=== PATIENT | female | born 1995 | race Caucasian/White ===

== ENCOUNTER 2020-06-08 16:24 | Outpatient (REF) | payer SELFPAY ==
[2020-06-10 21:31] LABS: SARS-CoV-2 RNA Undetected (Undetected)
== END 2020-06-08 16:44 ==
LOC: NCHCN 16:24
PROVIDERS: Visit Provider Family Medicine
DX: Z20.828 Contact with and (suspected) exposure to other viral communicable diseases (principal)
CPT/HCPCS: U0003

== ENCOUNTER 2020-07-28 14:55 | Outpatient (REF) | payer OTHER, SELFPAY ==
[2020-07-28 16:12] LABS: HCG Quant, Pregnancy 95 mIU/mL (1-3)
== END 2020-07-28 15:15 ==
LOC: LBN 14:55
PROVIDERS: Visit Provider Nurse Practitioner Family
DX: Z32.01 Encounter for pregnancy test, result positive (principal)
CPT/HCPCS: 84702

== ENCOUNTER 2020-07-31 08:00 | Outpatient (REF) | payer OTHER, SELFPAY ==
[2020-07-31 14:18] LABS: HCG Quant, Pregnancy 261 mIU/mL (1-3)
== END 2020-07-31 08:20 ==
LOC: LBN 08:00
PROVIDERS: Visit Provider Nurse Practitioner Family
DX: Z33.1 Pregnant state, incidental (principal)
CPT/HCPCS: 84702

== ENCOUNTER 2020-08-04 11:46 | Outpatient (REF) | payer OTHER, SELFPAY ==
[2020-08-04 14:19] LABS: HCG Quant, Pregnancy 2015 mIU/mL (1-3)
== END 2020-08-04 12:06 ==
LOC: LBN 11:46
PROVIDERS: Visit Provider Nurse Practitioner Family
DX: Z33.1 Pregnant state, incidental (principal)
CPT/HCPCS: 84702

== ENCOUNTER 2020-09-23 19:45 | Outpatient (REF) | payer OTHER, SELFPAY ==
[2020-09-23 20:14] LABS: Abs Immature Grans 0.04 10^3/uL (0.0-0.06); Absolute Basophil Count 0.02 10^3/uL (0.0-0.2); Absolute Eosinophil Count 0.06 10^3/uL (0.0-0.7); Absolute Lymphocyte Count 1.32 10^3/uL (1.2-3.4); Absolute Monocyte Count 0.36 10^3/uL (0.1-0.8); Absolute Neutrophil Count 4.96 10^3/uL (1.2-6.7); Basophils % 0.3; Eosinophils % 0.9; HCT 38.1 % (36.0-46.0); HGB 13.2 g/dL (11.2-15.7); Immature Grans % 0.6; Lymphocytes % 19.5; MCH 31.5 pg (27.0-33.0); MCHC 34.6 % (32.0-36.0); MCV 90.9 fL (80-95); MPV 12.8 fL (8.0-11.0); Monocytes % 5.3; Neutrophils % 73.4; Nucleated RBC 0 %; Platelet Count 175 10^3/uL (130-400); RBC 4.19 10^6/uL (3.93-5.22); RDW 13.2 % (11.7-14.6); RDW-SD 43.8 fL; WBC 6.76 10^3/uL (4.4-10.8)
[2020-09-23 21:11] LABS: Calculated LDL 109 mg/dL (<100); Cholesterol 194 mg/dL (<200); HDL Cholesterol 72 mg/dL (40-60); Triglyceride 68 mg/dL (<150)
[2020-09-25 09:27] LABS: Hepatitis B Surface Ag Negative (Negative)
[2020-09-25 09:48] LABS: Rubella IgG Ab (UVM) Positive (See Note); Syphilis Serology (RPR) Negative (Negative)
[2020-09-25 10:17] LABS: HIV-1/2 Ag & Ab Screen Negative (Negative)
== END 2020-09-23 20:05 ==
LOC: LBN 19:45
PROVIDERS: Nurse Practitioner Family; PCP Obstetrics & Gynecology; Visit Provider Obstetrics & Gynecology
DX: Z34.01 Encounter for supervision of normal first pregnancy, first trimester (principal); Z11.4 Encounter for screening for human immunodeficiency virus [HIV]; Z11.59 Encounter for screening for other viral diseases; Z01.84 Encounter for antibody response examination; Z13.220 Encounter for screening for lipoid disorders; Z00.00 Encounter for general adult medical examination without abnormal findings
CPT/HCPCS: 80061; 86850; 86900; 86901; 87340; 87389; 85025; 86592; 86762

== ENCOUNTER 2021-01-06 04:16 | Outpatient (CLI) | payer OTHER, SELFPAY ==
[2021-01-06 09:17] LABS: Abs Immature Grans 0.18 10^3/uL (0.0-0.06); Absolute Basophil Count 0.03 10^3/uL (0.0-0.2); Absolute Eosinophil Count 0.07 10^3/uL (0.0-0.7); Absolute Lymphocyte Count 1.22 10^3/uL (1.2-3.4); Absolute Monocyte Count 0.54 10^3/uL (0.1-0.8); Absolute Neutrophil Count 9.43 10^3/uL (1.2-6.7); Basophils % 0.3; Eosinophils % 0.6; HCT 34.2 % (36.0-46.0); HGB 12.1 g/dL (11.2-15.7); Immature Grans % 1.6; Lymphocytes % 10.6; MCH 32.7 pg (27.0-33.0); MCHC 35.4 % (32.0-36.0); MCV 92.4 fL (80-95); MPV 12.1 fL (8.0-11.0); Monocytes % 4.7; Neutrophils % 82.2; Nucleated RBC 0 %; Platelet Count 150 10^3/uL (130-400); RDW 14.9 % (11.7-14.6); RDW-SD 50.4 fL; WBC 11.47 10^3/uL (4.4-10.8)
== END 2021-01-06 04:17 | disposition home or self-care (01) ==
LOC: LBO 04:16
PROVIDERS: PCP Nurse Practitioner Family; Visit Provider Obstetrics & Gynecology
DX: Z36.89 Encounter for other specified antenatal screening (principal)
CPT/HCPCS: 36415; 82947; 82977; 85025

== ENCOUNTER 2021-01-14 03:18 | Outpatient (CLI) | payer OTHER, SELFPAY ==
[2021-01-14 09:40] LABS: Glucose 1 Hour 171 mg/dL
[2021-01-14 11:37] LABS: Glucose 3 Hour 159 mg/dL
== END 2021-01-14 03:19 | disposition home or self-care (01) ==
LOC: LBO 03:18
PROVIDERS: PCP Nurse Practitioner Family; Visit Provider Obstetrics & Gynecology
DX: R73.09 Other abnormal glucose (principal)
CPT/HCPCS: 36415; 82951

== ENCOUNTER 2021-03-10 04:28 | Outpatient (CLI) | payer OTHER, SELFPAY ==
[2021-03-10 10:56] LABS: Abs Immature Grans 0.09 10^3/uL (0.0-0.06); Absolute Basophil Count 0.02 10^3/uL (0.0-0.2); Absolute Eosinophil Count 0.06 10^3/uL (0.0-0.7); Absolute Lymphocyte Count 1.57 10^3/uL (1.2-3.4); Absolute Monocyte Count 0.69 10^3/uL (0.1-0.8); Absolute Neutrophil Count 8.14 10^3/uL (1.2-6.7); Basophils % 0.2; Eosinophils % 0.6; HCT 34.1 % (36.0-46.0); HGB 11.9 g/dL (11.2-15.7); Immature Grans % 0.9; Lymphocytes % 14.9; MCH 32.2 pg (27.0-33.0); MCHC 34.9 % (32.0-36.0); MCV 92.2 fL (80-95); MPV 12.3 fL (8.0-11.0); Monocytes % 6.5; Neutrophils % 76.9; Nucleated RBC 0 %; Platelet Count 145 10^3/uL (130-400); RDW 16.9 % (11.7-14.6); RDW-SD 55.8 fL; WBC 10.57 10^3/uL (4.4-10.8)
== END 2021-03-10 04:29 | disposition home or self-care (01) ==
PROVIDERS: PCP Nurse Practitioner Family; Visit Provider Obstetrics & Gynecology
DX: Z34.03 Encounter for supervision of normal first pregnancy, third trimester (principal)
CPT/HCPCS: 36415; 85025

== ENCOUNTER 2021-07-08 01:55 | Outpatient (CLI) | payer SELFPAY ==
[2021-07-09 10:05] LABS: HBs Antibody, Quant 31.5 mIU/mL (See Note); Hepatitis B Surface Ab Positive (See Note)
[2021-07-12 13:16] LABS: TB Interpretation Negative (Negative); TB2 Ag minus Nil 0.01 IU/mL
== END 2021-07-08 01:56 | disposition home or self-care (01) ==
LOC: LBO 01:57
PROVIDERS: PCP Nurse Practitioner Family; Visit Provider Nurse Practitioner Family
DX: Z02.1 Encounter for pre-employment examination (principal); Z01.84 Encounter for antibody response examination
CPT/HCPCS: 36415; 86706; 86480

== ENCOUNTER 2021-07-12 14:50 | Outpatient (REF) | payer SELFPAY ==
[2021-07-13 01:59] LABS: COVID-19 RT-PCR UVMMC Result Negative (Negative)
== END 2021-07-12 14:51 | disposition home or self-care (01) ==
LOC: LBN 14:50
PROVIDERS: PCP Nurse Practitioner Family; Visit Provider Nurse Practitioner Family
DX: Z20.822 Contact with and (suspected) exposure to COVID-19 (principal); J06.9 Acute upper respiratory infection, unspecified
CPT/HCPCS: U0003

== ENCOUNTER 2021-08-04 17:00 | Outpatient (REF) | payer OTHER, SELFPAY ==
[2021-08-06 14:50] LABS: COVID-19 RT-PCR UVMMC Result Negative (Negative)
== END 2021-08-04 17:01 | disposition home or self-care (01) ==
LOC: NCHCN 17:00
PROVIDERS: PCP Nurse Practitioner Family; Visit Provider Physician Assistant
DX: Z20.822 Contact with and (suspected) exposure to COVID-19 (principal); J06.9 Acute upper respiratory infection, unspecified
CPT/HCPCS: U0003

== ENCOUNTER 2024-03-07 05:03 | Outpatient (CLI) | payer BC, SELFPAY ==
[2024-03-07 08:56] LABS: Glucose 1 Hour 210 mg/dL
[2024-03-07 11:04] LABS: Glucose 3 Hour 148 mg/dL
== END 2024-03-07 05:04 | disposition home or self-care (01) ==
LOC: LBO 05:04
PROVIDERS: PCP Nurse Practitioner Family; Visit Provider Nurse Practitioner Women's Health
DX: R73.09 Other abnormal glucose (principal)
CPT/HCPCS: 36415; 82951

== ENCOUNTER 2024-10-17 21:09 | Outpatient (REF) | payer OTHER, SELFPAY ==
[2024-10-17 20:18] LABS: HCT 39.5 % (36.0-46.0); HGB 13.5 g/dL (11.2-15.7); MCH 30.6 pg (27.0-33.0); MCHC 34.2 % (32.0-36.0); MCV 90 fL (80-95); Platelet Count 169 10^3/uL (130-400); RBC 4.41 10^6/uL (3.93-5.22); RDW 13.2 % (11.7-14.6); RDW-SD 43.5 fL; WBC 6.69 10^3/uL (4.4-10.8)
[2024-10-17 20:40] LABS: TSH (W/Ref FT4) 1.81 uIU/mL (0.36-3.74)
--- OUTSIDE RECORDS SUMMARY | 2024-10-17 21:10 | XMS_ITS | Continuity of Care Document ---
Author Organization [facility] Ambulatory Clinics Address [address] [place] [address] Care Team Providers Care Board Certified Music Therapist Name Role Phone BEA ALONZO APRN, V Primary Care Physician Encounter [facility] NBR [id number] Date(s): 11/22/23 - 11/22/23 [facility] [address] [place] [address]- Encounter Diagnosis Encounter for supervision of normal in multigravida in second trimester(Discharge Diagnosis) - 11/22/23 History of gestational diabetes mellitus (GDM) in prior , currently (Discharge Diagnosis) - 11/22/23 Personal history of gestational diabetes(Discharge Diagnosis) - 11/22/23 Discharge Disposition: Home or Self Care Attending Physician: Shalini Edward APRN Assessment and Plan Extracted from: Title:OB Office Visit Note Author:Shalini Edward APRN Date:11/22/23 1.??Encounter for supervisio n of normal in multigravida in second trimester??Z34.82 Feeling well. No cramps or bleeding. Menstrual cycles were monthly and regular. Reviewed??NIPT/Inheritest Core Panel,??and plans to??decline at this time.??PN labs today. Opts to have US??with appt in 6 weeks. ?? Ordered: ABO/Rh Echo, Blood, Routine, 11/22/23, Once, Lab Collect, Encounter for supervision of normal in multigravida in second trimester, Order for future visit ABSC Echo, Blood, Routine, 11/22/23, Once, Lab Collect, Encounter for supervision of normal in multigravida in second trimester, Order for future visit CBC w/ Diff, Blood, Routine, 11/22/23, Once, Lab Collect, Encounter for supervision of normal in multigravida in second trimester, Order for future visit Chlamydia trachomatis and Neisseria gonorrhoeae (GeneXpert), Urine, Routine Collect, 11/22/23 15:50:00 EST, Once, Nurse collect, Print Label, Encounter for supervision of normal in multigravida in second trimester HBsAg Screen LC, Blood, Routine, 11/22/23, Once, Lab Collect, Encounter for supervision of normal in multigravida in second trimester, Order for future visit HCV Antibody Hitchcock to Quant PCR and Genotyping [id number] LC, Blood, Routine, 11/22/23, Once, Lab Collect, Encounter for supervision of normal in multigravida in second trimester, Order for future visit HIV Ag/Ab w/ Reflex to Conf LC, Blood, Routine, 11/22/23, Once, Lab Collect, Encounter for supervision of normal in multigravida in second trimester, Order for future visit Rubella Antibodies, IgG LC, Blood, Routine, 11/22/23, Once, Lab Collect, Encounter for supervision of normal in multigravida in second trimester, Order for future visit T pallidum Screening Hitchcock LC, Blood, Routine, 11/22/23, Once, Lab Collect, Encounter for supervision of normal in multigravida in second trimester, Order for future visit US OB Greater Than 14 Weeks, 11/22/23, Routine, Reason: anatomy scan, Transport Mode: Ambulatory, Encounter for supervision of normal in multigravida in second trimester ?? 2.??History of gestational diabetes mellitus (GDM) in prior , currently ??O09.299 Will add A1C to PN labs today. Ordered: Hgb A1c, Blood, Routine, 11/22/23, Once, Lab Collect, History of gestational diabetes mellitus (GDM) in prior , currently , Order for future visit ?? Personal history of gestational diabetes??Z86.32 ?? Future Appointments Appointment Date:01/03/2024 02:00:00 PM Scheduled Provider:Shalini Edward APRN Location:[facility] Appointment Type:OB Follow Up Future Scheduled Tests Radiology* US OB Greater Than 14 Weeks 11/22/23 Medications escitalopram 10 mg oral tablet 10 mg = 1 tab, Oral, Daily, # 30 tab, 0 Refill(s) Start Date: 09/27/23 Status: Ordered ferrous sulfate 325 mg (65 mg elemental iron) oral tablet 325 mg = 1 tab, Oral, Daily, # 90 tab, 0 Refill(s) Start Date: 09/27/23 Status: Ordered levonorgestrel-ethinyl estradiol oral tablet 1 tab, Oral, Daily, Levonorgestrel-ethinyl estrad 0.1-20mg-mcg tablet (levonorgestrel-ethinyl estrad) take 1 tablet by mouth once a day for contraception., 0 Refill(s) Start Date: 09/27/23 Stop Date: 12/27/23 Status: Ordered Multivitamins One-a-day womens 28-0.8 &44mg as directed orally., 0 Refill(s) Start Date: 09/27/23 Status: Ordered Problem List Condition Confirmation Course Effective Dates Status Health St atus Informant Anxiety Confirmed Active Diabetes, gestational 1 Confirmed 2020 Active History of gestational diabetes mellitus (GDM) in prior , currently Confirmed Active Encounter for supervision of normal in multigravida in second trimester Confirmed Active Confirmed 08/21/23 Active 1Diet controlled, A1c 4.5 post-delivery. 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 Completed Adenoidectomy 2002 Completed Results Most recent to oldest [Reference Range]: 1 Protein Urine Dipstick Trace (11/22/23 3:48 PM) Glucose Urine Dipstick Negative (11/22/23 3:48 PM) Urine Color Urine Dipstick Pale yellow (11/22/23 3:48 PM) Urine Appearance Urine Dipstick Clear (11/22/23 3:48 PM) Vital Signs Most recent to oldest [Reference Range]: 1 Blood Pressure [90-140/60-90 mmHg] 114/7 8mmHg (11/22/23 3:48 PM) Mean Arterial Pressure, Cuff [70-110 mmH g] 90 mmHg (11/22/23 3:48 PM) Weight 57.2 kg (11/22/23 3:48 PM) Weight Measured (lbs) 126.104 lb (11/22/23 3:48 PM) Weight Dosing 57.200 kg (11/22/23 3:48 PM) [place] Body Weight Calculated 57 kg (11/22/23 3:48 PM) Height 165.10 cm (11/22/23 3:48 PM) Height/Length Measured (inches) 65 inch (11/22/23 3:48 PM) BSA Measured 1.62 m2 (11/22/23 3:48 PM) Body Mass Index 20.98 kg/m2 (11/22/23 3:48 PM) Social History Social History Type Response Smoking Status Smoking tobacco use: Never tobacco user;Never entered on: 11/22/23 Sex Physician Outpatient Note * Shalini Edward APRN: PERFORM Event Display: Office Clinic Note Physician Authored Date: [id number] LOC TAVERAS :1995 Age:28 years Sex:Female Visit Date:11/22/2023 Primary Care Physician: BEA ALONZO APRN, V BRAD/EGA Gestational Age (EGA) and BRAD? * Note: EGA calculated as of 11/22/2023 ?? BRAD:??05/27/2024?EGA*:??13 weeks 2 days ?Type:??Authoritative?Method Date:??08/21/2023 ?Method:??Last Menstrual Period??(08/21/2023) ?Confirmation:??Confirmed ?Description:??-- ?Comments:??-- ?Entered by:??Cheyanne Shields on 11/22/2023? Other BRAD Calculations for this : ?No additional BRAD calculations have been recorded for this Chief Complaint new OB appt, has not yet been seen for LMP 08/21/23 within a day or two Physical Exam Vitals & Measurements BP:??114/78?? HT:??165.10??cm?? WT:??57.2??kg?? BMI:??20.98?? BSA:??1.62?? [facility] General Physical Exam:?GENERAL?Alert and oriented, well nourished, no acute distress. Reasonable historian.?EYES Pupils equal ? HEENT Normocephalic, grossly normal hearing, moist oral mucosa ? NECK?Supple, no thyroid enlargement, no lymphadenopathy?RESPIRATORY?Clear to auscultation, non-labored respiration ?CARDIAC?Normal rate, regular rhythm, no murmurs ?ABDOMEN?Soft, nontender..? Risk Factors Risk Factors, Antepartum Current Preg: Other: Hx of diet controlled GDM (11/22/23) Assessment/Plan 1.??Encounter for supervision of normal in multigravida in second trimester??Z34.82 Feeling well. No cramps or bleeding. Menstrual cycles were monthly and regular. Reviewed??NIPT/Inheritest Core Panel,??and plans to??decline at this time.??PN labs today. Opts to have US??with appt in 6 weeks. ?? Ordered: ABO/Rh Echo, Blood, Routine, 11/22/23, Once, Lab Collect, Encounter for supervision of normal in multigravida in second trimester, Order for future visit ABSC Echo, Blood, Routine, 11/22/23, Once, Lab Collect, Encounter for supervision of normal in multigravida in second trimester, Order for future visit CBC w/ Diff, Blood, Routine, 11/22/23, Once, Lab Collect, Encounter for supervision of normal in multigravida in second trimester, Order for future visit Chlamydia trachomatis and Neisseria gonorrhoeae (GeneXpert), Urine, Routine Collect, 11/22/23 15:50:00 EST, Once, Nurse collect, Print Label, Encounter for supervision of normal in multigravida in second trimester HBsAg Screen LC, Blood, Routine, 11/22/23, Once, Lab Collect, Encounter for supervision of normal in multigravida in second trimester, Order for future visit HCV Antibody Hitchcock to Quant PCR and Genotyping [id number] LC, Blood, Routine, 11/22/23, Once, Lab Collect, Encounter for supervision of normal in multigravida in second trimester, Order for future visit HIV Ag/Ab w/ Reflex to Conf LC, Blood, Routine, 11/22/23, Once, Lab Collect, Encounter for supervision of normal in multigravida in second trimester, Order for future visit Rubella Antibodies, IgG LC, Blood, Routine, 11/22/23, Once, Lab Collect, Encounter for supervision of normal in multigravida in second trimester, Order for future visit T pallidum Screening Hitchcock LC, Blood, Routine, 11/22/23, Once, Lab Collect, Encounter for supervision of normal in multigravida in second trimester, Order for future visit US OB Greater Than 14 Weeks, 11/22/23, Routine, Reason: anatomy scan, Transport Mode: Ambulatory, Encounter for supervision of normal in multigravida in second trimester ?? 2.??History of gestational diabetes mellitus (GDM) in prior , currently ??O09.299 Will add A1C to PN labs today. Ordered: Hgb A1c, Blood, Routine, 11/22/23, Once, Lab Collect, History of gestational diabetes mellitus (GDM) in prior , currently , Order for future visit ?? Personal history of gestational diabetes??Z86.32 ?? Cards Exam and Notes ?? Exams and Notes ?? Date:??11/22/23 EGA:??13w2d Weight (lbs kg):??*126... Fundal Height (cm):??13 ? Blood Pressure (mmHg):??114/78 ? Cervix Exam (Dil cm/Eff %/Sta -):--/--/--?? Labor S/S:??None Urine Glucose:?? Urine Protein:?? Next Visit:??+6 weeks from 11/22/2023 Baby A?FHR:??160 ? Movement:?Presentation:??-- ? Problem List/Past Medical History Ongoing Anxiety Diabetes, gestational Encounter for supervision of normal in multigravida in second trimester History of gestational diabetes mellitus (GDM) in prior , currently Historical Procedure/Surgical History ???Right foot - removal of extra bone (2006)???Adenoidectomy (2002) Medications escitalopram 10 mg oral tablet, 10 mg= 1 tab, Oral, Daily ferrous sulfate 325 mg (65 mg elemental iron) oral tablet, 325 mg= 1 tab, Oral, Daily levonorgestrel-ethinyl estradiol oral tablet, 1 tab, Oral, Daily Multivitamins Allergies No active allergies Social History Alcohol Past, Beer Electronic Cigarette/Vaping Electronic Cigarette Use: Never. 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 Living situation: Home/Independent. Sexual Sexually active: Yes. Substance Use Never Tobacco Never tobacco user Tobacco Use:. Never Smokeless Tobacco use:. Family History Cancer: Mother and Grandfather (M). Hypercholesterolemia: Father. Hypertension: Father and Grandfather (P). Other: Brother, Aunt/Uncle and Aunt/Uncle. PCM Transcribed Labs No qualifying data Electronically Signed on 11/22/23 04:33 PM Shalini Edward APRN Patient Care team information Care Team Personnel Name: BEA ALONZO APRN, V Position: No Access Member Role: Primary Care Physician Address: Address: [address]
--- OUTSIDE RECORDS SUMMARY | 2024-10-17 21:10 | XMS_ITS | Continuity of Care Document ---
Author Organization [facility] Ambulatory Clinics Address [address] [place] [address] Care Team Providers Care Pre Kindergarten Teacher Name Role Phone CHERI SANCHEZNSTEFANJYOTSNA Srivastava Primary Care Physician Encounter [facility] NBR [id number] Date(s): 01/03/24 - 01/03/24 [facility] Ambulatory Clinics [address] [place] [address]- Encounter Diagnosis Encounter for supervision of normal in multigravida in second trimester(Discharge Diagnosis) - 01/03/24 Discharge Disposition: Home or Self Care Attending Physician: Shalini Edward APRN Allergies, Adverse Reactions, Alerts No Known Medication Allergies Assessment and Plan Extracted from: Title:OB Extended Office Visit Author:Shalini giron APRN Date:01/03/24 1.??Encounter for supervisio n of normal in multigravida in second trimester??Z34.82 US today, reviewed report. +FM. Gender unknown. Ordered: Urine Culture, Urine, Clean Catch, Routine collect, RT - Routine, 01/03/24 14:56:00 EDT, Once, Nurse collect, Encounter for supervision of normal in multigravida in second trimester ?? Future Appointments Appointment Date:02/02/2024 09:15:00 AM Scheduled Provider:Yfn Tejada MD Location:[facility] Appointment Type:OB Follow Up Medications escitalopram 10 mg oral tablet 10 [...] Date: 09/27/23 Stop Date: 12/27/23 Status: Ordered magnesium glycinate 200 mg oral tablet 400 mg = 2 tab, Daily, 0 Refill(s) Start Date: 01/03/24 Status: Ordered Multivitamins One-a-day womens 28-0.8 &44mg [...] [Reference Range]: 1 Protein Urine Dipstick Trace (01/03/24 2:53 PM) Glucose Urine Dipstick Negative (01/03/24 2:53 PM) Urine Color Urine Dipstick Straw (01/03/24 2:53 PM) Urine Appearance Urine Dipstick Clear (01/03/24 2:53 PM) Vital Signs Most recent to oldest [Reference Range]: 1 Blood Pressure [90-140/60-90 mmHg] 120/7 4mmHg (01/03/24 2:53 PM) Mean Arterial Pressure, Cuff [65-140 mmH g] 89 mmHg (01/03/24 2:53 PM) Weight 60.2 kg (01/03/24 2:53 PM) Weight Measured (lbs) 132.718 lb (01/03/24 2:53 PM) Weight Dosing 60.200 kg (01/03/24 2:53 PM) [place] Body Weight Calculated 57 kg (01/03/24 2:53 PM) Height 165.1 cm (01/03/24 2:53 PM) Height/Length Measured (inches) 65 inch (01/03/24 2:53 PM) BSA Measured 1.66 m2 (01/03/24 2:53 PM) Body Mass Index 22.09 kg/m2 (01/03/24 2:53 PM) Social History Social History Type Response Smoking Status Smoking tobacco use: Never tobacco user;Never entered on: 11/22/23 Sex Physician Outpatient Note * Shalini Edward APRN: PERFORM Event Display: Office Clinic Note Physician Authored Date: [id number] LOC TAVERAS Agustina :1995 Age:28 years Sex:Female Visit Date:01/03/2024 Primary Care Physician: BEA ALONZO APRN, V Chief Complaint OB follow up Urine Cx today had US pre appt Visit Baby A FHR Baseline:145 Vital Signs/Measurements Systolic Blood Aejaujac379 mmHg Diastolic Blood Ybooaind46 mmHg Kxkubp31.2 kg Edema EdemaNone Urine POC Protein Urine DipstickTrace Glucose Urine DipstickNegative Fundal Height Fundal Jomghk02 cm Labor Labor Signs/SymptomsNone Additional Information Antepartum CommentUS today, reviewed report Next Appointment4 weeks Physical Exam Vitals & Measurements BP:??120/74?? HT:??165.1??cm?? WT:??60.2??kg?? BMI:??22.09?? BSA:??1.66?? Assessment/Plan 1.??Encounter for supervision of normal in multigravida in second trimester??Z34.82 US today, reviewed report. +FM. Gender unknown. Ordered: Urine Culture, Urine, Clean Catch, Routine collect, RT - Routine, 01/03/24 14:56:00 EDT, Once, Nurse collect, Encounter for supervision of normal in multigravida in second trimester ?? Follow Up Instructions 4 weeks LMP/EGA/BRAD No qualifying data available. Gestational Age (EGA) and BRAD? * Note: EGA calculated as of 01/03/2024 ?? BRAD:??05/27/2024?EGA*:??19 weeks 2 days ?Type:??Authoritative?Method Date:??08/21/2023 ?Method:??Last Menstrual Period??(08/21/2023) ?Confirmation:??Confirmed ?Description:??-- ?Comments:??-- ?Entered by:??Cheyanne Shields on 11/22/2023? Other BRAD Calculations for this : ?Method:??Ultrasound ?Method Date:??01/03/2024 ?BRAD:??05/26/2024 ?EGA (At Entry):??19 weeks 3 days ?Type:??Non-Authoritative ?Comments:??normal appearing anatomy ?Entered by:??Shalini Edward APRN on 01/03/2024 OB History History?(1,0,0,1)? # 1 ?Baby 1 ?Outcome Date:??04/06/2021?Outcome or Result:??Vaginal ?Gest Age:??40 weeks 2 days ? Outcome:??Live ? Sex:??Female?Wt:?3629 g ?Child's Name:??Jerica ?Hospital:??[facility] ?Comment:??gestational diabetes, diet controlled Risk Screening Risk Factors (Current ) Unique Risk Factors:?Other: Hx of diet controlled GDM ?? Ethnic Screening Self, Baby's father: ? Genetic Disorders Screening Baby's Mother - Negative, Baby's Father - Negative:?? Defect, Cystic Fibrosis, Down Syndrome, Hemophilia, Bevington's Chorea, *Mental Retardation, Muscular Dystrophy, Neural Tube, Sickle Cell Disease, Richard Sachs, Thalassemia, Madhav Disease, Congenital Heart Defect, Maternal Metabolic Disorder, Recurrent Preg Loss/Stillbirth ?? *Comments Mental Retardation:??pt has one ci=ousin who is delayed Problem List/Past Medical History Ongoing Anxiety Diabetes, [...] estradiol oral tablet, 1 tab, Oral, Daily magnesium glycinate 200 mg oral tablet, 400 mg= 2 tab, Daily Multivitamins Allergies No Known Medication Allergies Social History Alcohol Past, Beer Electronic Cigarette/Vaping Electronic Cigarette Use: Never. 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 Living situation: Home/Independent. Sexual Sexually active: Yes. Substance Use Never Tobacco Never tobacco user Tobacco Use:. Never Smokeless Tobacco use:. Family History Cancer: Mother and Grandfather (M). Healthy child: Daughter. Hypercholesterolemia: Father. Hypertension: Father and Grandfather (P). Other: Brother, Aunt/Uncle and Aunt/Uncle. Transcribed Labs ABO/Rh Echo: O POS Blood Type, Transcribed: O positive Chlamydia Date Performed: 11/22/23 Chlamydia, Transcribed: Negative Gonorrhea Date Performed: 11/22/23 Gonorrhea, Transcribed: Negative Hepatitis B Date Performed: 11/22/23 Hepatitis B, Transcribed: Negative HIV Antibodies, Transcribed: Negative HIV Date Performed: 11/22/23 RPR Date Performed: 11/22/23 RPR, Transcribed: Negative Rubella Date Performed: 11/22/23 Rubella,Transcribed: Immune Electronically Signed on 01/03/24 03:42 PM Shalnii Edward APRN Patient Care team information Care Team Personnel Name: BEA ALONZO APRN, V Position: No Access Member Role: Primary Care Physician Address: Address: [place] [address]- Care Team Related Persons Name: FAHAD TAVERAS
--- OUTSIDE RECORDS SUMMARY | 2024-10-17 21:10 | XMS_ITS | Continuity of Care Document ---
Author Organization [facility] Ambulatory Clinics Address [address] [place] [address] Care Team Providers Care Customer Operations Associate Name Role Phone BEA ALONZO APRN, V Primary Care Physician Encounter [facility] NBR [id number] Date(s): 03/06/24 - 03/06/24 [facility] Ambulatory Clinics [address] [place], [place] [id number]- [place] Discharge Disposition: Home Allergies, Adverse Reactions, Alerts No Known Medication Allergies Assessment and Plan Future Appointments Appointment Date:03/22/2024 04:00:00 PM Scheduled Provider:Kelvin Martinez MD Location:[facility] Appointment Type:OB Follow Up Appointment Date:04/04/2024 04:00:00 PM Scheduled Provider:Yfn Tejada MD Location:[facility] Appointment Type:OB Follow Up Appointment Date:04/16/2024 04:00:00 PM Scheduled Provider:Yfn Tejada MD Location:[facility] Appointment Type:OB Follow Up Appointment Date:05/02/2024 04:15:00 PM Scheduled Provider:Rod Samuel MD Location:[facility] Appointment Type:OB Follow Up Appointment Date:05/09/2024 04:15:00 PM Scheduled Provider:Shalini Edward APRN Location:[facility] Appointment Type:OB Follow Up Appointment Date:05/16/2024 09:15:00 AM Scheduled Provider:Rod Samuel MD Location:[facility] Appointment Type:OB Follow Up Appointment Date:05/23/2024 08:45:00 AM Scheduled Provider:Yfn Tejada MD Location:[facility] Appointment Type:OB Follow Up Appointment Date:05/30/2024 04:00:00 PM Scheduled Provider:Yfn Tejada MD Location:[facility] Appointment Type:OB Follow Up Future Scheduled Tests Laboratory* .GTT 3 HR OB 100gm 03/05/24 * .GTT 2 HR OB 100gm 03/05/24 * .GTT 1 HR OB 100gm 03/05/24 * .GTT Fasting OB 03/05/24 Radiology* US OB Follow Up 03/22/24 Immunizations Given and Recorded Vaccine Date Status Refusal Reason tetanus/diphth/pertuss (Tdap) adult/adol 03/05/24 Given Medications escitalopram 10 mg oral tablet 10 [...] Ordered magnesium glycinate 200 mg oral tablet 200 mg = 1 tab, Daily, 0 Refill(s) Start Date: 01/03/24 Status: Ordered omeprazole 20 mg oral delayed release capsule 0 Refill(s) Start Date: 03/05/24 Status: Ordered Multivitamins One-a-day womens 28-0.8 &44mg as directed orally., 0 Refill(s) Start Date: 09/27/23 Status: Ordered Problem List Condition Confirmation Course Effective Dates Status Health St atus Informant Anxiety Confirmed Active Size of fetus inconsistent with dates in third trimester Confirmed Active Diabetes, gestational 1 Confirmed 2020 Active Abnormal glucose tolerance test Confirmed Active History of gestational diabetes mellitus (GDM) in prior , currently Confirmed Active Encounter for supervision of normal in multigravida in second trimester Confirmed Active Encounter for supervision of normal in multigravida in third trimester Confirmed Active Confirmed 08/21/23 Active 1Diet controlled, A1c 4.5 post-delivery. 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 Completed Adenoidectomy 2002 Completed Social History Social History Type Response Smoking Status Smoking tobacco use: Never tobacco user;Never entered on: 11/22/23 Sex Patient Care team information Care Team Personnel Name: BEA ALONZO APRN, V Position: No Access Member Role: Primary Care Physician Address: Address: [place] [address]- Care Team Related Persons Name: FAHAD TAVERAS Address: Home
--- OUTSIDE RECORDS SUMMARY | 2024-10-17 21:10 | XMS_ITS | Continuity of Care Document ---
Author Organization [facility] Ambulatory Clinics Address [address] [place] [address] Care Team Providers Care Head Transfer Clerk Name Role Phone BEA ALONZO APRN, V Primary Care Physician Encounter [facility] NBR [id number] Date(s): 01/04/24 - 01/04/24 [facility] Ambulatory Clinics [address] [place], [place] [phone]- [place] Discharge Disposition: Home Allergies, Adverse Reactions, Alerts No Known Medication Allergies Assessment and Plan Future Appointments Appointment Date:02/02/2024 09:15:00 AM Scheduled Provider:Yfn Tejada MD Location:[facility] Appointment Type:OB Follow Up Medications escitalopram [...] Member Role: Primary Care Physician Address: Address: [address] Care Team Related Persons Name: FAHAD TAVERAS
--- OUTSIDE RECORDS SUMMARY | 2024-10-17 21:10 | XMS_ITS | Continuity of Care Document ---
Author Organization [facility] Address [address] [place] [address] Care Team Providers Care Collar Cutter Name Role Phone BEA ALONZO APRN, V Primary Care Physician Encounter [facility] NBR [id number] Date(s): 04/05/24 - 04/05/24 [facility] [address] [place], [place] [id number]- us Discharge Disposition: Home Allergies, Adverse Reactions, Alerts No Known Medication Allergies Assessment and Plan Future Appointments Appointment Date:04/16/2024 04:00:00 PM Scheduled Provider:Yfn Tejada MD Location:[facility] Appointment Type:OB Follow Up Appointment Date:05/02/2024 04:15:00 PM Scheduled Provider:Rod Samuel MD Location:[facility] Appointment Type:OB Follow Up Appointment Date:05/09/2024 04:15:00 PM Scheduled Provider:Shalini Edward APRN Location:[facility] Appointment Type:OB Follow Up Appointment Date:05/16/2024 09:15:00 AM Scheduled Provider:Rod Samuel MD Location:[facility] Appointment Type:OB Follow Up Appointment Date:05/23/2024 08:45:00 AM Scheduled Provider:Yfn Tejada MD Location:[facility] Appointment Type:OB Follow Up Appointment Date:05/30/2024 04:00:00 PM Scheduled Provider:Yfn Tejada MD Location:[facility] Appointment Type:OB Follow Up Future Scheduled Tests Laboratory* .GTT 3 HR OB 100gm 03/05/24 * .GTT 2 HR OB 100gm 03/05/24 * .GTT 1 HR OB 100gm 03/05/24 * .GTT Fasting OB 03/05/24 Radiology* US OB Follow Up 04/30/24 Immunizations Given and Recorded Vaccine Date Status [...] 0 Refill(s) Start Date: 09/27/23 Status: Ordered freestyle freedom lite lancets freestyle freedom lite lancets, 4x daily testing. Box of 100, Supply, See instructions, # 1 EA, 1 Refill(s), Pharmacy: [id number] Start Date: 03/08/24 Status: Ordered freestyle freedom lite strips freestyle freedom lite strips, 4x daily testing. box of 100, Supply, See instructions, # 1 EA, 1 Refill(s), Pharmacy: [id number] Start Date: 03/08/24 Status: Ordered magnesium glycinate 200 mg oral [...] Member Role: Primary Care Physician Address: Address: [place] [address]- Care Team Related Persons Name: FAHAD TAVERAS Address: Home
--- OUTSIDE RECORDS SUMMARY | 2024-10-17 21:10 | XMS_ITS | Continuity of Care Document ---
Author Organization [facility] Address [address] [place] [address] Care Team Providers Care Metalizing Supervisor Name Role Phone BEA ALONZO APRN, V Primary Care Physician Encounter [facility] NBR [id number] Date(s): 05/16/24 - 05/16/24 [facility] [address] [place] [address]- Encounter Diagnosis Encounter for supervision of normal in multigravida in third trimester (Discharge Diagnosis) - 05/16/24 Gestational diabetes mellitus in , diet controlled(Discharge Diagnosis) - 05/16/24 Discharge Disposition: Home or Self Care Attending Physician: Rod Samuel MD Allergies, Adverse Reactions, Alerts No Known Medication Allergies Assessment and Plan Extracted from: Title:OB Extended Office Visit Author:Rod barr MD Date:05/16/24 1.??Encounter for supervisio n of normal in multigravida in third trimester??Z34.83 ??Doing well.?? FSBGs are??staying in the approp??ranges. 2.??Gestational diabetes mellitus in , diet controlled??O24.410 Future Appointments Appointment Date:05/23/2024 08:45:00 AM Scheduled Provider:Yfn Tejada MD Location:[facility] Appointment Type:OB Follow Up Appointment Date:05/30/2024 04:00:00 PM Scheduled Provider:Yfn Tejada MD Location:[facility] Appointment Type:OB Follow Up Future Scheduled Tests Laboratory* .GTT 3 HR OB 100gm 03/05/24 * .GTT 2 HR OB 100gm 03/05/24 * .GTT 1 HR OB 100gm 03/05/24 * .GTT Fasting OB 5/21/24 Immunizations Given and Recorded Vaccine Date Status Refusal Reason tetanus/diphth/pertuss (Tdap) adult/adol 03/05/24 Given Medications citalopram 10 mg oral tablet 10 mg = 1 tab, Oral, Daily, # 90 tab, 4 Refill(s), Pharmacy: [id number], 165.1, cm, 05/02/24 16:11:00 EDT, Height, 64.2, kg, 05/02/24 16:16:00 EDT, Weight Dosing Start Date: 05/02/24 Stop Date: 07/26/25 Status: Ordered escitalopram 10 mg oral tablet 10 mg [...] instructions, # 1 EA, 1 Refill(s), Pharmacy: [id number] Start Date: 03/08/24 Status: Ordered freestyle freedom lite strips freestyle freedom lite strips, 4x daily testing. box of 100, Supply, See instructions, # 1 EA, 1 Refill(s), Pharmacy: [id number] Start Date: 03/08/24 Status: Ordered magnesium glycinate [...] Active En[facility] Confirmed Active Confirmed 08/21/23 Active 1Diet controlled, A1c 4.5 post-delivery. 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 Completed Adenoidectomy 2002 Completed Vital Signs Most recent to oldest [Reference Range]: 1 Blood Pressure [90-140/60-90 mmHg] 110/6 8mmHg (05/16/24 4:05 PM) Mean Arterial Pressure, Cuff [65-140 mmH g] 82 mmHg (05/16/24 4:05 PM) Weight 63.6 kg (05/16/24 4:05 PM) Weight Measured (lbs) 140.214 lb (05/16/24 4:05 PM) Weight Dosing 63.600 kg (05/16/24 4:05 PM) [place] Body Weight Calculated 57 kg (05/16/24 4:05 PM) Height 165.1 cm (05/16/24 4:05 PM) Height/Length Measured (inches) 65 inch (05/16/24 4:05 PM) BSA Measured 1.71 m2 (05/16/24 4:05 PM) Body Mass Index 23.33 kg/m2 (05/16/24 4:05 PM) Social History Social History Type Response Smoking Status Smoking tobacco use: Never tobacco user;Never entered on: 11/22/23 Sex Physician Outpatient Note * Rod Samuel MD: PERFORM Event Display: Office Clinic Note Physician Authored Date: [id number] LOC TAVERAS Agustina :1995 Age:28 years Sex:Female Visit Date:05/16/2024 Primary Care Physician: BEA ALONZO APRN, V Chief Complaint OB follow-up History of Present Illness No issues.?? No contractions. Visit Baby A Presentation:Vertex Activity:Present per patient FHR Baseline:140 Vital Signs/Measurements Systolic Blood Qodtopvx365 mmHg Diastolic Blood Fcfmdsqd83 mmHg Gjptnh37.6 kg Fundal Height Fundal Kgjnuq64 cm Additional Information Antepartum CommentHoping for spont labor. Next Appointment1 weeks Physical Exam Vitals & Measurements BP:??110/68?? HT:??165.1??cm?? WT:??63.6??kg?? BMI:??23.33?? BSA:??1.71?? Assessment/Plan 1.??Encounter for supervision of normal in multigravida in third trimester??Z34.83 ??Doing well.?? FSBGs are??staying in the approp??ranges. 2.??Gestational diabetes mellitus in , diet controlled??O24.410 LMP/EGA/BRAD No qualifying data available. Gestational Age (EGA) and BRAD? * Note: EGA calculated as of 05/16/2024 ?? BRAD:??05/27/2024?EGA*:??38 weeks 3 days ?Type:??Authoritative?Method Date:??08/21/2023 ?Method:??Last Menstrual Period??(08/21/2023) ?Confirmation:??Confirmed ?Description:??-- ?Comments:??-- ?Entered by:??Cheyanne Shields on 11/22/2023? Other BRAD Calculations for this : ?Method:??Ultrasound ?Method Date:??04/30/2024 ?BRAD:??05/31/2024 ?EGA (At Entry):??35 weeks 4 days ?Type:??Non-Authoritative ?Comments:??Vtx, CHANA 14.7, FL measurement listed is smallest of 2 obtained- remainder of measurements ? reassuring for growth. ??No further US's necessary. ?Entered by:??Rod Samuel MD on 05/01/2024 ?Method:??Ultrasound ?Method Date:??03/22/2024 ?BRAD:??05/13/2024 ?EGA (At Entry):??32 weeks 4 days ?Type:??Non-Authoritative ?Comments:??Breech presentation, EFW 1912g (4# 3oz), 88th percentile, CHANA 23 cm. ?Entered by:??Shalini Edward APRN on 03/28/2024 ?Method:??Ultrasound ?Method Date:??01/03/2024 ?BRAD:??05/26/2024 ?EGA (At Entry):??19 weeks 3 days ?Type:??Non-Authoritative ?Comments:??normal appearing anatomy ?Entered by:??Shalini Edward APRN on 01/03/2024 OB History History?(1,0,0,1)? # 1 ?Baby 1 ?Outcome Date:??04/06/2021?Outcome or Result:??Vaginal ?Gest Age:??40 weeks 2 days ? Outcome:??Live ? Sex:??Female?Wt:?3629 g ?Child's Name:??Jerica ?Hospital:??[facility] ?Comment:??gestational diabetes, diet controlled Risk Screening Risk Factors (Current ) Unique Risk Factors:?Other: US 7/16 - Growth 40th percentile., Other: Growth 88% - Repeat growthUS 36-37 weeks., Other: platelets 109, Other: Hx of diet controlled GDM ?? Ethnic Screening Self, Baby's father: ? Genetic Disorders Screening Baby's Mother - Negative, Baby's Father - Negative:?? Defect, Cystic Fibrosis, Down Syndrome, Hemophilia, S[place]'s Chorea, *Mental Retardation, Muscular Dystrophy, Neural Tube, Sickle Cell Disease, Richard Sachs, Thalassemia, Madhav Disease, Congenital Heart Defect, Maternal Metabolic Disorder, Recurrent Preg Loss/Stillbirth ?? *Comments Mental Retardation:??pt has one ci=ousin who is delayed Problem List/Past Medical History Ongoing Abnormal glucose tolerance test Anxiety Diabetes, gestational Encounter for supervision of normal in multigravida in third trimester History of gestational diabetes mellitus (GDM) in prior , currently Size of fetus inconsistent with dates in third trimester Historical Procedure/Surgical History ???Right foot - removal of extra bone (2006)???Adenoidectomy (2002) Medications citalopram 10 mg oral tablet, 10 mg= 1 tab, Oral, Daily, 4 refills escitalopram 10 mg oral tablet, 10 mg= 1 tab, Oral, Daily ferrous sulfate 325 mg (65 mg elemental iron) oral tablet, 325 mg= 1 tab, Oral, Daily freestyle freedom lite lancets, See instructions, 1 refills freestyle freedom lite strips, See instructions, 1 refills magnesium glycinate 200 mg oral tablet, 200 mg= 1 tab, Daily omeprazole 20 mg oral delayed release capsule Multivitamins Allergies No Known Medication Allergies Social History Alcohol Past, Beer Electronic Cigarette/Vaping Electronic Cigarette Use: Never. 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 Living situation: Home/Independent. Sexual Sexually active: Yes. Substance Use Never Tobacco Never tobacco user Tobacco Use:. Never Smokeless Tobacco use:. Family History Cancer: Mother and Grandfather (M). Healthy child: Daughter. Hypercholesterolemia: Father. Hypertension: Father and Grandfather (P). Other: Brother, Aunt/Uncle and Aunt/Uncle. Immunizations Vaccine Date Status tetanus/diphth/pertuss (Tdap) adult/adol 03/05/2024 Given Transcribed Labs ABO/Rh Echo: O POS Blood Type, Transcribed: O positive Chlamydia Date Performed: 11/22/23 Chlamydia, Transcribed: Negative Genetic Testing, Results Text: patient declined Genetic Testing, Transcribed: No Gonorrhea Date Performed: 11/22/23 Gonorrhea, Transcribed: Negative Hepatitis B Date Performed: 11/22/23 Hepatitis B, Transcribed: Negative HIV Antibodies, Transcribed: Negative HIV Date Performed: 11/22/23 RPR Date Performed: 11/22/23 RPR, Transcribed: Negative Rubella Date Performed: 11/22/23 Rubella,Transcribed: Immune Electronically Signed on 05/16/2024 16:56 EDT Rod Samuel MD Patient Care team information Care Team Personnel Name: BEA ALONZO APRN, V Position: No Access Member Role: Primary Care Physician Address: Address: [address] Care Team Related Persons Name: FAHAD TAVERAS
--- OUTSIDE RECORDS SUMMARY | 2024-10-17 21:10 | XMS_ITS | Continuity of Care Document ---
Author Organization [facility] Address [address] [place] [address] Care Team Providers Care Dumper [employer] Name Role Phone BEA ALONZO APRN, V Primary Care Physician ( [phone] [id number] Date[facility]s): 03/05/24 - 03/05/[address] [id number]- [place] Encounter Diagnosis Encounter for supervision of other normal , third trimester(Final) - Weeks of gestation of not specified(Final) - Discharge Disposition: Home or Self Care Attending Physician: Shalini Edward APRN Admitting Physician: Shalini Edward APRN Referring Physician: Shalini Edward APRN Allergies, Adverse Reactions, Alerts No Known Medication Allergies Assessment and Plan Future Appointments Appointment Date:03/22/2024 04:00:00 PM Scheduled Provider:Kelvin Martinez MD Location:[facility] Appointment Type:OB Follow Up Appointment Date:04/04/2024 04:00:00 PM Scheduled Provider:Yfn Tejada MD Location:[facility] Appointment Type:OB Follow Up Appointment Date:04/16/2024 04:00:00 PM Scheduled Provider:Yfn Tejada MD Location:[facility] Appointment Type:OB Follow Up Appointment Date:05/02/2024 04:15:00 PM Scheduled Provider:Rod Samuel MD Location:[facility] Appointment Type:OB Follow Up Appointment Date:05/09/2024 04:15:00 PM Scheduled Provider:Shalini Edward APRN Location:[facility] Appointment Type:OB Follow Up Appointment Date:05/16/2024 09:15:00 AM Scheduled Provider:Rod Samuel MD Location:[facility] Appointment Type:OB Follow Up Appointment Date:05/23/2024 08:45:00 AM Scheduled Provider:Yfn Tejada MD Location:[facility] Appointment Type:OB Follow Up Appointment Date:05/30/2024 04:00:00 PM Scheduled Provider:Yfn Tejada MD Location:[facility] Appointment Type:OB Follow Up Future Scheduled [...] bone 2006 Completed Adenoidectomy 2002 Completed Results Laboratory List Name Date CBC w/ Diff 03/05/24 Glucose 1Hr 50 gm OB 03/05/24 Automated Diff 03/05/24 Most recent to oldest [Reference Range]: 1 WBC [4.8-10.8 K/mcL] 8.9 K/mcL (03/05/24 8:12 AM) RBC [4.20-5.40 Million/mcL] 3.63 Million /mcL *LOW* (03/05/24 8:12 AM) Neutro Auto [42.2-75.2 %] 76.9 % *HI* (03/05/24 8:12 AM) Lymph Auto [20.5-51.1 %] 16.5 % *LOW* (03/05/24 8:12 AM) [place] Auto [1.7-9.3 %] 5.6 % (03/05/24 8:12 AM) Basophil Auto [0.0-0.8 %] 0.3 % (03/05/24 8:12 AM) Baso Absolute [0.0-0.2 K/mcL] 0.0 K/mcL (03/05/24 8:12 AM) MCV [81.0-99.0 fL] 92.6 fL (03/05/24 8:12 AM) MCHC [32.0-37.0 g/dL] 35.5 g/dL (03/05/24 8:12 AM) Lymph Absolute [1.2-3.4 K/mcL] 1.5 K/mcL (03/05/24 8:12 AM) Hct [37.0-47.0 %] 33.6 % *LOW* (03/05/24 8:12 AM) [place] Absolute [0.1-0.6 K/mcL] 0.5 K/mcL (03/05/24 8:12 AM) MCH [27.0-31.0 pg] 32.9 pg *HI* (03/05/24 8:12 AM) Neutro Absolute [1.4-6.5 K/mcL] 6.9 K/mc L *HI* (03/05/24 8:12 AM) Hgb [12.0-16.0 g/dL] 11.9 g/dL *LOW* (03/05/24 8:12 AM) MPV [7.4-10.4 fL] 9.4 fL (03/05/24 8:12 AM) Platelets [130-400 K/mcL] 109 K/mcL *LOW* (03/05/24 8:12 AM) Eos Absolute [0.0-0.2 K/mcL] 0.1 K/mcL (03/05/24 8:12 AM) RDW-CV [11.5-14.5 %] 16.5 % *HI* (03/05/24 8:12 AM) Gluc 1hr OB 151 *NA* (03/05/24 8:12 AM) Eos, Auto [0.00-3.00 %] 0.70 % (03/05/24 8:12 AM) Social History Social History Type Response Smoking Status Smoking tobacco use: Never tobacco user;Never entered on: 11/22/23 Sex Patient Care team information Care Team Personnel Name: BEA ALONZO APRN, V Position: No Access Member Role: Primary Care Physician Address: Address: [address] Care Team Related Persons Name: FAHAD TAVERAS Address: Home
--- OUTSIDE RECORDS SUMMARY | 2024-10-17 21:10 | XMS_ITS | Continuity of Care Document ---
Author Organization [facility] Address [address] [place] [address] Care Team Providers Care Evaporator Operator Name Role Phone BEA ALONZO APRN, V Primary Care Physician ( [phone] Encounter [facility] NBR [id number] Date(s): 04/04/24 - 04/04/24 [facility] [address] [place] [address]- Encounter Diagnosis Encounter for supervision of normal in multigravida in third trimester (Discharge Diagnosis) - 04/04/24 Abnormal glucose tolerance test(Discharge Diagnosis) - 04/04/24 Abnormal glucose complicating (Final) - 32 weeks gestation of (Final) - Discharge Disposition: Home or Self Care Attending Physician: Yfn Tejada MD Allergies, Adverse Reactions, Alerts No Known Medication Allergies Assessment and Plan Extracted from: Title:OB Extended Office Visit Author:Yfn logan MD Date:04/04/24 1.??Encounter for supervisio n of normal in multigravida in third trimester??Z34.83 FBS 77-88 ??2hr 74-116 growth 88% - Will repeat growth us ~36-37 weeks.? 2.??Abnormal glucose tolerance test??R73.09 Ordered: US OB Follow Up, 04/04/24, Routine, Reason: GDM /Growth, Transport Mode: Ambulatory, Abnormal glucose tolerance test ?? Future Appointments Appointment Date:04/16/2024 04:00:00 PM Scheduled Provider:Yfn Tejada MD Location:[facility] Appointment Type:OB Follow Up Appointment Date:05/02/2024 04:15:00 PM Scheduled Provider:Rod Samuel MD Location:[facility] Appointment Type:OB Follow Up Appointment Date:05/09/2024 04:15:00 PM Scheduled Provider:Shalini Edward APRN Location:[facility] Appointment Type:OB Follow Up Appointment Date:05/16/2024 09:15:00 AM Scheduled Provider:Rod Samuel MD Location:[facility] Appointment Type:OB Follow Up Appointment Date:05/23/2024 08:45:00 AM Scheduled Provider:Yfn Tejada MD Location:[facility] Appointment Type:OB Follow Up Appointment Date:05/30/2024 04:00:00 PM Scheduled Provider:Yfn Tejada MD Location:[facility] Appointment Type:OB Follow Up [...] instructions, # 1 EA, 1 Refill(s), Pharmacy: [id number] Start Date: 03/08/24 Status: Ordered freestyle freedom lite strips freestyle freedom lite strips, 4x daily testing. box of 100, Supply, See instructions, # 1 EA, 1 Refill(s), Pharmacy: [id number] Start Date: 03/08/24 Status: Ordered magnesium glycinate [...] [Reference Range]: 1 Blood Pressure [90-140/60-90 mmHg] 102/6 6mmHg (04/04/24 4:02 PM) Mean Arterial Pressure, Cuff [65-140 mmH g] 78 mmHg (04/04/24 4:02 PM) Weight 64.2 kg (04/04/24 4:02 PM) Weight Measured (lbs) 141.537 lb (04/04/24 4:02 PM) Weight Dosing 64.200 kg (04/04/24 4:02 PM) [place] Body Weight Calculated 57 kg (04/04/24 4:02 PM) Height 165.1 cm (04/04/24 4:02 PM) Height/Length Measured (inches) 65 inch (04/04/24 4:02 PM) BSA Measured 1.72 m2 (04/04/24 4:02 PM) Body Mass Index 23.55 kg/m2 (04/04/24 4:02 PM) Social History Social History Type Response Smoking Status Smoking tobacco use: Never tobacco user;Never entered on: 11/22/23 Sex Physician Outpatient Note * Yfn Tejada MD: PERFORM Event Display: Office Clinic Note Physician Authored Date: [id number] LOC TAVERAS :1995 Age:28 years Sex:Female Visit Date:04/04/2024 Primary Care Physician: BEA ALONZO APRN, V Chief Complaint 32 weeks 3 days. Checking BS, fasting 77-88. 2hr PP 74-116. No other concerns. Visit Vital Signs/Measurements Systolic Blood Naiktozt527 mmHg Diastolic Blood Bjcovziu10 mmHg Bioopd87.2 kg Physical Exam Vitals & Measurements BP:??102/66?? HT:??165.1??cm?? WT:??64.2??kg?? BMI:??23.55?? BSA:??1.72?? Assessment/Plan 1.??Encounter for supervision of normal in multigravida in third trimester??Z34.83 FBS 77-88 ??2hr 74-116 growth 88% - Will repeat growth us ~36-37 weeks.? 2.??Abnormal glucose tolerance test??R73.09 Ordered: US OB Follow Up, 04/04/24, Routine, Reason: GDM /Growth, Transport Mode: Ambulatory, Abnormal glucose tolerance test ?? Future Orders US OB Follow Up, 04/04/24, Routine, Reason: GDM /Growth, Transport Mode: Ambulatory, Abnormal glucose tolerance test LMP/EGA/BRAD No qualifying data available. Gestational Age (EGA) and BRAD? * Note: EGA calculated as of 04/04/2024 ?? BRAD:??05/27/2024?EGA*:??32 weeks 3 days ?Type:??Authoritative?Method Date:??08/21/2023 ?Method:??Last Menstrual Period??(08/21/2023) ?Confirmation:??Confirmed ?Description:??-- ?Comments:??-- ?Entered by:??Cheyanne Shields on 11/22/2023? Other BRAD Calculations for this : ?Method:??Ultrasound ?Method Date:??03/22/2024 ?BRAD:??05/13/2024 ?EGA (At Entry):??32 [...] Risk Factors (Current ) Unique Risk Factors:?Other: platelets 109, Other: Hx of diet controlled GDM ?? Ethnic Screening Self, Baby's father: ? Genetic Disorders Screening Baby's Mother - Negative, Baby's Father - Negative:?? 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 Living [...] Performed: 11/22/23 Rubella,Transcribed: Immune Electronically Signed on 04/04/2024 16:29 EDT Yfn Tejada MD Patient Care team information Care Team Personnel Name: BEA ALONZO APRN, V Position: No Access Member Role: Primary Care Physician Address: Address: [place] [address]- Care Team Related Persons Name: FAHAD TAVERAS Address: Home
--- OUTSIDE RECORDS SUMMARY | 2024-10-17 21:10 | XMS_ITS | Continuity of Care Document ---
Author Organization [facility] Address [address] [place] [address] Care Team Providers Care Dip Filler Name Role Phone BEA ALONZO APRN, V Primary Care Physician Encounter [facility] [place] [id number] Date(s): 05/02/24 - 05/02/24 [facility] [address] [place] [address]- Encounter Diagnosis Encounter for supervision of normal in multigravida in third trimester (Discharge Diagnosis) - 05/02/24 Diabetes, gestational(Discharge Diagnosis) - 05/02/24 Discharge Disposition: Home or Self Care Attending Physician: Rod Samuel MD Allergies, Adverse Reactions, Alerts No Known Medication Allergies Assessment and Plan Extracted from: Title:OB Extended Office Visit Author:Rod barr MD Date:05/02/24 1.??Encounter for supervisio n of normal in multigravida in third trimester??Z34.83 ??Doing well.?? GBS NV. 2.??Diabetes, gestational??O24.419 Future Appointments Appointment Date:05/09/2024 04:15:00 PM Scheduled Provider:Shalini Edward APRN Location:[facility] Appointment Type:OB Follow Up Appointment Date:05/16/2024 09:15:00 AM Scheduled Provider:Rod Samuel MD Location:[facility] Appointment Type:OB Follow Up Appointment Date:05/23/2024 08:45:00 AM Scheduled Provider:Yfn Tejada MD Location:[facility] Appointment Type:OB Follow Up Appointment Date:05/30/2024 04:00:00 PM Scheduled Provider:Yfn Tejada MD Location:[facility] Appointment Type:OB Follow Up Future Scheduled Tests Laboratory* .GTT 3 HR OB 100gm 03/05/24 * .GTT 2 HR OB 100gm 03/05/24 * .GTT 1 HR OB 100gm 03/05/24 * .GTT Fasting OB 03/05/24 Immunizations Given and Recorded Vaccine Date Status Refusal Reason tetanus/diphth/pertuss (Tdap) adult/adol 03/05/24 Given Medications citalopram 10 mg oral tablet 10 mg = 1 tab, Oral, Daily, # 90 tab, 4 Refill(s), Pharmacy: [facility], 165.1, cm, 05/02/24 16:11:00 EDT, [...] instructions, # 1 EA, 1 Refill(s), Pharmacy: [facility] Start Date: 03/08/24 Status: Ordered freestyle freedom lite strips freestyle freedom lite strips, 4x daily testing. box of 100, Supply, See instructions, # 1 EA, 1 Refill(s), Pharmacy: [facility] Start Date: 03/08/24 Status: Ordered magnesium glycinate [...] oldest [Reference Range]: 1 Protein Urine Dipstick Negative (05/02/24 4:11 PM) Glucose Urine Dipstick Negative (05/02/24 4:11 PM) Urine Color Urine Dipstick Yellow (05/02/24 4:11 PM) Urine Appearance Urine Dipstick Clear (05/02/24 4:11 PM) Vital Signs Most recent to oldest [Reference Range]: 1 Blood Pressure [90-140/60-90 mmHg] 124/7 6mmHg (05/02/24 4:11 PM) Mean Arterial Pressure, Cuff [65-140 mmH g] 92 mmHg (05/02/24 4:11 PM) Weight 64.2 kg (05/02/24 4:11 PM) Weight Measured (lbs) 141.537 lb (05/02/24 4:11 PM) Weight Dosing 64.200 kg (05/02/24 4:11 PM) [place] Body Weight Calculated 57 kg (05/02/24 4:11 PM) Height 165.1 cm (05/02/24 4:11 PM) Height/Length Measured (inches) 65 inch (05/02/24 4:11 PM) BSA Measured 1.72 m2 (05/02/24 4:11 PM) Body Mass Index 23.55 kg/m2 (05/02/24 4:11 PM) Social History Social History Type Response Smoking Status Smoking tobacco use: Never tobacco user;Never entered on: 11/22/23 Sex Physician Outpatient Note * Rod Samuel MD: PERFORM Event Display: Office Clinic Note Physician Authored Date: [id number] LOC TAVERAS :1995 Age:28 years Sex:Female Visit Date:05/02/2024 Primary Care Physician: BEA ALONZO APRN, V Chief Complaint OB follow-up History of Present Illness Doing well.?? Baby is active.?? No bleeding or LOF.? Visit Baby A Presentation:Vertex Activity:Present per patient FHR Baseline:140 Vital Signs/Measurements Systolic Blood Vabdwsep216 mmHg Diastolic Blood Mnigkzld28 mmHg Hfrwlg19.2 kg Urine POC Protein Urine DipstickNegative Glucose Urine DipstickNegative Fundal Height Fundal Lwscll07 cm Additional Information Antepartum CommentUS reviewed. Unless FH's change or there are other indications- no further US's needed. Next Appointment1 weeks Physical Exam Vitals & Measurements BP:??124/76?? HT:??165.1??cm?? WT:??64.2??kg?? BMI:??23.55?? BSA:??1.72?? Assessment/Plan 1.??Encounter for supervision of normal in multigravida in third trimester??Z34.83 ??Doing well.?? GBS NV. 2.??Diabetes, gestational??O24.419 LMP/EGA/BRAD No qualifying data available. Gestational Age (EGA) and BRAD? * Note: EGA calculated as of 05/02/2024 ?? BRAD:??05/27/2024?EGA*:??36 weeks 3 days ?Type:??Authoritative?Method Date:??08/21/2023 ?Method:??Last Menstrual [...] Factors (Current ) Unique Risk Factors:?Other: US 04/30 - Growth 40th percentile., Other: Growth 88% - Repeat growthUS 36-37 weeks., Other: platelets 109, Other: Hx of diet controlled GDM ?? Ethnic Screening Self, Baby's father: ? Genetic Disorders Screening Baby's Mother - Negative, Baby's Father - Negative:?? Defect, Cystic Fibrosis, Down Syndrome, Hemophilia, Mcleod's Chorea, *Mental Retardation, Muscular Dystrophy, Neural Tube, Sickle Cell Disease, Richard Sachs, Thalassemia, Madhav Disease, Congenital Heart Defect, Maternal Metabolic Disorder, Recurrent Preg Loss/Stillbirth ?? 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 [...] Performed: 11/22/23 Rubella,Transcribed: Immune Electronically Signed on 05/02/2024 16:46 EDT Rod Samuel MD Patient Care team information Care Team Personnel Name: BEA ALONZO APRN, V Position: No Access Member Role: Primary Care Physician Address: Address: [address] Care Team Related Persons Name: FAHAD TAVERAS
--- OUTSIDE RECORDS SUMMARY | 2024-10-17 21:10 | XMS_ITS | Continuity of Care Document ---
Author Organization [facility] Address [address] [place] [address] Care Team Providers Care Line Puller Name Role Phone BEA ALONZO APRN, V Primary Care Physician Encounter [facility] NBR [id number] Date(s): 03/22/24 - 03/22/24 [facility] [address] [place] [address]- [place] Encounter Diagnosis Encounter for supervision of normal in multigravida in third trimester (Discharge Diagnosis) - 03/22/24 Abnormal glucose tolerance test(Discharge Diagnosis) - 03/22/24 Discharge Disposition: Home or Self Care Attending Physician: Kelvin Martinez MD Allergies, Adverse Reactions, Alerts No Known Medication Allergies Assessment and Plan Extracted from: Title:OB Extended Office Visit Author:Kelvin martinez MD Date:03/22/24 1.??Encounter for supervisio n of normal in multigravida in third trimester??Z34.83 2.??Abnormal glucose tolerance test??R73.09 Reviewed signs of labor and when to call. ??We reviewed her??blood sugar??results. ??Fastings and 2-hour PP's all within normal limits.?? She is doing well with her diet.?? We reviewed preliminary report of today's??Follow-up US for Growth. ??Breech presentation,??EFW 1912g (4# 3oz), 88th percentile, CHANA 23 cm. Future Appointments Appointment Date:04/04/2024 04:00:00 PM Scheduled Provider:Yfn Tejada MD Location:[facility] Appointment Type:OB Follow Up Appointment Date:04/16/2024 04:00:00 PM Scheduled Provider:Yfn Tejada MD Location:[facility] Appointment Type:OB Follow Up Appointment Date:05/02/2024 04:15:00 PM Scheduled Provider:Rod Samuel MD Location:[facility] Appointment Type:OB Follow Up Appointment Date:05/09/2024 04:15:00 PM Scheduled Provider:Shalini Edward APRN Location:[facility] Appointment Type:OB Follow Up Appointment Date:05/16/2024 09:15:00 AM Scheduled Provider:Rod Samuel MD Location:[facility] Appointment Type:OB Follow Up Appointment Date:05/23/2024 08:45:00 AM Scheduled Provider:Yfn Tejada MD Location:[facility] Appointment Type:OB Follow Up Appointment Date:05/30/2024 04:00:00 PM Scheduled Provider:Yfn Tejada MD Location:[facility] Appointment Type:OB Follow Up Future Scheduled Tests [...] instructions, # 1 EA, 1 Refill(s), Pharmacy: [id number] Start Date: 03/08/24 Status: Ordered freestyle freedom lite strips freestyle freedom lite strips, 4x daily testing. box of 100, Supply, See instructions, # 1 EA, 1 Refill(s), Pharmacy: [id number] Start Date: 03/08/24 Status: Ordered magnesium glycinate [...] [Reference Range]: 1 Protein Urine Dipstick Negative (03/22/24 4:04 PM) Glucose Urine Dipstick Negative (03/22/24 4:04 PM) Urine Color Urine Dipstick Yellow (03/22/24 4:04 PM) Urine Appearance Urine Dipstick Clear (03/22/24 4:04 PM) Vital Signs Most recent to oldest [Reference Range]: 1 Blood Pressure [90-140/60-90 mmHg] 112/7 2mmHg (03/22/24 4:04 PM) Mean Arterial Pressure, Cuff [65-140 mmH g] 85 mmHg (03/22/24 4:04 PM) Weight 64.1 kg (03/22/24 4:04 PM) Weight Measured (lbs) 141.316 lb (03/22/24 4:04 PM) Weight Dosing 64.100 kg (03/22/24 4:04 PM) [place] Body Weight Calculated 57 kg (03/22/24 4:04 PM) Height 165.1 cm (03/22/24 4:04 PM) Height/Length Measured (inches) 65 inch (03/22/24 4:04 PM) BSA Measured 1.71 m2 (03/22/24 4:04 PM) Body Mass Index 23.52 kg/m2 (03/22/24 4:04 PM) Social History Social History Type Response Smoking Status Smoking tobacco use: Never tobacco user;Never entered on: 11/22/23 Sex Note * Paola Bergeron: PERFORM Event Display: OB Note Authored Date: [id number] Transcribed Labs Entered On: 03/18/2024 16:29 EDT Performed On: 03/18/2024 16:28 EDT by Paola Bergeron Transcribed Labs Blood Type, Transcribed : O positive Rubella,Transcribed : Immune Rubella Date Performed : 11/22/2023 EST Hepatitis B, Transcribed : Negative Hepatitis B Date Performed : 11/22/2023 EST Hepatitis C, Transcribed : Negative Hepatitis C Date Performed : 11/22/2023 EST HIV Antibodies, Transcribed : Negative HIV Date Performed : 11/22/2023 EST RPR, Transcribed : Negative RPR Date Performed : 11/22/2023 EST Gonorrhea Date Performed : 11/22/2023 EST Chlamydia Date Performed : 11/22/2023 EST Gonorrhea, Transcribed : Negative Chlamydia, Transcribed : Negative ABS, Transcribed : Negative ABS Date Performed : 11/22/2023 EST 1 Hour Glucose Date Performed : 03/05/2024 EDT 1 Hour Glucose Result : 151 mg/dL Fasting Glucose of 3 Result : 90 mg/dL 3 Hour of 3 Glucose Result : 148 mg/dL 3 Hour Glucose Date Performed : 03/07/2024 EDT 1 Hour of 3 Glucose Result : 210 mg/dL 2 Hour of 3 Glucose Result : 206 mg/dL Other Transcribed Labs : urine culture done 01/03/2024 Genetic Testing, Transcribed : No Genetic Testing, Results Text : patient declined Paola Bergeron - 03/18/2024 16:28 EDT Electronically Signed on 03/18/2024 16:28 EDT Paola Bergeron * Paola Bergeron: PERFORM Event Display: OB Note Authored Date: [id number] Transcribed Labs Entered On: 03/18/2024 16:26 EDT Performed On: 03/18/2024 16:25 EDT by Paola Bergeron Transcribed Labs Blood Type, Transcribed : O positive Rubella,Transcribed : Immune Rubella Date Performed : 11/22/2023 EST Hepatitis B, Transcribed : Negative Hepatitis B Date Performed : 11/22/2023 EST Hepatitis C, Transcribed : Negative Hepatitis C Date Performed : 11/22/2023 EST HIV Antibodies, Transcribed : Negative HIV Date Performed : 11/22/2023 EST RPR, Transcribed : Negative RPR Date Performed : 11/22/2023 EST Gonorrhea Date Performed : 11/22/2023 EST Chlamydia Date Performed : 11/22/2023 EST Gonorrhea, Transcribed : Negative Chlamydia, Transcribed : Negative ABS, Transcribed : Negative ABS Date Performed : 11/22/2023 EST 1 Hour Glucose Date Performed : 03/05/2024 EDT 1 Hour Glucose Result : 151 mg/dL Fasting Glucose of 3 Result : 90 mg/dL 3 Hour of 3 Glucose Result : 148 mg/dL 3 Hour Glucose Date Performed : 03/07/2024 EDT 1 Hour of 3 Glucose Result : 210 mg/dL 2 Hour of 3 Glucose Result : 206 mg/dL Other Transcribed Labs : urine culture done 01/03/2024 Paola Bergeron - 03/18/2024 16:25 EDT Electronically Signed on 03/18/2024 16:25 EDT Paola Bergeron Physician Outpatient Note * Kelvin Martinez MD: PERFORM Event Display: Office Clinic Note Physician Authored Date: [id number] LOC TAVERAS :1995 Age:28 years Sex:Female Visit Date:03/22/2024 Primary Care Physician: BEA ALONZO APRN, V Chief Complaint OB follow appointment, 30.4 weeks, U/S @ 3:00pm, was told baby was in breech position History of Present Illness Active movements.?? She??has frequent Uziel Nascimento contractions??during the day.?? She??is checking her blood sugars 4 times daily and brought??a list of results with her. Visit Baby A Presentation:Breech Activity:Present per patient FHR Baseline:135 Vital Signs/Measurements Systolic Blood Dkrxdcor070 mmHg Diastolic Blood Jnolsacd53 mmHg Bdjafb26.1 kg Edema EdemaNone Urine POC Protein Urine DipstickNegative Glucose Urine DipstickNegative Fundal Height Fundal Oxrris31 cm Labor Labor Signs/SymptomsAbdominal pain Additional Information Next Appointment2 weeks Physical Exam Vitals & Measurements BP:??112/72?? HT:??165.1??cm?? WT:??64.1??kg?? BMI:??23.52?? BSA:??1.71?? Assessment/Plan 1.??Encounter for supervision of normal in multigravida in third trimester??Z34.83 2.??Abnormal glucose tolerance test??R73.09 Reviewed signs of labor and when to call. ??We reviewed her??blood sugar??results. ??Fastings and 2-hour PP's all within normal limits.?? She is doing well with her diet.?? We reviewed preliminary report of today's??Follow-up US for Growth. ??Breech presentation,??EFW 1912g (4# 3oz), 88th percentile, CHANA 23 cm. LMP/EGA/BRAD No qualifying data available. Gestational Age (EGA) and BRAD? * Note: EGA calculated as of 03/22/2024 ?? BRAD:??05/27/2024?EGA*:??30 weeks 4 days ?Type:??Authoritative?Method Date:??08/21/2023 ?Method:??Last Menstrual Period??(08/21/2023) ?Confirmation:??Confirmed ?Description:??-- ?Comments:??-- ?Entered by:??Cheyanne Shields on 11/22/2023? Other BRAD Calculations for this : ?Method:??Ultrasound ?Method Date:??01/03/2024 ?BRAD:??05/26/2024 ?EGA (At Entry):??19 weeks 3 days ?Type:??Non-Authoritative ?Comments:??normal appearing anatomy ?Entered by:??Shalini Edward APRN on 01/03/2024 OB History History?(1,0,0,1)? # 1 ?Baby 1 ?Outcome Date:??04/06/2021?Outcome or Result:??Vaginal ?Gest Age:??40 weeks 2 days ? Outcome:??Live ? Sex:??Female?Wt:?3629 g ?Child's Name:??Jerica ?Hospital:??[facility] ?Comment:??gestational diabetes, diet controlled Risk Screening Risk [...] Performed: 11/22/23 Rubella,Transcribed: Immune Electronically Signed on 03/22/2024 16:40 EDT Kelvin Martinez MD Patient Care team information Care Team Personnel Name: BEA ALONZO APRN, V Position: No Access Member Role: Primary Care Physician Address: Address: [place] [address]- Care Team Related Persons Name: FAHAD TAVERAS
--- OUTSIDE RECORDS SUMMARY | 2024-10-17 21:10 | XMS_ITS | Continuity of Care Document ---
Author Organization [facility] Ambulatory [facility] Address [address] [place] [address] Care Team Providers Care Title I Teacher Name Role Phone BEA ALONZO APRN, V Primary Care Physician Encounter [facility] NBR [id number] Date(s): 01/22/24 - 01/22/24 [facility] [address] [place], [place] [id number]- us Discharge Disposition: Home Allergies, Adverse Reactions, Alerts No Known Medication Allergies Assessment and Plan Future Appointments Appointment Date:02/02/2024 09:15:00 AM Scheduled Provider:Yfn Tejada MD Location:[facility] Appointment Type:OB Follow Up Medications escitalopram 10 [...] Member Role: Primary Care Physician Address: Address: [address] Care Team Related Persons Name: FAHAD TAVERAS
--- OUTSIDE RECORDS SUMMARY | 2024-10-17 21:10 | XMS_ITS | Continuity of Care Document ---
Author Organization [facility] Ambulatory Clinics Address [address] [place] [address] Care Team Providers Care Commercial Drone Software Developer Name Role Phone BEA ALONZO APRN, V Primary Care Physician ( [phone] Encounter [facility] [place] [id number] Date(s): 05/09/24 - 05/09/24 [facility] Ambulatory [facility] [address] [place] [address]- Encounter Diagnosis Encounter for supervision of normal in multigravida in third trimester (Discharge Diagnosis) - 05/09/24 Encounter for supervision of other normal , third trimester(Final) - 37 weeks gestation of (Final) - Discharge Disposition: Home or Self Care Attending Physician: Shalini Edward APRN Allergies, Adverse Reactions, Alerts No Known Medication Allergies Assessment and Plan Extracted from: Title:OB Extended Office Visit Author:Shalini giron APRN Date:05/09/24 1.??Encounter for supervisio n of normal in multigravida in third trimester??Z34.83 ??GBS today. Cervix anterior/soft/closed. +FM. No lof/bleeding/ctx.??Blood sugars all within normal range.??She??asked about??weight plateau- feels as though she is eating well and keeping BS in range. Baby seems to be growing appropriately. Ordered: Group B Strep (GeneXpert), Swab, Routine Collect, 05/09/24 16:28:00 EDT, Once, Nurse collect, Print Label, Encounter for supervision of normal in multigravida in third trimester ?? Future Appointments Appointment Date:05/16/2024 09:15:00 AM Scheduled Provider:Rod Samuel MD Location:[facility] Appointment Type:OB Follow Up Appointment Date:05/23/2024 08:45:00 AM Scheduled Provider:Yfn Tejada MD Location:[facility] Appointment Type:OB Follow Up Appointment Date:05/30/2024 04:00:00 PM Scheduled Provider:Yfn Tejada MD Location:[facility] Appointment Type:OB Follow Up Future [...] Daily, # 90 tab, 4 Refill(s), Pharmacy: [facility], 165.1, cm, 05/02/24 16:11:00 EDT, Height, 64.2, [...] instructions, # 1 EA, 1 Refill(s), Pharmacy: [facility] Start Date: 03/08/24 Status: Ordered freestyle freedom lite strips freestyle freedom lite strips, 4x daily testing. box of 100, Supply, See instructions, # 1 EA, 1 Refill(s), Pharmacy: [facility] Start Date: 03/08/24 Status: [...] [Reference Range]: 1 Protein Urine Dipstick Trace (05/09/24 4:13 PM) Glucose Urine Dipstick Negative (05/09/24 4:13 PM) Urine Color Urine Dipstick Dark yellow (05/09/24 4:13 PM) Urine Appearance Urine Dipstick Clear (05/09/24 4:13 PM) Vital Signs Most recent to oldest [Reference Range]: 1 Blood Pressure [90-140/60-90 mmHg] 112/7 0mmHg (05/09/24 4:13 PM) Mean Arterial Pressure, Cuff [65-140 mmH g] 84 mmHg (05/09/24 4:13 PM) Weight 64 kg (05/09/24 4:13 PM) Weight Measured (lbs) 141.096 lb (05/09/24 4:13 PM) Weight Dosing 64.000 kg (05/09/24 4:13 PM) [place] Body Weight Calculated 57 kg (05/09/24 4:13 PM) Height 165.1 cm (05/09/24 4:13 PM) Height/Length Measured (inches) 65 inch (05/09/24 4:13 PM) BSA Measured 1.71 m2 (05/09/24 4:13 PM) Body Mass Index 23.48 kg/m2 (05/09/24 4:13 PM) Social History Social History Type Response Smoking Status Smoking tobacco use: Never tobacco user;Never entered on: 11/22/23 Sex Physician Outpatient Note * Shalini Edward APRN: PERFORM Event Display: Office Clinic Note Physician Authored Date: [id number] LOC TAVERAS :1995 Age:28 years Sex:Female Visit Date:05/09/2024 Primary Care Physician: BEA ALONZO APRN, V Chief Complaint OB follow up GBS today History of Present Illness OB f/u Visit Baby A Presentation:Vertex Activity:Present per patient FHR Baseline:130 Vital Signs/Measurements Systolic Blood Hwsedfbs836 mmHg Diastolic Blood Wacxsftm49 mmHg Zczoko63 kg Edema EdemaNone Urine POC Protein Urine DipstickTrace Glucose Urine DipstickNegative Fundal Height Fundal Tcapyk88 cm Labor Labor Signs/SymptomsNone Additional Information Antepartum CommentGBS today Next Appointment1 weeks Physical Exam Vitals & Measurements BP:??112/70?? HT:??165.1??cm?? WT:??64??kg?? BMI:??23.48?? BSA:??1.71?? Assessment/Plan 1.??Encounter for supervision of normal in multigravida in third trimester??Z34.83 ??GBS today. Cervix anterior/soft/closed. +FM. No lof/bleeding/ctx.??Blood sugars all within normalrange.??She??asked about??weight plateau- feels as though she is eating well and keeping BS in range. Baby seems to be growing appropriately. Ordered: Group B Strep (GeneXpert), Swab, Routine Collect, 05/09/24 16:28:00 EDT, Once, Nurse collect, PrintLabel, Encounter for supervision of normal in multigravida in third trimester ?? Follow Up Instructions 1 week LMP/EGA/BRAD No qualifying data available. Gestational Age (EGA) and BRAD? * Note: EGA calculated as of 05/09/2024 ?? BRAD:??05/27/2024?EGA*:??37 weeks 3 days ?Type:??Authoritative?Method Date:??08/21/2023 ?Method:??Last Menstrual [...] days ?Type:??Non-Authoritative ?Comments:??normal appearing anatomy ?Entered by:??Shalini Edward, LABORATORY MANAGER on 01/03/2024 OB History History?(1,0,0,1)? # 1 ?Baby 1 ?Outcome Date:??04/06/2021?Outcome or Result:??Vaginal ?Gest Age:??40 weeks 2 days ? Outcome:??Live ? Sex:??Female?Wt:?3629 g ?Child's Name:??Jerica ?Hospital:??[facility] ?Comment:??gestational diabetes, diet controlled Risk Screening Risk Factors (Current ) Unique Risk Factors:?Other: US 04/30 - Growth 40th percentile., Other: Growth 88% - Repeat growthUS 36-37 weeks., Other: platelets 109, Other: Hx of diet controlled GDM ?? Ethnic Screening Self, Baby's father: ? Genetic Disorders Screening Baby's Mother - Negative, Baby's Father - Negative:?? 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 [...] Performed: 11/22/23 Rubella,Transcribed: Immune Electronically Signed on 05/09/2024 16:39 EDT Shalini Edward APRN Patient Care team information Care Team Personnel Name: BEA ALONZO APRN, V Position: No Access Member Role: Primary Care Physician Address: Address: [address] Care Team Related Persons Name: FAHAD TAVERAS
--- OUTSIDE RECORDS SUMMARY | 2024-10-17 21:11 | XMS_ITS | Continuity of Care Document ---
Author Organization [facility] Ambulatory Clinics Address [address] [place] [address] Care Team Providers Care Chronometer Repairer Name Role Phone BEA ALONZO APRN, V Primary Care Physician Encounter [facility] NBR [id number] Date(s): 03/26/24 - 03/26/24 [facility] Ambulatory Clinics [address] [place], [place] [id number]- [place] Discharge Disposition: Home Allergies, Adverse Reactions, Alerts No Known Medication Allergies Assessment and Plan Future Appointments Appointment Date:04/04/2024 04:00:00 PM Scheduled Provider:Yfn Tejada MD Location:[facility] Appointment Type:OB Follow Up Appointment Date:04/16/2024 04:00:00 PM Scheduled Provider:fYn Tejada MD Location:[facility] Appointment Type:OB Follow Up Appointment Date:05/02/2024 04:15:00 PM Scheduled Provider:Rod Samuel MD Location:[facility] Appointment Type:OB Follow Up Appointment Date:05/09/2024 04:15:00 PM Scheduled Provider:Shalini Edward APRN Location:[facility] Appointment Type:OB Follow Up Appointment Date:05/16/2024 09:15:00 AM Scheduled Provider:Rod Samuel MD Location:[facility] Appointment Type:OB Follow Up Appointment Date:05/23/2024 08:45:00 AM Scheduled Provider:Yfn Tejada MD Location:[facility] Appointment Type:OB Follow Up Appointment Date:05/30/2024 04:00:00 PM Scheduled Provider:Yfn Tejada MD Location:[facility] Appointment Type:OB Follow Up Future [...] instructions, # 1 EA, 1 Refill(s), Pharmacy: [id number] Start Date: 03/08/24 Status: Ordered freestyle freedom lite strips freestyle freedom lite strips, 4x daily testing. box of 100, Supply, See instructions, # 1 EA, 1 Refill(s), Pharmacy: [id number] Start Date: 03/08/24 Status: [...] Member Role: Primary Care Physician Address: Address: [address] Care Team Related Persons Name: FAHAD TAVERAS
--- OUTSIDE RECORDS SUMMARY | 2024-10-17 21:11 | XMS_ITS | Encounter Summary ---
Author Organization [facility] Address [address] [place] [address] Care Team Providers Care Trade Manager Name Role Phone Unavailable Primary Care Provider Unavailabl e Encounter Details Date Type Department Care Team (Late st Contact Info) Description 08/05/2021 Lab Requisition [facility] Pathology & Laboratory Medicine - [facility] [address] [place] [address] Outr Resulting Lab, Provider Social History Tobacco Use Types Packs/Day Years Used Date Smoking Tobacco: Never Assessed Interpersonal Safety Answer Date Record ed Physically Hurt Never 09/08/2020 Verbally Threaten Not on file 09/08/2020 Comments Unknown Sex and Gender Information Value Date Recorded Sex Assigned at Not on file Legal Sex Female 12:02 EDT Gender Identity Not on file Sexual Orientation Not on file documented as of this encounter Plan of Treatment Not on file documented as of this encounter Procedures Procedure Name Priority Date/Time Associated Diagnosis Comments ZZCOVID-19 TEST [facility] PCR Today 08/04/2021 16:20 EDT COVID-19 TESTING Routine 08/04/2021 16:2 0 EDT documented in this encounter Results * COVID-19 TEST [facility] PCR (08/04/2021 16:20 EDT) Swab ENTIRE NASOPHARYNX / Unknown 08/04/2021 16:20 EDT 08/05/2021 16:15 EDT us Provider Outr Resulting Lab MICROBIOLOGY - GENER AL ORDERABLES Final Result [facility] [address] [place] [address] * COVID-19 TESTING (08/04/2021 16:20 EDT) COVID-19 rt-PCR Result Negative Negative 08/06/2021 14:44 EDT [facility] Comment: This test has not been FDA cleared or approved. This test has been authorized by FDA under an EUA for use by authorized laboratories. This test has been authorized only for detection of nucleic acid from 2019-nCoV, not for any other viruses or pathogens. This test is only authorized for the duration of the declaration that circumstances exist justifying the authorization of emergency use of in vitro diagnostic tests for detection and/or diagnosis of 2019-nCoV under section 564(b)(1) of Act, 21 U.S.C ?? 360bbb-3(b) (1), unless the authorization is terminated or revoked sooner. Negative results do not preclude 2019-nCoV infection and should not be used as the sole basis for treatment or other patient management decisions. Negative results must be combined with clinical observations, patient history, and epidemiological information. This test was developed and its performance characteristics determined by [facility]. It has not been cleared or approved by the US Food and Drug Administration. FDA does not require this test to go through premarket FDA review. This test is used for clinical purposes. It should not be regarded as investigational or for research. This laboratory is certified under the Clinical Laboratory Improvement Amendments (CLIA) as qualified to perform high complexity clinical laboratory testing. This test is based on the [facility] COVID-19 Emergency Use Authorization (EUA) assay, with minor modification as defined by the FDA Performed on the Applied Superplayero 7 Pro RT-PCR System. Performing Lab [facility] 08/06/2021 14:44 EDT [facility] Swab 08/04/2021 16:2 0 EDT 08/05/2021 16:15 EDT us Provider Outr Resulting Lab MICROBIOLOGY - GENER AL ORDERABLES Final Result [facility] [address] [place] [address] documented in this encounter Visit Diagnoses Not on filedocumented in this encounter
--- OUTSIDE RECORDS SUMMARY | 2024-10-17 21:11 | XMS_ITS | Continuity of Care Document ---
Author Organization [facility] Address [address] [place] [id number] Care Team Providers Care Solar Thermal Technician Name Role Phone BEA ALONZO APRN, V Primary Care Physician ( [phone] [id number] Date(s): 04/30/24 - 04/30/[address] [id number]- [place] Encounter Diagnosis Other abnormal glucose(Final) - Discharge Disposition: Home or Self Care Attending Physician: Yfn Tejada MD Admitting Physician: Yfn Tejada MD Referring Physician: Yfn Tejada MD Allergies, Adverse Reactions, Alerts No Known Medication Allergies Assessment and Plan Future Appointments Appointment Date:05/02/2024 04:15:00 PM Scheduled Provider:Rod Samuel MD Location:[facility] Appointment Type:OB Follow Up Appointment Date:05/09/2024 04:15:00 PM Scheduled Provider:Shalini Edward APRN Location:[facility] Appointment Type:OB Follow Up Appointment Date:05/16/2024 09:15:00 AM Scheduled Provider:Rod Samuel MD Location:[facility] Appointment Type:OB Follow Up Appointment Date:05/23/2024 08:45:00 AM Scheduled Provider:Yfn Tejada MD Location:[facility] Appointment Type:OB Follow Up Appointment Date:05/30/2024 04:00:00 PM Scheduled Provider:Yfn Tejada MD Location:[facility] Appointment Type:OB Follow Up Future [...] instructions, # 1 EA, 1 Refill(s), Pharmacy: [id number] Start Date: 03/08/24 Status: Ordered freestyle freedom lite strips freestyle freedom lite strips, 4x daily testing. box of 100, Supply, See instructions, # 1 EA, 1 Refill(s), Pharmacy: [id number] Start Date: 03/08/24 Status: Ordered magnesium glycinate [...] bone 2006 Completed Adenoidectomy 2002 Completed Results Radiology Reports * Exam Date Time Procedure Performing Provider Status 04/30/24 7:27 AM US OB Follow Up Maillet, Declan; Heide (Verified) Notes: (US OB Follow Up) Reason For Exam: GDM /Growth US OB Follow Up EXAM DESCRIPTION: US OB Follow Up 04/30/2024 INDICATION: GDM /GROWTH TECHNIQUE: Grayscale obstetric ultrasound. Static and cine clip images were obtained COMPARISON: 03/22/2024 FINDINGS: Single live intrauterine gestation in cephalic position with average ultrasound age of 35 weeks 4 days for an ultrasound BRAD of 05/31/2024. This is less than expected gestational age of approximately 38 weeks 1 day based on prior study and time interval. BPD: 37 weeks 0 days Head circumference: 35 weeks 5 days Abdominal circumference: 37 weeks 3 days Femur length: 31 weeks 1 day heart rate was 127 beats per minute CHANA is 14.7 cm Estimated weight is 2750 g which is the 40th percentile by LMP. IMPRESSION: Single live intrauterine gestation in cephalic position with average ultrasound age of 35 weeks 4 days for an ultrasound BRAD of 05/31/2024. Please see above discussion. JOB #: [id number] Final Signed by: Yfn Wilcox MD Signed (Electronic Signature): 04/30/2024 8:38 am Social History Social History Type Response Smoking Status Smoking tobacco use: Never tobacco user;Never entered on: 11/22/23 Sex Patient Care team information Care Team Personnel Name: BEA ALONZO APRN, V Position: No Access Member Role: Primary Care Physician Address: Address: [place] [address]- [place] Care Team Related Persons Name: FAHAD TAVERAS
--- OUTSIDE RECORDS SUMMARY | 2024-10-17 21:11 | XMS_ITS | Continuity of Care Document ---
Author Organization [facility] Ambulatory Clinics Address [address] [place] [address] Care Team Providers Care Chemist Water Purification Name Role Phone BEA ALONZO APRN, V Primary Care Physician Encounter [facility] NBR [id number] Date(s): 03/07/24 - 03/07/[address] [facility] Ambulatory Clinics [address] [place], [place] [id number]- [place] Discharge Disposition: Home Allergies, Adverse Reactions, Alerts No Known Medication Allergies Assessment and Plan Future Appointments Appointment Date:03/22/2024 04:00:00 PM Scheduled Provider:Kelvin Martinez MD Location:[facility] Appointment Type:OB Follow Up Appointment Date:04/04/2024 04:00:00 PM Scheduled Provider:Yfn Tejada MD Location:[facility] Appointment Type:OB Follow Up Appointment Date:04/16/2024 04:00:00 PM Scheduled Provider:Yfn Tejada MD Location:[facility] Appointment Type:OB Follow Up Appointment Date:05/02/2024 04:15:00 PM Scheduled Provider:Rod Samuel MD Location:[facility] Appointment Type:OB Follow Up Appointment Date:05/09/2024 04:15:00 PM Scheduled Provider:Shalini Edward APRN Location:[facility] Appointment Type:OB Follow Up Appointment Date:05/16/2024 09:15:00 AM Scheduled Provider:Rod Samuel MD Location:[facility] Appointment Type:OB Follow Up Appointment Date:05/23/2024 08:45:00 AM Scheduled Provider:Yfn Tejada MD Location:[facility] Appointment Type:OB Follow Up Appointment Date:05/30/2024 04:00:00 PM Scheduled Provider:Yfn Tejada MD Location:[facility] Appointment Type:OB Follow Up Future Scheduled Tests Laboratory* .GTT 3 HR OB 100gm 03/05/24 * .GTT 2 HR OB 100gm 03/05/24 * .GTT 1 HR OB 100gm 03/05/24 * .GTT Fasting OB 03/05/24 Radiology* US OB Follow Up 03/22/24 Immunizations Given and Recorded Vaccine Date Status Refusal Reason tetanus/diphth/pertuss (Tdap) adult/adol 03/05/24 Given Medications Dexcom 6 monitor Dexcom 6 monitor, Pt would like to see cost without PA, Supply, See instructions, # 1 EA, 0 Refill(s), Pharmacy: [facility] [id number] Start Date: 03/08/24 Status: Ordered Dexcom 6 sewing machine tester Dexcom 6 sewing machine tester, Pt would like to see cost without PA, Supply, See instructions, # 1 EA, 0 Refill(s), Pharmacy: [facility] [id number] Start Date: 03/08/24 Status: Ordered Dexcom 6 sensor Dexcom 6 sensor, Pt would like to see cost without PA, Supply, See instructions, # 1 EA, 0 Refill(s), Pharmacy: [facility] [id number] Start Date: 03/08/24 Status: Ordered Dexcom 6 transmitter Dexcom 6 transmitter, Pt would like to see cost without PA, Supply, See instructions, # 1 EA, 0 Refill(s), Pharmacy: [facility] [id number] Start Date: 03/08/24 Status: Ordered escitalopram 10 mg oral tablet [...] instructions, # 1 EA, 1 Refill(s), Pharmacy: [facility] [id number] Start Date: 03/08/24 Status: Ordered freestyle freedom lite strips freestyle freedom lite strips, 4x daily testing. box of 100, Supply, See instructions, # 1 EA, 1 Refill(s), Pharmacy: [id number] Start Date: 03/08/24 Status: Ordered levonorgestrel-ethinyl estradiol oral tablet 1 [...] Member Role: Primary Care Physician Address: Address: [place] [address]- Care Team Related Persons Name: FAHAD TAVERAS Address: Home
--- OUTSIDE RECORDS SUMMARY | 2024-10-17 21:11 | XMS_ITS | Encounter Summary ---
Author Organization [facility] Address [address] [place] [address] Care Team Providers Care Potato Peeling Machine Operator Name Role Phone Unavailable Primary Care Provider Unavailabl e Encounter Details Date Type Department Care Team (Late st Contact Info) Description 07/08/2021 Lab Requisition [facility] Pathology & Laboratory Medicine - [facility] [address] [place] [address] Outr Resulting Lab, Provider Social History Tobacco [...] Procedure Name Priority Date/Time Associated Diagnosis Comments HEPATITIS B SURFACE ANTIBODY Routine 07/08/2021 10:43 EDT documented in this encounter Results * HEPATITIS B SURFACE ANTIBODY (07/08/2021 10:43 EDT) Hep B Surface Ab, Quantitative 31.5 See Note mIU/mL 07/09/2021 10:00 EDT [facility] Comment: Reference Range for Hep B Surface Ab, Quant: Positive: >= 10.0 mIU/mL Negative: ??< 10.0 mIU/mL Patient is presumed to be immune to infection with Hepatitis B Virus. Hep B Surface Ab, Qualitative Positive See Note 07/09/2021 10:00 EDT [facility] Comment: Reference Range for Hep B Surface Ab, Qual: Unvaccinated: ??Negative Vaccinated: ??Positive Blood VENOUS BLOOD / Unknown 07/08/2021 10:43 EDT 07/08/2021 20:26 EDT us Provider Outr Resulting Lab CHEMISTRY & BLOOD GA S ORDERABLES Final Result [facility] [address] [place] [address] documented in this encounter Visit Diagnoses Not on filedocumented in this encounter
--- OUTSIDE RECORDS SUMMARY | 2024-10-17 21:11 | XMS_ITS | Continuity of Care Document ---
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 Role Phone BEA ALONZO APRN, V Primary Care Physician Encounter [facility] NBR [id number] Date(s): 05/28/24 - 05/30/24 [facility] [address] [place], [place] [id number]- [id number] Encounter Diagnosis - Spontaneous vaginal delivery(Discharge Diagnosis) - 05/28/24 Abnormal glucose tolerance test(Discharge Diagnosis) - 05/28/24 Group B Streptococcus carrier(Discharge Diagnosis) - 05/28/24 Discharge Disposition: Home f/u Internal Provider Attending Physician: Kelvin Martinez MD Admitting Physician: Kelvin Martinez MD Allergies, Adverse Reactions, Alerts No Known Medication Allergies Assessment and Plan Extracted from: Title:Progress/SOAP Note Author:Yfn Tejada MD Date:05/30/24 1.?? - Spontaneous vaginal delivery??O80 ??PPD 1 s/p Ok to discharge home.?? 2.??Group B Streptococcus carrier??Z22.330 3.??Abnormal glucose tolerance test??R73.09 Orders: Discharge Patient, 05/30/24 3:56:00 EDT, Home Independently Extracted from: Title:Discharge Note Author:Yfn Tejada MD Date :05/30/24 Discharge Plan 1.?? - Spontaneous vaginal delivery??O80 2.??Group B Streptococcus carrier??Z22.330 3.??Abnormal glucose tolerance test??R73.09 Orders: Discharge Patient, 05/30/24 3:56:00 EDT, Home Independently Follow Up With When Contact Information Kelvin Martinez MD Within 1 to 2 weeks [address] [place] [address] Additional Instructions: Extracted from: Title:OB - Acute Author:Kelvin Martinez MD Date:05/29/24 1.?? - Spontaneous vagina l delivery??O80 2.??Group B Streptococcus carrier??Z22.330 3.??Abnormal glucose tolerance test??R73.09 Routine?? care. ??Probable discharge??tomorrow morning. Extracted from: Title:OB Delivery - Vaginal Author:Kelvin Martinez MD Date:05/28/24 1.?? - Spontaneous vagina l delivery??O80 2.??Group B Streptococcus carrier??Z22.330 3.??Abnormal glucose tolerance test??R73.09 Extracted from: Title:OB Admission H&P Author:Kelvin Martinez MD Da te:05/28/24 1.??Abnormal glucose toleran ce test??R73.09 2.??Encounter for supervision of normal in multigravida in third trimester??Z34.83 3.??Group B Streptococcus carrier??Z22.330 Admit for delivery.?IV Ampicillin for GBS prophylaxis.?? Discussed??pain management??with the patient. ??She will consider IV pain medications and Nitrous Oxide. ??She does not want an epidural at this time. Future Scheduled Tests Laboratory* .GTT 3 HR OB 100gm 03/05/24 * .GTT 2 HR OB 100gm 03/05/24 * .GTT 1 HR OB 100gm 03/05/24 * .GTT Fasting OB 03/05/24 Functional Status 05/29/24 Activity Status ADL Up ad rimma Activity Assistance Independent Diet Type Reg Jess Care Independent 05/29/24 Dinner Percent 100 05/29/24 Personal Care Provided Shower 05/29/24 Breakfast Percent 100 05/29/24 ADLs Independent 05/28/24 Verbalizes Home Medications Accurately Family Member Travel History No recent t ravel Recent Travel History No recent travel Other exposure to Infectious Disease Non e Immunizations Given and Recorded Vaccine Date Status Refusal Reason tetanus/diphth/pertuss (Tdap) adult/adol 03/05/24 Given Medications citalopram 10 mg oral tablet 10 mg = 1 tab, Oral, Daily, # 90 tab, 4 Refill(s), Pharmacy: [facility], 165.1, cm, 05/02/24 16:11:00 EDT, Height, 64.2, kg, 05/02/24 16:16:00 EDT, Weight Dosing Start Date: 05/02/24 Stop Date: 07/26/25 Status: Ordered freestyle freedom lite lancets freestyle freedom lite lancets, 4x daily testing. Box of 100, Supply, See instructions, # 1 EA, 1 Refill(s), Pharmacy: [facility] Start Date: 03/08/24 Status: Ordered freestyle freedom lite strips freestyle freedom lite strips, 4x daily testing. box of 100, Supply, See instructions, # 1 EA, 1 Refill(s), Pharmacy: [facility] Start Date: 03/08/24 Status: Ordered magnesium glycinate 200 mg oral tablet 200 mg = 1 tab, Daily, 0 Refill(s) Start Date: 01/03/24 Status: Ordered omeprazole 20 mg oral delayed release capsule 20 mg = 1 cap, Oral, Daily, 0 Refill(s) Start Date: 03/05/24 Status: Ordered Multivitamins One-a-day womens 28-0.8 &44mg as directed orally., 0 Refill(s) Start Date: 09/27/23 Status: Ordered Problem List Condition Confirmation Course Effective Dates Status H ealth Status Informant Anxiety Confirmed Active Size of fetus inconsistent with dates in third trimester Confirmed Active Diabetes, gestational 1 Confirmed 2020 Active Abnormal glucose tolerance test Confirmed Active Group B Streptococcus carrier Confirmed Active History of gestational diabetes mellitus (GDM) in prior , currently Confirmed Active Encounter for supervision of normal in multigravida in third trimester Confirmed Active Confirmed 08/21/23 Active - Spontaneous vaginal delivery Confirmed Active 1Diet controlled, A1c 4.5 post-delivery. 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 Completed Adenoidectomy 2002 Completed Results Laboratory List Name Date Hematocrit 05/29/24 Hemoglobin 05/29/24 Automated Diff 05/28/24 .Morphology (LTTL) 05/28/24 ABO/Rh 05/28/24 Antibody Screen Gel 05/28/24 CBC w/ Diff 05/28/24 T pallidum Screening Davison LC (Syphill is Screening Davison LC [id number]) 05/28/24 Amnisure ROM 05/28/24 Most recent to oldest [Reference Range]: 1 2 WBC [4.8-10.8 K/mcL] 10.5 K/mcL (05/28/24 10:08 PM) RBC [4.20-5.40 Million/mcL] 3.85 Million /mcL *LOW* (05/28/24 10:08 PM) Neutro Auto [42.2-75.2 %] 73.5 % (05/28/24 10:08 PM) Lymph Auto [20.5-51.1 %] 19.2 % *LOW* (05/28/24 10:08 PM) [place] Auto [1.7-9.3 %] 6.2 % (05/28/24 10:08 PM) Basophil Auto [0.0-0.8 %] 0.3 % (05/28/24 10:08 PM) ABO/Rh Type O POS *Unknown* (05/28/24 10:08 PM) Baso Absolute [0.00-0.20 K/mcL] 0.00 K/m cL (05/28/24 10:08 PM) MCV [81.0-99.0 fL] 90.7 fL (05/28/24 10:08 PM) RBC Morph [Normal] Abnormal *ABN* (05/28/24 10:08 PM) MCHC [32.0-37.0 g/dL] 35.2 g/dL (05/28/24 10:08 PM) Lymph Absolute [1.2-3.4 K/mcL] 2.0 K/mcL (05/28/24 10:08 PM) Hct [37.0-47.0 %] 32.2 % *LOW* (05/29/24 7:29 AM) 34.9 % *LOW* (05/28/24 10:08 PM) Microcyte 1+ *ABN* (05/28/24 10:08 PM) [place] Absolute [0.1-0.6 K/mcL] 0.7 K/mcL *HI* (05/28/24 10:08 PM) MCH [27.0-31.0 pg] 31.9 pg *HI* (05/28/24 10:08 PM) Neutro Absolute [1.4-6.5 K/mcL] 7.7 K/mc L *HI* (05/28/24 10:08 PM) Hgb [12.0-16.0 g/dL] 11.3 g/dL *LOW* (05/29/24 7:29 AM) 12.3 g/dL (05/28/24 10:08 PM) MPV [7.4-10.4 fL] 10.5 fL *HI* (05/28/24 10:08 PM) Platelets [130-400 K/mcL] 118 K/mcL *LOW* (05/28/24 10:08 PM) Eos Absolute [0.0-0.2 K/mcL] 0.1 K/mcL (05/28/24 10:08 PM) RDW-CV [11.5-14.5 %] 19.5 % *HI* (05/28/24 10:08 PM) Slide Review Morph Only (05/28/24 10:08 PM) Plt Large Few *ABN* (05/28/24 10:08 PM) Amnisure ROM [Negative] Positive *ABN* (05/28/24 9:45 PM) Anisocyte 2+ (05/28/24 10:08 PM) Treponema pallidum Antibodie s: LC [Non Reactive] Non Reactive 1 *NA* (05/28/24 10:08 PM) Antibody Screen Gel Negative ABSC (05/28/24 10:08 PM) Plt Estimation Decreased *ABN* (05/28/24 10:08 PM) Eos, Auto [0.00-3.00 %] 0.80 % (05/28/24 10:08 PM) 1Result Comment: Performed At: RN [facility] [address] [place], [place] [id number] Rafi Chavez MD Ph:[phone] Vital Signs Most recent to oldest [Reference Range]: 1 2 3 Temperature Axillary [35.2-38 Deg C] 37.0 Deg C (05/29/24 1:53 AM) Temperature Axillary (DegF) [97-100.9 Deg F] 98.6 Deg F (05/29/24 1:53 AM) Temperature Temporal Artery [36-38 Deg C] 36.9 Deg C (05/29/24 8:00 AM) 36.8 Deg C (05/28/24 9:14 PM) Temperature Temporal Artery (DegF) [97.3-100 Deg F] 98.24 Deg F (05/28/24 9:14 PM) Heart Rate Monitored [60-100 bpm] 65 bpm (05/29/24 9:54 PM) 65 bpm (05/29/24 9:30 PM) 63 bpm (05/29/24 8:00 AM) Respiratory Rate [12-24 br/min] 18 br/min (05/29/24 8:00 AM) Blood Pressure [90-140/60-90 mmHg] 107/59mmHg (05/29/24 9:30 PM) 118/73mmHg (05/29/24 8:00 AM) 117/59mmHg (05/29/24 5:37 AM) Mean Arterial Pressure, Cuff [65-140 mmHg] 88 mmHg (05/29/24 8:00 AM) 78 mmHg (05/29/24 5:37 AM) 74 mmHg (05/29/24 2:50 AM) Weight 64.4 kg (05/28/24 11:48 PM) 64.4 kg (05/28/24 10:03 PM) Weight Dosing 64.400 kg (05/28/24 10:03 PM) Height 165.1 cm (05/28/24 11:48 PM) 165.1 cm (05/28/24 10:03 PM) BSA Measured 1.72 m2 (05/28/24 10:03 PM) BSA Estimated 0 m2 (05/28/24 10:03 PM) Body Mass Index 23.63 kg/m2 (05/28/24 11:48 PM) 23.63 kg/m2 (05/28/24 10:03 PM) Social History Social History Type Response Smoking Status Smoking tobacco use: Never tobacco user;Never entered on: 11/22/23 Sex Hospital Discharge Instructions Patient Education 05/30/2024 02:57:07 [facility] - Vaginal or Delivery Post Discharge Instructions (CUSTOM) [facility] POST DISCHARGE INSTRUCTIONS Going home after a Vaginal or delivery GENERAL: You have just had a baby. It is normal to feel tired and worn out over the next several weeks. Sleep is difficult to get when you have a . We recommend sleeping when your baby sleeps if possible or asking someone to watch your so you can nap. Some discomfort is expected after a vaginal delivery. Most times this discomfort can be adequately managed with rest, heat, Ibuprofen, and Tylenol. Occasionally a narcotic may be needed for breakthrough pain. If you begin to have pain that is not controlled with the medications you were sent home with or if you develop fever and chills, please give the office a call. Vaginal bleeding is normal as your uterus works on returning to its normal size. While nursing yourbaby your uterus may feel crampy and your bleeding may increase during these times. You may experience some clots that may be dime size, quarter size and fifty cent size. This is normal. If you continue to pass larger clots, and the flow is increasing over 4 hours, we recommend that you call the office. If you had a vaginal tear that required suturing these sutures will dissolve over the next three weeks. During this process you may notice some yellowish drainage that may have a foul odor. This is the suture material breaking down, and it is a normal process. Keep the tissue clean with your pericare bottle or by taking a bath. Tucks pads can also be helpful. If you have an incision on your abdomen these sutures will dissolve on their own over the next 2 to 3 weeks. There are sutures that are deeper inside that will take 3 months to dissolve. Remember that eating a diet rich in protein will help your incision heal. When showering let the water run over your incision and pat dry with a towel. You do not need to redress the wound. If it rubs against your pants and feels sore, it is fine to place a gauze pad between your incision and your clothing for cushioning. If you are your milk will come in three or four days after you have given . It is normal for your nipples to feel sore for the first couple of weeks, but it is not normal for them to bleed, crack, or feel so raw that you feel like stopping breast feeding. We have support on the OB unit and Shalini is also a mortgage consultant in the office. They are very willing to help and provide support in any way they can. During your we talked about what your control plans would be after your delivery. Most times we can make a plan at your six week post checkup and start the plan of your choice at that time. If we know ahead of time what your plan is we can schedule you appropriately and make sure we have what we need on hand when you come for the appointment. It is normal to experience post blues. Your hormone levels change dramatically after you deliver and this can cause you to feel tired, teary eyed, sad, and overwhelmed at times. The post blues typically improve after 2-3 weeks. Post depression can settle in after that and can be very worrisome. If you feel that you cannot stop crying, do not want to see your baby, are struggling to leave your house and/or find that your mind is racing and you can't settle down, please call [facility], and we can see you to discuss depression. ACTIVITY: If you had a vaginal tear that required suturing please avoid sexual intercourse until your six week post visit. If you had no tearing we recommend that you wait to have intercourse until all of your bleeding has stopped. Keep in mind that you can get if you aren't on anything for contraception. If your baby was delivered by please avoid sexual intercourse until your six week post visit. You should also do no heavy lifting for six weeks. Any lifting that takes the strength ofboth of your arms/hands is contraindicated. If you need both hands because whatever you are liftingis cumbersome that is fine. For example, a laundry basket with a few bath towels in it. Also it is good for you to climb stairs and to go for small walks. Your blood volume doubles during . After delivery your body works on removing all of this extra fluid. You may have noticed that your legs and ankles felt pretty swollen prior to delivery. It is normal to see this swelling get worse after delivery. It gets worse if you aren't drinking enough water and/or if you are eating foods with too much sodium. Push the water and watch your salts tohelp the swelling resolve as quickly as possible. Putting your feet up and wearing 2 pairs of socksfor compression can help as well. Most post women who wish to return to work typically do so between 6 and 12 weeks. If you feel you have recovered to the point that you are ready to return to work, please call the office and let one of the secretaries know. It is usually best to discuss your return to work with your employer and pick a date for your return you both agree upon. Let us know that date and a letter will be provided that can be faxed to your employer clearing you to return to work without restriction on yourchosen date. MEDICATIONS: Continue all regularly prescribed medications unless your provider told you to stop a particular medication after your delivery. Continue taking your vitamins until your six week post visit. Ibuprofen is the best medication for your baseline pain control. Taking 600mg by mouth every four hours well help with most of your post pain. Taking it with food is best so it doesn't upset your stomach. Taking it consistently will provide you the greatest pain relief. Tylenol combined with a narcotic: You may have been sent home with a narcotic for pain control. Taking 1 or 2 tablets every 4-6 hours as needed can be helpful for pain you have that isn't covered by the Ibuprofen. We recommend trying one tablet in an attempt to get your pain at a five or less on the pain scale. If after twenty minutes your pain is still greater than a five, you may take the second tablet. There is typically 325mg of Tylenol in each tablet. Be careful not to consume more than 3000mg of Tylenol daily. Most people will find that they need narcotic containing medications sparingly and within a few days not at all. If you had a delivery you may need this medication for a few extra days. These medications are constipating, can leave you slightly sick to your stomach and don't help with inflammation. Increase fluids and fiber. You may need an over the counter stool softener such as Colace or Senna. Taper this type of medication first and then the Ibuprofen. Our office policy is that post op patients can use narcotics in addition to Ibuprofen for up to 7 days. After that, post op pain should be treated with Ibuprofen alone and no further prescriptions for narcotics will be provided. These are the two main medications that we use for post op pain management. See below for the medications that we have recommended you use when you go home. You will have to have the prescriptions filled by your pharmacy. Ibuprofen 600mg by mouth every 4 hours for baseline pain control. Percocet 5/325mg by mouth, 1 or 2 tablets every 4 to 6 hours as needed for pain. Tylenol #3 by mouth, 1 or 2 tablets every 4 to 6 hours as needed for pain. Continue taking your vitamins at least until your six week post visit. Iron sulfate 325mg twice daily - take on an empty stomach with a glass of OJ or a vitamin C tablet until gone. Colace or Senakot once or twice daily to avoid constipation. NorQD for control taken daily at the same time starting in 2 weeks. FOLLOW UP APPOINTMENT: Post appointment is on @ . If this time does not work for you, please call the office to reschedule. The number is . If you need to contact Maternity thenumber is and ask for the Maternity Department. Follow Up Care 05/28/2024 21:08:11 With:Kelvin Martinez MD Address: [address] [place] [id number] When:1 to 2 weeks Discharge instructions * Pooja Aguirre: PERFORM Event Display: Discharge Instructions Authored Date: [id number] LOC TAVERAS :1995 Age:28 years Sex:Female Visit Date:05/28/2024 Primary Care Physician: BEA ALONZO APRN, V Hospital Discharge Instructions We would like to thank you for allowing us to assist you with your healthcare needs. The following includes patient education materials and information regarding your injury/illness. Your Next Steps Follow Up Appointments Follow Up with??Kelvin Martinez MD When:??Within 1 to 2 weeks Where: [address] [place] [phone] Medications What How Much When Instructions Next Dose Changed omeprazole (omeprazole 20 mg oral delayed releasecapsule) 1 Capsules Oral (given by mouth) Every day Unchanged citalopram (citalopram 10 mg oral tablet) 1 tab Oral (given by mouth) Every day Duration: 90 Days Unchanged Durable Medical Equipment for Prescription (freestyle freedom lite lancets) See instructions 4x daily testing. Box of 100 ?? Unchanged FreeStyle Lite Test Strips (freestyle freedom lite strips) See instructions 4x daily testing. box of 100 ?? Unchanged magnesium glycinate (magnesium glycinate 200 mg oral tablet) 1 tab Every day Unchanged multivitamin, ( Multivitamins) One-a-day womens 28-0.8 &44mg as directed orally. ?? Your Summary Your Care Team Admitting Physician - Kelvin Martinez MD Attending Physician - Kelvin Martinez MD Primary Care Physician - BEA ALONZO APRN, V Your Diagnosis - Spontaneous vaginal delivery Group B Streptococcus carrier Abnormal glucose tolerance test Problems Ongoing - Any problem that you are currently receiving treatment for. Abnormal glucose tolerance test Anxiety Diabetes, gestational Encounter for supervision of normal in multigravida in third trimester Group B Streptococcus carrier History of gestational diabetes mellitus (GDM) in prior , currently Size of fetus inconsistent with dates in third trimester - Spontaneous vaginal delivery Historical - Any problem that you are no longer receiving treatment for. Tests Performed/Pending .Morphology (LTTL) ABO/Rh Amnisure ROM Antibody Screen Gel Automated Diff CBC w/ Diff Hematocrit Hemoglobin Syphillis Screening Davison [id number]?-- Results Pending -- Discharge Vitals Temperature??(Temporal Artery) 98.4 ??F (36.9 ??C) Heart Rate??(Monitored) 65 Respiratory Rate?? 18 Blood Pressure?? 107/59?? Allergies No Known Medication Allergies Education Materials [facility] POST DISCHARGE INSTRUCTIONS Going home after a Vaginal or delivery GENERAL: You have just had a baby. It is normal to feel tired and worn out over the next several weeks. Sleep is difficult to get when you have a . We recommend sleeping when your baby sleeps if possible or asking someone to watch your so you can nap. Some discomfort is expected after a vaginal delivery. Most times this discomfort can be adequately managed with rest, heat, Ibuprofen, and Tylenol. Occasionally a narcotic may be needed for breakthrough pain. If you begin to have pain that is not controlled with the medications you were sent home with or if you develop fever and chills, please give the office a call. Vaginal bleeding is normal as your uterus works on returning to its normal size. While nursing yourbaby your uterus may feel crampy and your bleeding may increase during these times. You may experience some clots that may be dime size, quarter size and fifty cent size. This is normal. If you continue to pass larger clots, and the flow is increasing over 4 hours, we recommend that you call the office. If you had a vaginal tear that required suturing these sutures will dissolve over the next three weeks. During this process you may notice some yellowish drainage that may have a foul odor. This is the suture material breaking down, and it is a normal process. Keep the tissue clean with your pericare bottle or by taking a bath. Tucks pads can also be helpful. If you have an incision on your abdomen these sutures will dissolve on their own over the next 2 to 3 weeks. There are sutures that are deeper inside that will take 3 months to dissolve. Remember that eating a diet rich in protein will help your incision heal. When showering let the water run over your incision and pat dry with a towel. You do not need to redress the wound. If it rubs against your pants and feels sore, it is fine to place a gauze pad between your incision and your clothing for cushioning. If you are your milk will come in three or four days after you have given . It is normal for your nipples to feel sore for the first couple of weeks, but it is not normal for them to bleed, crack, or feel so raw that you feel like stopping breast feeding. We have support on the OB unit and Shalini is also a mortgage consultant in the office. They are very willing to help and provide support in any way they can. During your we talked about what your control plans would be after your delivery. Most times we can make a plan at your six week post checkup and start the plan of your choice at that time. If we know ahead of time what your plan is we can schedule you appropriately and make sure we have what we need on hand when you come for the appointment. It is normal to experience post blues. Your hormone levels change dramatically after you deliver and this can cause you to feel tired, teary eyed, sad, and overwhelmed at times. The post blues typically improve after 2-3 weeks. Post depression can settle in after that and can be very worrisome. If you feel that you cannot stop crying, do not want to see your baby, are struggling to leave your house and/or find that your mind is racing and you can't settle down, please call [facility], and we can see you to discuss depression. ACTIVITY: If you had a vaginal tear that required suturing please avoid sexual intercourse until your six week post visit. If you had no tearing we recommend that you wait to have intercourse until all of your bleeding has stopped. Keep in mind that you can get if you aren't on anything for contraception. If your baby was delivered by please avoid sexual intercourse until your six week post visit. You should also do no heavy lifting for six weeks. Any lifting that takes the strength ofboth of your arms/hands is contraindicated. If you need both hands because whatever you are liftingis cumbersome that is fine. For example, a laundry basket with a few bath towels in it. Also it is good for you to climb stairs and to go for small walks. Your blood volume doubles during . After delivery your body works on removing all of this extra fluid. You may have noticed that your legs and ankles felt pretty swollen prior to delivery. It is normal to see this swelling get worse after delivery. It gets worse if you aren't drinking enough water and/or if you are eating foods with too much sodium. Push the water and watch your salts tohelp the swelling resolve as quickly as possible. Putting your feet up and wearing 2 pairs of socksfor compression can help as well. Most post women who wish to return to work typically do so between 6 and 12 weeks. If you feel you have recovered to the point that you are ready to return to work, please call the office and let one of the secretaries know. It is usually best to discuss your return to work with your employer and pick a date for your return you both agree upon. Let us know that date and a letter will be provided that can be faxed to your employer clearing you to return to work without restriction on yourchosen date. MEDICATIONS: Continue all regularly prescribed medications unless your provider told you to stop a particular medication after your delivery. Continue taking your vitamins until your six week post visit. Ibuprofen is the best medication for your baseline pain control. Taking 600mg by mouth every four hours well help with most of your post pain. Taking it with food is best so it doesn't upset your stomach. Taking it consistently will provide you the greatest pain relief. Tylenol combined with a narcotic: You may have been sent home with a narcotic for pain control. Taking 1 or 2 tablets every 4-6 hours as needed can be helpful for pain you have that isn't covered by the Ibuprofen. We recommend trying one tablet in an attempt to get your pain at a five or less on the pain scale. If after twenty minutes your pain is still greater than a five, you may take the second tablet. There is typically 325mg of Tylenol in each tablet. Be careful not to consume more than 3000mg of Tylenol daily. Most people will find that they need narcotic containing medications sparingly and within a few days not at all. If you had a delivery you may need this medication for a few extra days. These medications are constipating, can leave you slightly sick to your stomach and don't help with inflammation. Increase fluids and fiber. You may need an over the counter stool softener such as Colace or Senna. Taper this type of medication first and then the Ibuprofen. Our office policy is that post op patients can use narcotics in addition to Ibuprofen for up to 7 days. After that, post op pain should be treated with Ibuprofen alone and no further prescriptions for narcotics will be provided. These are the two main medications that we use for post op pain management. See below for the medications that we have recommended you use when you go home. You will have to have the prescriptions filled by your pharmacy. Ibuprofen 600mg by mouth every 4 hours for baseline pain control. Percocet 5/325mg by mouth, 1 or 2 tablets every 4 to 6 hours as needed for pain. Tylenol #3 by mouth, 1 or 2 tablets every 4 to 6 hours as needed for pain. Continue taking your vitamins at least until your six week post visit. Iron sulfate 325mg twice daily - take on an empty stomach with a glass of OJ or a vitamin C tablet until gone. Colace or Senakot once or twice daily to avoid constipation. NorQD for control taken daily at the same time starting in 2 weeks. FOLLOW UP APPOINTMENT: Post appointment is on @ . If this time does not work for you, please call the office to reschedule. The number is [phone]. If you need to contact Maternity thenumber is and ask for the Maternity Department. Patient/Nursing Service Administrator Signature Patient Name:LOC TAVERAS I have received this information and my questions have been answered. Patient/Nursing Service Administrator Name: Patient/Nursing Service Administrator Signature: Relationship to Patient: Witness Name/Signature: Date: Electronically Signed on: 05/30/2024 04:02 EDTSigned by: Obstetrics Progress note * Yfn Tejada, MD: PERFORM Event Display: Obstetrics Progress Note Authored Date: [id number] LOC TAVERAS :1995 Age:28 years Sex:Female Visit Date:05/28/2024 Primary Care Physician: BEA ALONZO APRN, V Subjective Patient did well through the first day.?? Lochia was minimal. No significant pain.?? [place] is requiring transfer to [facility] and patient is requesting discharge to accompany the .?? Objective Vitals & Measurements T:??36.9?C ??(Temporal Artery)?? HR:??65??(Monitored)?? RR:??18?? BP:??107/59?? Pain Score:??3?? Assessment/Plan 1.?? - Spontaneous vaginal delivery??O80 ??PPD 1 s/p Ok to discharge home.?? 2.??Group B Streptococcus carrier??Z22.330 3.??Abnormal glucose tolerance test??R73.09 Orders: Discharge Patient, 05/30/24 3:56:00 EDT, Home Independently Electronically Signed on 05/30/2024 04:00 EDT Yfn Tejada MD Note * Kelvin Martinez MD: PERFORM Event Display: OB Note Authored Date: [id number] LOC TAVERAS :1995 Age:28 years Sex:Female Visit Date:05/28/2024 Primary Care Physician: BEA ALONZO APRN, V History of Present Illness PPD#1 The patient is doing well status post??Spontaneous Vaginal Delivery.?? She is ambulatory and tolerating regular diet.?? She is working on??breast-feeding.?? The Lochial blood flow is tapering. ??Her pain is managed with??oral Tylenol and Ibuprofen. Recovery and Fundal ToneFirm Fundal Height (+1) umbilicus Lochia AmountModerate Lochia ColorRubra Physical Exam Vitals & Measurements T:??37.0?C ??(Axillary)?? TMIN:??36.8?C ??(Temporal Artery)?? TMAX:??37.0?C ??(Axillary)?? HR:??61??(Monitored)?? BP:??117/59?? HT:??165.1??cm?? WT:??64.4??kg?? BMI:??23.63?? Pain Score:??0?? BSA:??1.72?? GENERAL: Cooperative, alert, no acute distress. Appears pale. Not diaphoretic. HEENT: Head is normocephalic, atraumatic. PERRLA.?? HEART: Regular rate and rhythm without murmur. LUNGS: Clear to auscultation bilaterally, no wheeze, rales or rhonchi. ABDOMEN: Soft, nondistended.??Fundus is firm and palpable below the umbilicus. EXTREMITIES: No edema or tenderness. Vagina: No abnormal swelling??or??signs of infection. ??Tapering lochia rubra.?? Assessment/Plan 1.?? - Spontaneous vaginal delivery??O80 2.??Group B Streptococcus carrier??Z22.330 3.??Abnormal glucose tolerance test??R73.09 Routine?? care. ??Probable discharge??tomorrow morning. Delivery Details Baby A Delivery Type:Vaginal D-EGA at Delivery:40 weeks 1 day Maternal Delivery Complications:None LMP/EGA/BRAD No qualifying data available. Gestational Age (EGA) and BRAD? * Note: EGA calculated as of 05/29/2024 ?? BRAD:??05/27/2024?EGA*:??40 weeks 1 day ?Type:??Authoritative?MethodDate:??08/21/2023 ?Method:??Last Menstrual Period??(08/21/2023) ?Confirmation:??Confirmed ?Description:??-- ?Comments:??-- ?Entered [...] ?Type:??Non-Authoritative ?Comments:??normal appearing anatomy ?Entered by:??Shalini Edward, MORGAN on 01/03/2024 OB History History?(1,0,0,1)? # 1 ?Baby 1 ?Outcome Date:??04/06/2021?Outcome or Result:??Vaginal ?Gest Age:??40 weeks 2 days ? Outcome:??Live ? Sex:??Female?Wt:?3629 g ?Child's Name:??Jerica ?Hospital:??[facility] ?Comment:??gestational diabetes, diet controlled Antepartum Risk Factors Risk Factors, Antepartum Current Preg: Other: US 04/30 - Growth 40th percentile. (05/01/24) Risk Factors, Antepartum Current Preg: Other: Growth 88% - Repeat growth US 36- 37 weeks. (04/04/24) Risk Factors, Antepartum Current Preg: Other: platelets 109 (03/05/24) Risk Factors, Antepartum Current Preg: Other: Hx of diet controlled GDM (11/22/23) Problem List/Past Medical History Ongoing Abnormal glucose tolerance test Anxiety Diabetes, gestational Encounter for supervision of normal in multigravida in third trimester Group B Streptococcus carrier History of gestational diabetes mellitus (GDM) in prior , currently Size of fetus inconsistent with dates in third trimester - Spontaneous vaginal delivery Historical Medications Inpatient acetaminophen, 650 mg= 2 tab, Oral, every 4 hr, PRN benzocaine-menthol 20%-0.5% topical spray, 1 chetan, Topical, As Directed, PRN calcium (as carbonate) 500 mg oral tablet, 500 mg= 1 tab, Oral, every 2 hr, PRN calcium (as carbonate) 500 mg oral tablet, 1000 mg= 2 tab, Oral, every 2 hr, PRN docusate-senna 50 mg-8.6 mg oral tablet, 1 tab, Oral, BID, PRN ferrous sulfate, 325 mg= 1 tab, Oral, Daily ibuprofen, 600 mg= 1 tab, Oral, every 4 hr, PRN iron sucrose Lactated Ringers Injection 1,000 mL, 1000 mL, IV methylergonovine, 0.2 mg= 1 mL, Intramuscular, Once, PRN miSOPROStol, 1000 mcg= 5 tab, Rectal, Once, PRN multivitamin, , 1 tab, Oral, Daily naloxone, 0.1 mg= 0.25 mL, IV Push, every 5 min, PRN ondansetron, 4 mg= 2 mL, IV Push, every 6 hr, PRN oxytocin, 10 units= 1 mL, Intramuscular, Once, PRN oxytocin IV additive 20 units + LR Diluent 1,000 mL simethicone, 80 mg= 1 tab, Oral, As Directed, PRN sodium chloride 0.9% flush, 10 mL, IV Flush, As Directed, PRN tranexamic acid, 1000 mg= 100 mL, IV Piggyback, Once, PRN witch dagoberto 50% rectal pad, 1 chetan, Topical, As Directed, PRN Home citalopram 10 mg oral tablet, 10 mg= [...] capsule Multivitamins Allergies No Known Medication Allergies Procedure/Surgical History ???Right foot - removal of extra bone (2006)???Adenoidectomy (2002) Electronically Signed on 05/29/2024 07:27 EDT Kelvin Martinez MD * Kelvin Martinez MD: PERFORM, MODIFY Event Display: OB Delivery Summary Authored Date: [id number] LOC TAVERAS :1995 Age:28 years Sex:Female Visit Date:05/28/2024 Primary Care Physician: BEA ALONZO APRN, V Delivery Spontaneous Vaginal Delivery Disposition Mother and baby doing well History/Labor Course 28yo 001, BRAD- 05/27/2024 The patient presented to OB at 40??and 1/7 weeks??due to Ruptured Membranes at 8:20 PM??and??Regular??Contractions.?? On presentation, her cervix was 4 cm / 75%/-1??with a vertex presentation by RN exam.?? Her blood type is O+.?? She had an??Abnormal 1 hour GTT at 28 weeks. ??She did not??have a??3-hour GTT. ??She has been checking her blood sugars and has??good control with diet.?? She is GBS Positive. Her labor progressed quickly to??complete dilation. ??She pushed for a few contractions and accomplished delivery. ??She was only able to get 1 dose of IV ampicillin.?? She had a Spontaneous Vaginal Delivery of a live Male .?? The nose and pharynx was suctioned on the perineum prior to deliver the shoulders. ??There was no nuchal cord.?? The delivery was easily accomplished. ??The baby was placed onto his mother's abdomen. ??After delayed clamping, the cord was cut.?? The placenta delivered spontaneously and was intact. ??She received??IV Pitocin and the uterine fundus firmed up well. ??She had a small first-degree perineal laceration that was repaired with 3-0 chromic suture.?? 1% lidocaine was used for local anesthesia. ??EBL 200 mL. Delivery Documentation Baby A Delivery Details Delivery Type:Vaginal Date, Time of :05/28/2024 22:54 EDT Delivery of Head Date, Time:05/28/2024 22:54 EDT D-EGA at Delivery:40 weeks 1 day Placenta Details Placenta Delivery Date, Time:05/28/2024 22:58 EDT Placenta Delivery Method:Spontaneous Placenta to Pathology:Yes Maternal and Complications Maternal Delivery Complications:None Umbilical Cord Description:3 vessel cord Cord Blood Sent to Lab:Yes Assessment/Plan 1.?? - Spontaneous vaginal delivery??O80 2.??Group B Streptococcus carrier??Z22.330 3.??Abnormal glucose tolerance test??R73.09 LMP/EGA/BRAD No qualifying data available. Gestational Age (EGA) and BRAD? * Note: EGA calculated as of 05/28/2024 ?? BRAD:??05/27/2024?EGA*:??40 weeks 1 day ?Type:??Authoritative?MethodDate:??08/21/2023 ?Method:??Last Menstrual Period??(08/21/2023) ?Confirmation:??Confirmed ?Description:??-- ?Comments:??-- ?Entered [...] ?Type:??Non-Authoritative ?Comments:??normal appearing anatomy ?Entered by:??Shalini Edward, MORGAN on 01/03/2024 Labor Information Baby A Labor Onset Methods:Spontaneous Precipitous Labor:No Prolonged Labor:No Complete Cervical Dilation Date/Time05/28/2024 22:42 EDT OB History History?(1,0,0,1)? # 1 ?Baby 1 ?Outcome Date:??04/06/2021?Outcome or Result:??Vaginal ?Gest Age:??40 weeks 2 days ? Outcome:??Live ? Sex:??Female?Wt:?3629 g ?Child's Name:??Jerica ?Hospital:??[facility] ?Comment:??gestational diabetes, diet controlled Antepartum Risk Factors Risk Factors, Antepartum Current Preg: Other: US 04/30 - Growth 40th percentile. (05/01/24) Risk Factors, Antepartum Current Preg: Other: Growth 88% - Repeat growth US 36- 37 weeks. (04/04/24) Risk Factors, Antepartum Current Preg: Other: platelets 109 (03/05/24) Risk Factors, Antepartum Current Preg: Other: Hx of diet controlled GDM (11/22/23) Problem List/Past Medical History Ongoing Abnormal glucose tolerance test Anxiety Diabetes, gestational Encounter for supervision of normal in multigravida in third trimester Group B Streptococcus carrier History of gestational diabetes mellitus (GDM) in prior , currently Size of fetus inconsistent with dates in third trimester - Spontaneous vaginal delivery Historical Medications Inpatient acetaminophen, 650 mg= 2 tab, Oral, every 4 hr, PRN ampicillin benzocaine-menthol 20%-0.5% topical spray, 1 chetan, Topical, As Directed, PRN calcium (as carbonate) 500 mg oral tablet, 500 mg= 1 tab, Oral, every 2 hr, PRN calcium (as carbonate) 500 mg oral tablet, 1000 mg= 2 tab, Oral, every 2 hr, PRN docusate-senna 50 mg-8.6 mg oral tablet, 1 tab, Oral, BID, PRN ferrous sulfate, 325 mg= 1 tab, Oral, Daily ibuprofen, 600 mg= 1 tab, Oral, every 4 hr, PRN iron sucrose Lactated Ringers Injection 1,000 mL, 1000 mL, IV Lactated Ringers Injection 1,000 mL, 1000 mL, IV lidocaine 1% injectable solution, 20 mL, Infiltration, Once Methergine, 0.2 mg, Intramuscular, Once methylergonovine, 0.2 mg= 1 mL, Intramuscular, Once, PRN miSOPROStol, 1000 mcg, Rectal, Once, PRN multivitamin, , 1 tab, Oral, Daily naloxone, 0.1 mg= 0.25 mL, IV Push, every 5 min, PRN ondansetron, 4 mg= 2 mL, IV Push, every 6 hr, PRN oxytocin, 10 units= 1 mL, Intramuscular, Once, PRN oxytocin IV additive 10 units + LR Diluent 1,000 mL oxytocin IV additive 30 units + LR Diluent 500 mL simethicone, 80 mg= 1 tab, Oral, As Directed, PRN sodium chloride 0.9% flush, 10 mL, IV Flush, As Directed, PRN sodium chloride 0.9% flush, 10 mL, IV Flush, As Directed, PRN terbutaline, 0.25 mg= 0.25 mL, IV Push, Once tranexamic acid, 1000 mg= 100 mL, IV Piggyback, Once, PRN witch dagoberto 50% rectal pad, 1 chetan, Topical, As Directed, PRN Home citalopram 10 mg oral tablet, 10 mg= [...] capsule Multivitamins Allergies No Known Medication Allergies Transcribed Labs ABO/Rh Echo: O POS Blood [...] Performed: 11/22/23 Rubella,Transcribed: Immune Electronically Signed on 05/29/2024 06:54 EDT Kelvin Martinez MD History and physical note * Kelvin Martinez MD: PERFORM Event Display: History and Physical Authored Date: [id number] NITIN LOC L :1995 Age:28 years Sex:Female Visit Date:05/28/2024 Primary Care Physician: BEA ALONZO APRN, V History of Present Illness 28yo 001, BRAD- 05/27/2024 The patient presented to OB due to Ruptured Membranes at 8:20 PM??and??Regular??Contractions.?? On presentation, her cervix was 4 cm / 75%/- 1??with a vertex presentation by RN exam.?? Her bloodtype is O+.?? She had an??Abnormal 1 hour GTT at 28 weeks. ??She did not??have a??3-hour GTT. ??Shehas been checking her blood sugars and has??good control with diet.?? She is GBS Positive. Review of Systems Constitutional: No fevers, chills, sweats Eye: No recent visual problems ENMT: No ear pain, nasal congestion, sore throat Respiratory: No shortness of breath, cough Cardiovascular: No chest pain, palpitations, syncope Gastrointestinal: No nausea, vomiting, diarrhea Genitourinary: No hematuria, no dysuria, no unexpected vaginal bleeding, no ??change in vaginal discharge, no pelvic pain Dm/Lymph: Negative for bruising tendency, swollen lymph glands Endocrine: Negative for excessive thirst, excessive hunger Musculoskeletal: No back pain, neck pain, joint pain, muscle pain, decreased range of motion Integumentary: No rash, pruritus, abrasions Neurologic: Alert & oriented X 4 Psychiatric: No anxiety, depression Physical Exam Vitals & Measurements HT:??165.1??cm?? WT:??64.4??kg?? BMI:??23.63?? BSA:??1.72?? General: Alert and oriented, well nourished, no acute distress Eye: Pupils equal, EOMI HEENT: Normocephalic, grossly normal hearing, moist oral mucosa, no scleral icterus Lungs: Clear to auscultation, non-labored respiration Heart: Normal rate, regular rhythm, no murmurs Abdomen: Nontender, gravid Musculoskeletal: Grossly normal range of motion and strength, no tenderness or swelling Skin: Skin is warm, dry, no rashes Neurologic: Awake, alert, and oriented X4, CN II-XII grossly intact Psychiatric: Cooperative, appropriate mood and affect ? Cervix: 4cm/75%/-1, Vertex presentation, SROM- clear ?? Heart Monitor: Reassuring?? heart rate tracing. ??No??worrisome decelerations.?? Contractions every 2 to 3 minutes. Assessment/Plan 1.??Abnormal glucose tolerance test??R73.09 2.??Encounter for supervision of normal in multigravida in third trimester??Z34.83 3.??Group B Streptococcus carrier??Z22.330 Admit for delivery.?IV Ampicillin for GBS prophylaxis.?? Discussed??pain management??with the patient. ??She will consider IV pain medications and Nitrous Oxide. ??She does not want an epidural atthis time. LMP/EGA/BRAD No qualifying data available. Gestational Age (EGA) and BRAD? * Note: EGA calculated as of 05/28/2024 ?? BRAD:??05/27/2024?EGA*:??40 weeks 1 day ?Type:??Authoritative?MethodDate:??08/21/2023 ?Method:??Last Menstrual Period??(08/21/2023) ?Confirmation:??Confirmed ?Description:??-- ?Comments:??-- ?Entered [...] Age:??40 weeks 2 days ? Outcome:??Live ? Sex:??Female?Wt:?4399 g ?Child's Name:??Jerica ?[facility]ospital:[facility] ?Comment:??gestational diabetes, diet controlled Antepartum Risk Factors Risk Factors, Antepartum Current Preg: Other: US 04/30 - Growth 40th percentile. (05/01/24) Risk Factors, Antepartum Current Preg: Other: Growth 88% - Repeat growth US 36- 37 weeks. (04/04/24) Risk Factors, Antepartum Current Preg: Other: platelets 109 (03/05/24) Risk Factors, Antepartum Current Preg: Other: Hx of diet controlled GDM (11/22/23) Problem List/Past Medical History Ongoing Abnormal glucose tolerance test Anxiety Diabetes, gestational Encounter for supervision of normal in multigravida in third trimester Group B Streptococcus carrier History of gestational diabetes mellitus (GDM) in prior , currently Size of fetus inconsistent with dates in third trimester Historical Procedure/Surgical History ???Right foot - removal of extra bone (2006)???Adenoidectomy (2002) Medications Inpatient ampicillin Lactated Ringers Injection 1,000 mL, 1000 mL, IV ondansetron, 4 mg= 2 mL, IV Push, every 6 hr, PRN oxytocin IV additive 30 units + LR Diluent 500 mL sodium chloride 0.9% flush, 10 mL, IV Flush, As Directed, PRN terbutaline, 0.25 mg= 0.25 mL, Subcutaneous, every 15 min terbutaline, 0.25 mg= 0.25 mL, IV Push, Once Home citalopram 10 mg oral tablet, 10 mg= [...] Employment/School Employed, Work/School description: Full-time, 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 Hospital Course Patient was manage labor delivery and underwent normal??spontaneous vaginal delivery??or first ray laceration.?? Her course was uncomplicated. ??The did require transfer to [facility] due to respiratory issues and for that reason she is discharged on day #1.?? Please refer to delivery note for details Procedures and Treatment Provided over first-degree laceration Physical Exam Vitals & Measurements T:??36.9?C ??(Temporal Artery)?? HR:??65??(Monitored)?? RR:??18?? BP:??107/59?? Pain Score:??3?? Procedure/Surgical History ???Right foot - removal of extra bone (2006)???Adenoidectomy (2002) Social History Alcohol Past, Beer Electronic Cigarette/Vaping Electronic Cigarette Use: Never. 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 Living situation: Home/Independent. Sexual Sexually active: Yes. Substance Use Never Tobacco Never tobacco user Tobacco Use:. Never Smokeless Tobacco use:. Discharge Plan 1.?? - Spontaneous vaginal delivery??O80 2.??Group B Streptococcus carrier??Z22.330 3.??Abnormal glucose tolerance test??R73.09 Orders: Discharge Patient, 05/30/24 3:56:00 EDT, Home Independently All Diagnoses This Visit - Spontaneous vaginal delivery Group B Streptococcus carrier Abnormal glucose tolerance test Patient Discharge Condition Good Discharge Disposition Home dependently Patient Education [facility] - Vaginal or Delivery Post Discharge Instructions (CUSTOM) Follow Up With When Contact Information Kelvin Martinez MD Within 1 to 2 weeks [address] [place] [address] Additional Instructions: Medication Reconciliation Changed omeprazole (omeprazole 20 mg oral delayed release capsule)1 Capsules Oral (given by mouth) every day. ?? Unchanged citalopram (citalopram 10 mg oral tablet)1 tab Oral (given by mouth) every day for 90 Days. Refills: 4. ?? Durable Medical Equipment for Prescription (freestyle freedom lite lancets)4x daily testing. Box of100. Refills: 1. ?? FreeStyle Lite Test Strips (freestyle freedom lite strips)4x daily testing. box of 100. Refills: 1. ?? magnesium glycinate (magnesium glycinate 200 mg oral tablet)1 tab every day. ?? multivitamin, ( Multivitamins)One-a-day womens 28-0.8 &44mg as directed orally.. Electronically Signed on 05/30/2024 03:58 EDT Yfn Tejada MD Patient Care team information Care Team Personnel Name: BEA ALONZO APRN, V Position: No Access Member Role: Primary Care Physician Address: Address: [address] Care Team Related Persons Name: FAHAD TAVERAS Name: FAHAD TAVERASGHTON Address: [address] [id number] [facility]
--- OUTSIDE RECORDS SUMMARY | 2024-10-17 21:11 | XMS_ITS | Encounter Summary ---
Author Organization [facility] Address [facility] [place] [address] Care Team Providers Care Manual Arts Therapy Teacher Name Role Phone Unavailable Primary Care Provider Unavailabl e Encounter Details Date Type Department Care Team (Late st Contact Info) Description 05/30/2024 Lab [place] [address] Yfn Tejada MD [address] [place] [address] Social History Tobacco Use Types Packs/Day Years Used Date Smoking Tobacco: Never Assessed Sex and Gender Information Value Date Recorded Sex Assigned at Not on file Gender Identity Not on file Sexual Orientation Not on file documented as of this encounter Plan of Treatment Not on file documented as of this encounter Procedures Procedure Name Priority Date/Time Associated Diagnosis Comments SURGICAL PATHOLOGY (REQ ENTRY) Routine 05/28/2024 8:33 AM EDT documented in this encounter Results * Surgical Pathology (Req Entry) (05/28/2024 8:33 AM EDT) Case Report Surgical Pathology Report ? Case: [id number] ? Authorizing Provider: ??Yfn Tejada MD ? Collected: ? 05/28/2024 0833 ? Ordering Location: ? Laboratory ? Received: ?05/30/2024 1030 ? Pathologist: ? Bruce Gama MD ? Specimen: ?Placenta, Third Trimester ? 06/04/2024 9:22 AM EDT [facility] Final Diagnosis A. Placenta, Third Trimester Term (40 weeks) placenta, 385 grams: Small placenta; weight less than the 10th percentile for gestation. No maternal acute inflammatory response. Villous maturation appropriate for gestational age. Complete maternal decidual surface. Three vessel umbilical cord with eccentric insertion and no acute inflammatory response. 06/04/2024 9:22 AM EDT [facility] Clinical Information Placenta 06/04/2024 9:22 AM T [facility] Gross Description A. Placenta, Third Trimester, . Labeled/Fixativ e: Placenta, third trimester, formalin. Quantity/Size/W eight: Single, 16.5 x 13.8 x 3.9 cm, 385 g. Integrity: Intact. Shape: Discoid. Membranes: - Insertion: 100% marginal, - Color and Clarity: Riley-leon and opaque. Cord: - Size: 23.0 x 1.1 cm. - Number of Vessels: Three. - Insertion site: Eccentric. Surface: - Color and Clarity: Leon-blue and opaque. Maternal Surface: Intact cotyledons with scattered loosely adherent blood clot and calcifications. Parenchyma: Brown-purple and spongy. Sections/Proces sing: Rail Car Loader sections in 8 cassettes as follows: A1: Membrane roll A2: Proximal and distal cord A3-A5: surface A6-A8: Maternal surface 06/04/2024 9:22 AM EDT [facility] Result Note Routine 06/04/2024 9:22 AM EDT [facility] Tissue PLACENTAL STRUCTURE / Unknown 05/28/2024 8:33 AM EDT 05/30/2024 10:30 AM EDT Yfn Tejada MD PATHOLOGY/CYTOLOGY O RDERABLES Performing Organization Address City/State/[facility] Co de Phone Number [facility] [place] [address] documented in this encounter Visit Diagnoses Not on filedocumented in this encounter
--- OUTSIDE RECORDS SUMMARY | 2024-10-17 21:11 | XMS_ITS | Clinical Summary ---
Author Organization [facility] Address [address] [place] [address] Care Team Providers Care Patient Services Coordinator Name Role Phone Unavailable Primary Care Provider Unavailabl e Social History Tobacco Use Types Packs/Day Years Used Date Smoking Tobacco: Never Assessed Interpersonal Safety Answer Date Record ed Physically Hurt Never 09/08/2020 Verbally Threaten Not on file 09/08/2020 Comments Unknown Sex and Gender Information Value Date Recorded Sex Assigned at Not on file Legal Sex Female 12:02 EDT Gender Identity Not on file Sexual Orientation Not on file Plan of Treatment Health Maintenance Due Date Last Done Comments Hepatitis C Screen 1995 Hepatitis B Vaccine (1 of 3 - 19+ 3-dose series) 06/19 COVID-19 Vaccine (2023- season) 2024
--- OUTSIDE RECORDS SUMMARY | 2024-10-17 21:11 | XMS_ITS | Encounter Summary ---
Author Organization [facility] Address [address] [place] [address] Care Team Providers Care Education Director Name Role Phone Unavailable Primary Care Provider Unavailabl e Encounter Details Date Type Department Care Team (Late st Contact Info) Description 09/24/2020 Lab Requisition [facility] Pathology & Laboratory Medicine - [facility] [address] [place] [address] Outr Resulting Lab, Provider Social History Tobacco [...] Procedure Name Priority Date/Time Associated Diagnosis Comments HIV 1/2 ANTIGEN AND ANTIBODY, 4TH GENERATION Routine 09/23/2020 7:30 EST documented in this encounter Results * HIV 1/2 ANTIGEN AND ANTIBODY, 4TH GENERATION (09/23/2020 7:30 EST) HIV 1 and 2 Antibody/p24 Antigen, 4th Generation Negative Negative 09/25/2020 10:11 EST [facility] Comment: If acute HIV-1 infection is suspected in a high risk ??patient, submit plasma specimen for HIV-1 RNA quantitation test. Fourth Generation assay performed on the Siemens Centaur. Blood VENOUS BLOOD / Unknown 09/23/2020 7:30 EST 09/24/2020 16:22 EST us Provider Outr Resulting Lab IMMUNOLOGY AND SEROL OGY ORDERABLES Final Result Performing Organization Address City/State/[facility] Co de Phone Number [facility] [address] [place] [address] documented in this encounter Visit Diagnoses Not on filedocumented in this encounter
--- OUTSIDE RECORDS SUMMARY | 2024-10-17 21:11 | XMS_ITS | Continuity of Care Document ---
Author Organization [facility] Address [address] [place] [address] Care Team Providers Care Director Medical Writing Name Role Phone BEA ALONZO APRN, V Primary Care Physician Encounter [id number] Date(s): 11/22/23 - 11/22/23 [facility] [address] [place] [address]- [place] Encounter Diagnosis Encounter for supervision of normal in multigravida in second trimester(Discharge Diagnosis) - 11/22/23 Personal history of gestational diabetes(Discharge Diagnosis) - 11/22/23 Encounter for supervision of other normal , second trimester(Final) - Discharge Disposition: Home or Self Care Attending Physician: Shalini Edward APRN Admitting Physician: Shalini Edward APRN Referring Physician: Shalini Edward APRN Assessment and Plan Future Appointments Appointment Date:01/03/2024 02:00:00 PM Scheduled Provider:Shalini Edward APRN Location:[facility] Appointment Type:OB Follow Up Diagnostic Tests Pending * Rubella Antibodies, IgG LC 11/22/23 * HIV Ag/Ab w/ Reflex to Conf 11/22/23 * HBsAg Screen LC 11/22/23 * T pallidum Screening [place] LC 11/22/23 * HCV Antibody [place] to Quant PCR and Genotyping [id number] 11/22/23 Future Scheduled Tests Radiology* US OB Greater [...] 2002 Completed Results Laboratory List Name Date ABO/Rh Echo 11/22/23 ABSC Echo (Antibody Screen Echo) 11/22/23 CBC w/ Diff 11/22/23 Hgb A1c 11/22/23 Automated Diff 11/22/23 Chlamydia trachomatis and Neisseria gono rrhoeae (GeneXpert) 11/22/23 Most recent to oldest [Reference Range]: 1 WBC [4.8-10.8 K/mcL] 12.2 K/mcL *HI* (11/22/23 4:45 PM) RBC [4.20-5.40 Million/mcL] 4.25 Million /mcL (11/22/23 4:45 PM) Neutro Auto [42.2-75.2 %] 82.8 % *HI* (11/22/23 4:45 PM) Lymph Auto [20.5-51.1 %] 11.8 % *LOW* (11/22/23 4:45 PM) [place] Auto [1.7-9.3 %] 4.5 % (11/22/23 4:45 PM) Basophil Auto [0.0-0.8 %] 0.2 % (11/22/23 4:45 PM) Baso Absolute [0.0-0.2 K/mcL] 0.0 K/mcL (11/22/23 4:45 PM) MCV [81.0-99.0 fL] 87.7 fL (11/22/23 4:45 PM) MCHC [32.0-37.0 g/dL] 35.0 g/dL (11/22/23 4:45 PM) Lymph Absolute [1.2-3.4 K/mcL] 1.4 K/mcL (11/22/23 4:45 PM) Hct [37.0-47.0 %] 37.3 % (11/22/23 4:45 PM) [place] Absolute [0.1-0.6 K/mcL] 0.5 K/mcL (11/22/23 4:45 PM) MCH [27.0-31.0 pg] 30.7 pg (11/22/23 4:45 PM) Neutro Absolute [1.4-6.5 K/mcL] 10.1 K/m cL *HI* (11/22/23 4:45 PM) Hgb [12.0-16.0 g/dL] 13.1 g/dL (11/22/23 4:45 PM) MPV [7.4-10.4 fL] 9.7 fL (11/22/23 4:45 PM) Platelets [130-400 K/mcL] 185 K/mcL (11/22/23 4:45 PM) Eos Absolute [0.0-0.2 K/mcL] 0.1 K/mcL (11/22/23 4:45 PM) eAvg Glucose [70-105 mg/dL] 74 mg/dL (11/22/23 4:45 PM) RDW-CV [11.5-14.5 %] 14.0 % (11/22/23 4:45 PM) Hgb A1c Percent [4.0-6.0 %] 4.2 % (11/22/23 4:45 PM) Chlamydia trachomatis DNA -GeneXpert [No t Detected] Not Detected (11/22/23 4:26 PM) Neisseria gonorrhoeae DNA -GeneXpert [No t Detected] Not Detected (11/22/23 4:26 PM) ABO/Rh Echo O POS *Unknown* (11/22/23 4:45 PM) Eos, Auto [0.00-3.00 %] 0.70 % (11/22/23 4:45 PM) ABSC Echo Negative ABSC (11/22/23 4:45 PM) Social History Social History Type Response Smoking Status Smoking tobacco use: Never tobacco user;Never entered on: 11/22/23 Sex Patient Care team information Care Team Personnel Name: BEA ALONZO APRN, V Position: No Access Member Role: Primary Care Physician Address: Address: [address]
--- OUTSIDE RECORDS SUMMARY | 2024-10-17 21:11 | XMS_ITS | Continuity of Care Document ---
Author Organization [facility] Address [address] [place] [id number] Care Team Providers Care Placement Specialist Name Role Phone BEA ALONZO APRN, V Primary Care Physician ( [phone] Encounter [facility] [id number] Date(s): 03/22/24 - 03/22/[address] [address]- [place] Discharge Disposition: Home or Self Care Attending Physician: Shalini Edward APRN Admitting Physician: Shalini Edward APRN Referring Physician: Shalini Edward APRN Allergies, Adverse Reactions, Alerts No Known Medication Allergies Assessment and Plan Future Appointments Appointment Date:04/04/2024 04:00:00 PM Scheduled Provider:Yfn Teajda MD Location:[facility] Appointment Type:OB Follow Up Appointment Date:04/16/2024 04:00:00 PM Scheduled Provider:Yfn Tejada MD Location:[facility] Appointment Type:OB Follow Up Appointment Date:05/02/2024 04:15:00 PM Scheduled Provider:Rod Samuel MD Location:[facility] Appointment Type:OB Follow Up Appointment Date:05/09/2024 04:15:00 PM Scheduled Provider:Shalini Edward APRN Location:[facility] Appointment Type:OB Follow Up Appointment Date:05/16/2024 09:15:00 AM Scheduled Provider:Rod Samuel MD Location:[facility] Appointment Type:OB Follow Up Appointment Date:05/23/2024 08:45:00 AM Scheduled Provider:Yfn Tejada MD Location:[facility] Appointment Type:OB Follow Up Appointment Date:05/30/2024 04:00:00 PM Scheduled Provider:Yfn Tejada MD Location:[facility] Appointment Type:OB Follow Up Future [...] instructions, # 1 EA, 1 Refill(s), Pharmacy: [id number] Start Date: 03/08/24 Status: Ordered freestyle freedom lite strips freestyle freedom lite strips, 4x daily testing. box of 100, Supply, See instructions, # 1 EA, 1 Refill(s), Pharmacy: [id number] Start Date: 03/08/24 Status: Ordered magnesium glycinate [...] Exam Date Time Procedure Performing Provider Status 03/22/24 3:20 PM US OB Follow Up Nita Archibald; Heide (V erified) Notes: (US OB Follow Up) Reason For Exam: growth/CHANA US OB Follow Up EXAM DESCRIPTION: US OB Follow Up 03/22/2024 INDICATION: GROWTH/CHANA TECHNIQUE: Grayscale obstetric ultrasound COMPARISON: 01/03/2024 FINDINGS: Single live intrauterine gestation in breech position with average ultrasound age of 32 weeks 4 days for an ultrasound BRAD of 05/13/2024. This gestational age is greater than expected gestational age of approximately 30 weeks 5 days based on prior study and time interval. BPD: 33 weeks 1 day Head circumference: 34 weeks 0 days Abdominal circumference: 32 weeks 6 days Femur length: 30 weeks 2 days heart rate was 134 beats per minute CHANA is 23 cm. Estimated weight is 1912 g which is the 88th percentile by LMP. IMPRESSION: Single live intrauterine gestation in breech position with average ultrasound age of 32 weeks 4 days for an ultrasound BRAD of 05/13/2024. This gestational age is greater than expected gestational age of approximately 30 weeks 5 days based on prior study and time interval. CHANA is 23 cm. JOB #: [id number] Final Signed by: Yfn Wilcox MD Signed (Electronic Signature): 03/22/2024 4:18 pm Social History Social History Type Response Smoking Status Smoking tobacco use: Never tobacco user;Never entered on: 11/22/23 Sex Patient Care team information Care Team Personnel Name: BEA ALONZO APRN, V Position: No Access Member Role: Primary Care Physician Address: Address: [place] [address]- [place] Care Team Related Persons Name: FAHAD TAVERAS
--- OUTSIDE RECORDS SUMMARY | 2024-10-17 21:11 | XMS_ITS | Encounter Summary ---
Author Organization [facility] Address [address] [place] [address] Care Team Providers Care Cyber Workforce Developer And Manager Name Role Phone Unavailable Primary Care Provider Unavailabl e Encounter Details Date Type Department Care Team (Late st Contact Info) Description 09/24/2020 Lab Requisition [facility] Pathology & Laboratory Medicine - [facility] [address] [place] [address] Outr Resulting Lab, Provider Social History Tobacco [...] Procedure Name Priority Date/Time Associated Diagnosis Comments SYPHILIS SEROLOGY Routine 09/23/2020 7:30 EST RUBELLA IGG ANTIBODY Routine 09/23/2020 7:30 EST documented in this encounter Results * SYPHILIS SEROLOGY (09/23/2020 7:30 EST) Syphilis Serology Negative Negative 09/25/2020 9:43 EST [facility] Blood VENOUS BLOOD / Unknown 09/23/2020 7:30 EST 09/24/2020 16:22 EST us Provider Outr Resulting Lab IMMUNOLOGY AND SEROL OGY ORDERABLES Final Result [facility] [address] [place] [address] * RUBELLA IGG ANTIBODY (09/23/2020 7:30 EST) Rubella IgG Ab Positive See Note 09/25/2020 9:44 EST [facility] Comment:Positive for IgG ant ibodies to Rubella virus. Blood VENOUS BLOOD / Unknown 09/23/2020 7:30 EST 09/24/2020 16:22 EST us Provider Outr Resulting Lab CHEMISTRY & BLOOD GA S ORDERABLES Final Result [facility] [address] [place] [address] documented in this encounter Visit Diagnoses Not on filedocumented in this encounter
--- OUTSIDE RECORDS SUMMARY | 2024-10-17 21:11 | XMS_ITS | Encounter Summary ---
Author Organization [facility] Address [facility] [place] [address] Care Team Providers Care Ladle Patcher Name Role Phone Unavailable Primary Care Provider Unavailabl e Encounter Details Date Type Department Care Team (Late st Contact Info) Description 05/30/2024 [place] [id number] Yoly Lundberg MD [facility] [address] Term of Social History Tobacco Use Types Packs/Day Years Used Date Smoking Tobacco: Never Assessed Sex and Gender Information Value Date Recorded Sex Assigned at Not on file Gender Identity Not on file Sexual Orientation Not on file documented as of this encounter Plan of Treatment Scheduled Orders Name Type Priority Associated Diagnoses Orde r Schedule Surgical Pathology Pathology/Cytolo gy Routine Term of Expected: 05/30/2024, Expires: 05/30/2025 documented as of this encounter Visit Diagnoses Diagnosis Term of Outcome of delivery, single liveborn documented in this encounter
--- OUTSIDE RECORDS SUMMARY | 2024-10-17 21:11 | XMS_ITS | Continuity of Care Document ---
Author Organization [facility] Ambulatory Clinics Address [address] [place] [address] Care Team Providers Care Fuel Technician Name Role Phone BEA ALONZO APRN, V Primary Care Physician Encounter [facility] NBR [id number] Date(s): 06/18/24 - 06/18/24 [facility] Ambulatory Clinics [address] [place], [place] [id number] Encounter Diagnosis Encounter for visit(Discharge Diagnosis) - 06/18/24 - Spontaneous vaginal delivery(Discharge Diagnosis) - 06/18/24 Abnormal glucose tolerance test(Discharge Diagnosis) - 06/18/24 Encounter for routine follow-up(Final) - Other abnormal glucose(Final) - Discharge Disposition: Home or Self Care Attending Physician: Kelvin Martinez MD Admitting Physician: Kelvin Martinez MD Allergies, Adverse Reactions, Alerts No Known Medication Allergies Assessment and Plan Extracted from: Title: Visit Note Author:Kelvin Martinez MD Date:06/18/24 1.??Encounter for visit??Z39.2 2.?? - Spontaneous vaginal delivery??O80 3.??Abnormal glucose tolerance test??R73.09 The patient is doing very well overall. She is physically fine with a normal cardiac exam and tapering/finished lochial flow. She and the baby are bonding well and, as expected, are having mostly good days. ??We??reviewed?? control options. ??She will likely??get a Mirena IUD at her 6 weeks appointment. Future Appointments Future Scheduled Tests Laboratory* .GTT 3 HR OB 100gm 03/05/24 * .GTT 2 HR OB 100gm 03/05/24 * .GTT 1 HR OB 100gm 03/05/24 * .GTT Fasting OB 03/05/24 Immunizations Given and Recorded Vaccine Date Status Refusal Reason tetanus/diphth/pertuss (Tdap) adult/adol 03/05/24 Given Medications citalopram 10 mg oral tablet 10 mg = 1 tab, Oral, Daily, # 90 tab, 4 Refill(s), Pharmacy: [facility], 165.1, cm, 05/02/24 16:11:00 EDT, Height, 64.2, kg, 05/02/24 16:16:00 EDT, Weight Dosing Start Date: 05/02/24 Stop Date: 07/26/25 Status: Ordered freestyle freedom lite lancets freestyle freedom lite lancets, 4x daily testing. Box of 100, Supply, See instructions, # 1 EA, 1 Refill(s), Pharmacy: [facility] Start Date: 03/08/24 Status: Ordered freestyle freedom lite strips freestyle freedom lite strips, 4x daily testing. box of 100, Supply, See instructions, # 1 EA, 1 Refill(s), Pharmacy: [facility] Start Date: 03/08/24 Status: [...] in multigravida in third trimester Confirmed Active Encounter for visit Confirmed Active - Spontaneous vaginal delivery Confirmed Active 1Diet controlled, A1c 4.5 post-delivery. 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 Completed Adenoidectomy 2002 Completed Vital Signs Most recent to oldest [Reference Range]: 1 Blood Pressure [90-140/60-90 mmHg] 122/8 4mmHg (06/18/24 10:11 AM) Mean Arterial Pressure, Cuff [65-140 mmH g] 97 mmHg (06/18/24 10:11 AM) Weight 55.7 kg (06/18/24 10:11 AM) Weight Measured (lbs) 122.797 lb (06/18/24 10:11 AM) Weight Dosing 55.700 kg (06/18/24 10:11 AM) Loa Body Weight Calculated 57 kg (06/18/24 10:11 AM) Height 165.10 cm (06/18/24 10:11 AM) Height/Length Measured (inches) 65 inch (06/18/24 10:11 AM) BSA Measured 1.6 m2 (06/18/24 10:11 AM) Body Mass Index 20.43 kg/m2 (06/18/24 10:11 AM) Social History Social History Type Response Smoking Status Smoking tobacco use: Never tobacco user;Never entered on: 11/22/23 Sex Sex Representation Female (finding) summary Document * Event Display: Summary Document Authored Date: [id number] LOC TAVERAS: 1995 Age: 28 Years LOC TAVERAS: 95 Summary (Date of Report: 06/14/24) (1,0,0,1) Gestation: Hark[place] LMP (from pt. history): -- BRAD: 05/27/2024 BRAD/EGA Method: Last Menstrual Period EGA: Delivered Gestation info at delivery: Baby A : 40 weeks 1 day NITIN LOC L : 95 Antepartum Note Date: 05/16/24 16:55 (38 weeks) By: Rod Samuel MD Hoping for spont labor. Date: 05/09/24 16:27 (37 weeks) By: Shalini Edward APRN [facility] ER today Date: 05/02/24 16:45 (36 weeks) By: Rod Samuel MD US reviewed. Unless FH's change or there are other indications- no further US's needed. Date: 02/02/24 09:54 (23 weeks) By: Yfn Tejada MD GCT next visit. Date: 01/03/24 15:35 (19 weeks) By: MORGAN Thacker today, reviewed report Date: 11/22/23 16:30 (13 weeks) By: MORGAN Thacker/appt nv LOC TAVERAS : 95 Problems (Active Problems Only) (SNOMED CT: 767712007, Onset: 08/21/23) Gestational diabetes mellitus (SNOMED CT: 48763706, Onset: 06/19/21) Comment: Diet controlled, A1c 4.5 post-delivery. (Amy Winn on 09/27/23) Anxiety (SNOMED CT: 58503449, Onset: --) History of gestational diabetes mellitus (SNOMED CT: 3232786207, Onset: --) Normal (SNOMED CT: 594600916, Onset: --) Glucose tolerance test outside reference range (SNOMED CT: 2778737215, Onset: --) size does not accord with dates (SNOMED CT: 711322038, Onset: --) Group B Streptococcus carrier (SNOMED CT: 5445754142, Onset: --) - Spontaneous vaginal delivery (SNOMED CT: 0433916360, Onset: --) LOC TAVERAS : 95 Risk Factors and Genetic Screening All Results Documented Since 08/21/2023 Risk Factors (Current ) Unique Risk Factors: Other: US 04/30 - Growth 40th percentile., Other: Growth 88% - Repeat growth US36-37 weeks., Other: platelets 109, Other: Hx of diet controlled GDM Ethnic Screening Self, Baby's father: Genetic Disorders Screening Baby's Mother - Negative, Baby's Father - Negative: Defect, Cystic Fibrosis, Down Syndrome, Hemophilia, Siva's Chorea, *Mental Retardation, Muscular Dystrophy, Neural Tube, Sickle Cell Disease, Richard Sachs, Thalassemia, Madhav Disease, Congenital Heart Defect, Maternal Metabolic Disorder, Recurrent Preg Loss/Stillbirth *Comments Mental Retardation: pt has one ci=ousin who is delayed LOC TAVERAS : 95 Gestational Age (EGA) and BRAD * Note: EGA calculated as of 06/14/2024 BRAD: 05/27/2024 EGA*: 40 weeks 1 day Type: Authoritative Method Date: 08/21/2023 Method: Last Menstrual Period (08/21/2023) Confirmation: Confirmed Description: -- Comments: -- Entered by: Cheyanne Shields on 11/22/2023 Other BRAD Calculations for this : Method: Ultrasound Method Date: 04/30/2024 BRAD: 05/31/2024 EGA (At Entry): 35 weeks 4 days Type: Non-Authoritative Comments: Vtx, CHANA 14.7, FL measurement listed is smallest of 2 obtained- remainder of measurements reassuring for growth. No further US's necessary. Entered by: Rod Samuel MD on 05/01/2024 Method: Ultrasound Method Date: 03/22/2024 BRAD: 05/13/2024 EGA (At Entry): 32 weeks 4 days Type: Non-Authoritative Comments: Breech presentation, EFW 1912g (4# 3oz), 88th percentile, CHANA 23 cm. Entered by: Shalini Edward APRN on 03/28/2024 Method: Ultrasound Method Date: 01/03/2024 BRAD: 05/26/2024 EGA (At Entry): 19 weeks 3 days Type: Non-Authoritative Comments: normal appearing anatomy Entered by: Shalini Edward APRN on 01/03/2024 LOC TAVERAS: 95 Measurements Pre- Weight: -- Recent Weight Measured: 64.4 kg 05/28/24 (40 weeks) Height/Length Measured: 165.1 cm 05/28/24 (40 weeks) Body Mass Index Measured: 23.63 kg/m2 05/28/24 (40 weeks) LOC TAVERAS: 95 Exam and Notes Date EGMaira FunHt PTL S/S Cervix BP Weight Urine Baby cm Dil Eff(%) Sta mmHg lbs kg Gluc Prot FHR Activity Fet Pres 05/28/24 40w1d -- -- 4 70% -- 142/81 *142... -- -- Baby A = 135bpm *Present pe... -- 05/23/24 39w2d 38 -- -- -- -- 106/70 *142... Negative Trace Baby A = 140 *Present pe... Vertex 05/16/24 38w3d 37 -- -- -- -- 110/68 *140... -- -- Baby A = 140 *Present pe... Vertex 05/09/24 37w3d 36 None -- -- -- 112/70 *141... Negative Trace Baby A = 130 *Present pe... Vertex 05/02/24 36w3d 35 -- -- -- -- 124/76 *141... Negative Negative Baby A = 140 *Present pe... Vertex 04/04/24 32w3d 32 None -- -- -- 102/66 *141... -- -- Baby A = 140 -- -- 03/22/24 30w4d 30 *Abdo.. -- -- -- 112/72 *141... Negative Negative Baby A = 135 *Present pe... Breech 03/05/24 28w0d 25 None -- -- -- 122/76 *142... Negative Negative Baby A = 140 *Present pe... -- 02/02/24 23w3d 24 None -- -- -- 112/80 *138... Negative Trace Baby A = 140 -- -- 01/03/24 19w2d 19 None -- -- -- 120/74 *132... Negative Trace Baby A = 145 -- -- 11/22/23 13w2d 13 None -- -- -- 114/78 *126... Negative Trace Baby A = 160 -- -- Next Visit: +1 weeks from 05/23/2024 * Labor Signs & Symptoms 03/22/2024 Abdominal pain * Weight 05/28/2024 142.002(lbs) 64.4(kg) 05/23/2024 142.002(lbs) 64.4(kg) 05/16/2024 140.238(lbs) 63.6(kg) 05/09/2024 141.120(lbs) 64(kg) 05/02/2024 141.561(lbs) 64.2(kg) 04/04/2024 141.561(lbs) 64.2(kg) 03/22/2024 141.340(lbs) 64.1(kg) 03/05/2024 142.002(lbs) 64.4(kg) 02/02/2024 138.695(lbs) 62.90(kg) 01/03/2024 132.741(lbs) 60.2(kg) 11/22/2023 126.126(lbs) 57.2(kg) * Activity 05/28/2024 Present per patient 05/23/2024 Present per patient 05/16/2024 Present per patient 05/09/2024 Present per patient 05/02/2024 Present per patient 03/22/2024 Present per patient 03/05/2024 Present per patient LOC TAVERAS : 95 Physical Exams Physical Exam Mental Status Level of Consciousness: Alert (05/29/24) Orientation Assessment: Oriented x 4 (05/29/24) Cardiovascular Cardiovascular Symptoms: None (05/29/24) Nail Bed Color: Normal for ethnicity (05/29/24) Capillary Refill: 2 seconds or less (05/29/24) Skin Temperature, Upper Extremities: Warm (05/29/24) Skin Temperature, Lower Extremities: Warm (05/29/24) Heart Rhythm: Regular (05/29/24) Heart Sounds: S1, S2 (05/29/24) Respiratory Respiratory Symptoms: None (05/29/24) Respirations: Unlabored (05/29/24) Respiratory Pattern: Regular (05/29/24) Chest Motion: Symmetrical (05/29/24) Cough: None (05/29/24) Gastrointestinal GI Symptoms: None (05/29/24) Appetite: Good (05/29/24) Nutrition Risk Factors: (05/29/24) Abdomen Description: Rounded (05/29/24) Abdomen Palpation: Tender to palpation (05/29/24) Passing Flatus: Yes (05/29/24) Extremities Edema Edema: None (05/29/24) Integumentary Skin Color General: Usual for ethnicity (05/29/24) Skin Temperature: Warm (05/29/24) Skin Turgor: Elastic (05/29/24) Skin Moisture General: Dry (05/29/24) Skin Integrity: Intact, no abnormalities (05/28/24) Mucous Membrane Color: [place] (05/29/24) LOC TAVERAS : 95 Blood Types and Anti-D Immune Globulin Blood Type and Screen Mother ABO/Rh: O POS Mother Antibody Screen: -- Father of Baby ABO/Rh: -- Father of Baby Antibody Screen: -- Anti-D Immune Globulin Rho(D) Initial Status: -- Rho(D) 28 Week Status: -- Rho(D) Dates Given: -- LOC TAVERAS : 95 Tests and Lab Results Results ending with 'TR' have been keyed in by the practice or interpreted manually. Result Date: Estimated weeks post onset will display next to actual result date. Test Result Date Ref Range Protein Urine Dipstick Trace 11/22/23 (13 weeks) Urine Appearance Urine Dipstick Clear 11/22/23 (13 weeks) Urine Color Urine Dipstick Pale yellow 11/22/23 (13 weeks) Glucose Urine Dipstick Negative 11/22/23 (13 weeks) Baso Absolute 0.0 K/mcL 11/22/23 (13 weeks) (0.0 - 0.2) Lymph Absolute 1.4 K/mcL 11/22/23 ( weeks) (1.2 - 3.4) Cache Absolute 0.5 K/mcL 11/22/23 ( weeks) (0.1 - 0.6) Neutro Absolute (H) 10.1 K/mcL 11/22/23 ( weeks) (1.4 - 6.5) Eos Absolute 0.1 K/mcL 11/22/23 ( weeks) (0.0 - 0.2) Basophil Auto 0.2 % 11/22/23 ( weeks) (0.0 - 0.8) Eos, Auto 0.70 % 11/22/23 ( weeks) (0.00 - 3.00) Lymph Auto (L) 11.8 % 11/22/23 ( weeks) (20.5 - 51.1) Neutro Auto (H) 82.8 % 11/22/23 ( weeks) (42.2 - 75.2) Cache Auto 4.5 % 11/22/23 ( weeks) (1.7 - 9.3) WBC (H) 12.2 K/mcL 11/22/23 (13 weeks) (4.8 - 10.8) RBC 4.25 Million/mcL 11/22/23 (13 weeks) (4.20 - 5.40) MCV 87.7 fL 11/22/23 (13 weeks) (81.0 - 99.0) MCHC 35.0 g/dL 11/22/23 (13 weeks) (32.0 - 37.0) Hct 37.3 % 11/22/23 (13 weeks) (37.0 - 47.0) MCH 30.7 pg 11/22/23 (13 weeks) (27.0 - 31.0) Hgb 13.1 g/dL 11/22/23 (13 weeks) (12.0 - 16.0) MPV 9.7 fL 11/22/23 (13 weeks) (7.4 - 10.4) Platelets 185 K/mcL 11/22/23 (13 weeks) (130 - 400) RDW-CV 14.0 % 11/22/23 (13 weeks) (11.5 - 14.5) eAvg Glucose 74 mg/dL 11/22/23 (13 weeks) (70 - 105) Hgb A1c Percent 4.2 % 11/22/23 (13 weeks) (4.0 - 6.0) Neisseria gonorrhoeae DNA -GeneXpert Not Detected 11/22/23 (13 weeks) Not Detected Chlamydia trachomatis DNA -GeneXpert Not Detected 11/22/23 (13 weeks) Not Detected ABO/Rh Echo (U) O POS 11/22/23 (13 weeks) ABSC Echo Negative ABSC 11/22/23 (13 weeks) Rubella Antibodies, IgG LC (N) 3.06 index 11/22/23 (13 weeks) Immune >0.99 Treponema pallidum Antibodies: LC (N) Non Reactive 11/22/23 (13 weeks) Non Reactive Interpretation 1 LC (N) Comment 11/22/23 (13 weeks) HCV Ab: LC (N) Non Reactive 11/22/23 (13 weeks) Non Reactive Hep B Surf Ag Scr LC (N) Negative 11/22/23 (13 weeks) Negative HIV Scrn 4th Generation wRfx LC (N) Non Reactive 11/22/23 (13 weeks) Non Reactive Urine Appearance Urine Dipstick Clear 01/03/24 (19 weeks) Glucose Urine Dipstick Negative 01/03/24 (19 weeks) Urine Color Urine Dipstick Straw 01/03/24 (19 weeks) Protein Urine Dipstick Trace 01/03/24 (19 weeks) Urine Color Urine Dipstick Pale yellow 02/02/24 (23 weeks) Urine Appearance Urine Dipstick Clear 02/02/24 (23 weeks) Protein Urine Dipstick Trace 02/02/24 (23 weeks) Glucose Urine Dipstick Negative 02/02/24 (23 weeks) Test Result Date Ref Range Hgb (L) 11.9 g/dL 03/05/24 ( weeks) (12.0 - 16.0) MPV 9.4 fL 03/05/24 ( weeks) (7.4 - 10.4) Platelets (L) 109 K/mcL 03/05/24 ( weeks) (130 - 400) RDW-CV (H) 16.5 % 03/05/24 ( weeks) (11.5 - 14.5) RBC (L) 3.63 Million/mcL 03/05/24 ( weeks) (4.20 - 5.40) Hct (L) 33.6 % 03/05/24 ( weeks) (37.0 - 47.0) MCHC 35.5 g/dL 03/05/24 ( weeks) (32.0 - 37.0) MCV 92.6 fL 03/05/24 ( weeks) (81.0 - 99.0) WBC 8.9 K/mcL 03/05/24 ( weeks) (4.8 - 10.8) MCH (H) 32.9 pg 03/05/24 ( weeks) (27.0 - 31.0) Basophil Auto 0.3 % 03/05/24 ( weeks) (0.0 - 0.8) Cache Auto 5.6 % 03/05/24 ( weeks) (1.7 - 9.3) Lymph Auto (L) 16.5 % 03/05/24 ( weeks) (20.5 - 51.1) Neutro Auto (H) 76.9 % 03/05/24 ( weeks) (42.2 - 75.2) Baso Absolute 0.0 K/mcL 03/05/24 ( weeks) (0.0 - 0.2) Eos, Auto 0.70 % 03/05/24 ( weeks) (0.00 - 3.00) Eos Absolute 0.1 K/mcL 03/05/24 (28 weeks) (0.0 - 0.2) Neutro Absolute (H) 6.9 K/mcL 03/05/24 (28 weeks) (1.4 - 6.5) Cache Absolute 0.5 K/mcL 03/05/24 (28 weeks) (0.1 - 0.6) Lymph Absolute 1.5 K/mcL 03/05/24 (28 weeks) (1.2 - 3.4) Gluc 1hr OB (N) 151 03/05/24 (28 weeks) Urine Color Urine Dipstick Dark yellow 03/05/24 (28 weeks) Urine Appearance Urine Dipstick Clear 03/05/24 (28 weeks) Glucose Urine Dipstick Negative 03/05/24 (28 weeks) Protein Urine Dipstick Negative 03/05/24 (28 weeks) Test Result Date Ref Range Urine Appearance Urine Dipstick Clear 03/22/24 (30 weeks) Protein Urine Dipstick Negative 03/22/24 (30 weeks) Glucose Urine Dipstick Negative 03/22/24 (30 weeks) Urine Color Urine Dipstick Yellow 03/22/24 (30 weeks) Protein Urine Dipstick Negative 05/02/24 (36 weeks) Urine Color Urine Dipstick Yellow 05/02/24 (36 weeks) Urine Appearance Urine Dipstick Clear 05/02/24 (36 weeks) Glucose Urine Dipstick Negative 05/02/24 (36 weeks) Urine Appearance Urine Dipstick Clear 05/09/24 (37 weeks) Glucose Urine Dipstick Negative 05/09/24 (37 weeks) Urine Color Urine Dipstick Dark yellow 05/09/24 (37 weeks) Protein Urine Dipstick Trace 05/09/24 (37 weeks) Group B Strep (GeneXpert) (A) Positive 05/09/24 (37 weeks) Negative Protein Urine Dipstick Trace 05/23/24 (39 weeks) Urine Appearance Urine Dipstick Clear 05/23/24 (39 weeks) Glucose Urine Dipstick Negative 05/23/24 (39 weeks) Urine Color Urine Dipstick Yellow 05/23/24 (39 weeks) Hgb 12.3 g/dL 05/28/24 (40 weeks) (12.0 - 16.0) Slide Review Morph Only 05/28/24 (40 weeks) MCH (H) 31.9 pg 05/28/24 (40 weeks) (27.0 - 31.0) MPV (H) 10.5 fL 05/28/24 (40 weeks) (7.4 - 10.4) Platelets (L) 118 K/mcL 05/28/24 (40 weeks) (130 - 400) MCHC 35.2 g/dL 05/28/24 (40 weeks) (32.0 - 37.0) RBC (L) 3.85 Million/mcL 05/28/24 (40 weeks) (4.20 - 5.40) WBC 10.5 K/mcL 05/28/24 (40 weeks) (4.8 - 10.8) MCV 90.7 fL 05/28/24 (40 weeks) (81.0 - 99.0) RDW-CV (H) 19.5 % 05/28/24 (40 weeks) (11.5 - 14.5) Hct (L) 34.9 % 05/28/24 (40 weeks) (37.0 - 47.0) Neutro Absolute (H) 7.7 K/mcL 05/28/24 (40 weeks) (1.4 - 6.5) Lymph Absolute 2.0 K/mcL 05/28/24 (40 weeks) (1.2 - 3.4) Baso Absolute 0.00 K/mcL 05/28/24 (40 weeks) (0.00 - 0.20) Basophil Auto 0.3 % 05/28/24 (40 weeks) (0.0 - 0.8) Cache Auto 6.2 % 05/28/24 (40 weeks) (1.7 - 9.3) Lymph Auto (L) 19.2 % 05/28/24 (40 weeks) (20.5 - 51.1) Neutro Auto 73.5 % 05/28/24 (40 weeks) (42.2 - 75.2) Cache Absolute (H) 0.7 K/mcL 05/28/24 (40 weeks) (0.1 - 0.6) Eos, Auto 0.80 % 05/28/24 (40 weeks) (0.00 - 3.00) Eos Absolute 0.1 K/mcL 05/28/24 (40 weeks) (0.0 - 0.2) Anisocyte 2+ 05/28/24 (40 weeks) Microcyte (A) 1+ 05/28/24 (40 weeks) Plt Estimation (A) Decreased 05/28/24 (40 weeks) RBC Morph (A) Abnormal 05/28/24 (40 weeks) Normal Plt Large (A) Few 05/28/24 (40 weeks) Amnisure ROM (A) Positive 05/28/24 (40 weeks) Negative ABO/Rh Type (U) O POS 05/28/24 (40 weeks) Antibody Screen Gel Negative ABSC 05/28/24 (40 weeks) Treponema pallidum Antibodies: LC (N) Non Reactive 05/28/24 (40 weeks) Non Reactive LOC TAVERAS: 95 Actions No Actions have been documented. LOC TAVERAS: 95 Situational Awareness No comments have been documented. LOC TAVERAS : 95 Allergies (Active and Proposed Allergies Only) No Known Medication Allergies (Severity: Unknown severity, Onset: Unknown) LOC TAVERAS : 95 Medications Prescriptions and Home Medications Currently Active or Taking citalopram 10 mg oral tablet SI mg = 1 tab, Oral, Daily, for 90 days, 90 tab, 4 Refill(s) Ordered: 05/02/24 Provider: Rod Samuel MD freestyle freedom lite lancets SIG: See instructions, 4x daily testing. Box of 100, 1 EA, 1 Refill(s) Ordered: 03/08/24 Provider: Shalini Edward APRN freestyle freedom lite strips SIG: See instructions, 4x daily testing. box of 100, 1 EA, 1 Refill(s) Ordered: 03/08/24 Provider: Shalini Edward APRN magnesium glycinate 200 mg oral tablet (Historically recorded) SI mg = 1 tab, Daily, 0 Refill(s) Ordered: 01/03/24 Provider: -- omeprazole 20 mg oral delayed release capsule (Historically recorded) SI mg = 1 cap, Oral, Daily, 0 Refill(s) Ordered: 03/05/24 Provider: -- Multivitamins (Historically recorded) SIG: One-a-day womens 28-0.8 &44mg as directed orally., 0 Refill(s) Ordered: 09/27/23 Provider: -- Inactive or Suspended (Prescriptions and documented medications since 05/21/23) Dexcom 6 monitor SIG: See instructions, Pt would like to see cost without PA, 1 EA, 0 Refill(s) Status: Discontinued Ordered: 03/08/24 Provider: Shalini Edward APRN Dexcom 6 overlock collar setter SIG: See instructions, Pt would like to see cost without PA, 1 EA, 0 Refill(s) Status: Discontinued Ordered: 03/08/24 Provider: Shalini Edward APRN Dexcom 6 sensor SIG: See instructions, Pt would like to see cost without PA, 1 EA, 0 Refill(s) Status: Discontinued Ordered: 03/08/24 Provider: Shalini Edward APRN Dexcom 6 transmitter SIG: See instructions, Pt would like to see cost without PA, 1 EA, 0 Refill(s) Status: Discontinued Ordered: 03/08/24 Provider: Shalini Edward APRN escitalopram 10 mg oral tablet (Historically recorded) SI mg = 1 tab, Oral, Daily, 30 tab, 0 Refill(s) Status: Completed Ordered: 09/27/23 Provider: -- ferrous sulfate 325 mg (65 mg elemental iron) oral tablet (Historically recorded) SI mg = 1 tab, Oral, Daily, 90 tab, 0 Refill(s) Status: Completed Ordered: 09/27/23 Provider: -- levonorgestrel-ethinyl estradiol oral tablet (Historically recorded) SI tab, Oral, Daily, for 91 days, Levonorgestrel-ethinyl estrad 0.1-20mg-mcg tablet (levonorgestrel-ethinyl estrad) take 1 tablet by mouth once a day for contraception., 0 Refill(s) Status: Discontinued Ordered: 09/27/23 Provider: -- Medication Administrations In-Office/Hospital (All in-office/hospital administrated medications ordered since 05/21/23) ampicillin 1 g = 1 EA, 100 mL/hr, IV Piggyback, every 4 hr Status: Canceled Ordered: 05/28/24 Provider: Kelvin Martinez MD Adacel (Tdap) (tetanus/diphth/pertuss (Tdap) adult/adol) 0.5 mL, Intramuscular, Once Status: Completed Ordered: 03/05/24 Provider: Kelvin Martinez MD ampicillin 2 g = 1 EA, N/A, Once Status: Completed Ordered: 05/28/24 Provider: BandarUser, Generated ampicillin 2 g = 1 EA, 200 mL/hr, IV Piggyback, Once Status: Completed Ordered: 05/28/24 Provider: Kelvin Martinez MD lidocaine 1% (lidocaine) 20 mL, N/A, Once Status: Completed Ordered: 05/28/24 Provider: BandarUser, Generated lidocaine 1% injectable solution (lidocaine 1% 20 mL Vial [LTTL]) 20 mL, Infiltration, Once Status: Completed Ordered: 05/28/24 Provider: Kelvin Martinez MD Methergine (methylergonovine 0.2 mg/1 mL Vial [LTTL]) 0.2 mg = 1 mL, Intramuscular, Once Status: Completed Ordered: 05/28/24 Provider: Kelvin Martinze MD mineral oil 100% (mineral oil) 30 mL, N/A, Once Status: Completed Ordered: 05/28/24 Provider: DomainUser, Generated oxytocin 10 units = 1 mL, N/A, Once Status: Completed Ordered: 05/28/24 Provider: DomainUser, Generated oxytocin 10 units = 1 mL, N/A, Once Status: Completed Ordered: 05/28/24 Provider: DomainUser, Generated Sodium Chloride 0.9% 100 mL, N/A, Once Status: Completed Ordered: 05/28/24 Provider: DomainUser, Generated terbutaline (terbutaline 1 mg/1 mL Vial [LTTL]) 0.25 mg = 0.25 mL, Subcutaneous, every 15 min Status: Completed Ordered: 05/28/24 Provider: Kelvin Martinez MD acetaminophen (acetaminophen 325 mg Tab [LTTL]) 650 mg = 2 tab, Oral, every 4 hr, PRN: pain, mild Status: Discontinued Ordered: 05/28/24 Provider: Kelvin Martinez MD ampicillin 2 g = 1 EA, IV Piggyback, Once Status: Discontinued Ordered: 05/28/24 Provider: Kelvin Martinez MD ampicillin 1 g = 1 EA, IV Piggyback, every 4 hr Status: Discontinued Ordered: 05/28/24 Provider: Kelvin Martinez MD benzocaine-menthol 20%-0.5% topical spray (benzocaine-menthol 20-0.5% topical [place] [LTTL]) 1 chetan, Topical, As Directed, PRN: other (see comment) Status: Discontinued Ordered: 05/28/24 Provider: Kelvin Martinez MD calcium (as carbonate) 500 mg oral tablet (calcium carbonate 500 mg Chew Tab (Tums) [LTTL]) 500 mg = 1 tab, Oral, every 2 hr, PRN: dyspepsia Status: Discontinued Ordered: 05/28/24 Provider: Kelvin Martinez MD calcium (as carbonate) 500 mg oral tablet (calcium carbonate 500 mg Chew Tab (Tums) [LTTL]) 1,000 mg = 2 tab, Oral, every 2 hr, PRN: dyspepsia Status: Discontinued Ordered: 05/28/24 Provider: Kelvin Martinez MD docusate-senna 50 mg-8.6 mg oral tablet (docusate-senna 50 mg-8.6 mg Tab [LTTL]) 1 tab, Oral, BID, PRN: constipation Status: Discontinued Ordered: 05/28/24 Provider: Kelvin Martinez MD ferrous sulfate (Ferrous Sulfate 325 mg Tab [LTTL]) 325 mg = 1 tab, Oral, Daily Status: Discontinued Ordered: 05/28/24 Provider: Kelvin Martinez MD ibuprofen (Ibuprofen 600 mg Tab [LTTL]) 600 mg = 1 tab, Oral, every 4 hr, PRN: pain, mild Status: Discontinued Ordered: 05/28/24 Provider: Kelvin Martinez MD iron sucrose 200 mg = 10 mL, 220 mL/hr, IV Piggyback, Once, PRN: other (see comment) Status: Discontinued Ordered: 05/28/24 Provider: Kelvin Martinez MD Lactated Ringers Injection 1,000 mL (Lactated Ringers 1,000 mL) 150 mL/hr, IV Status: Discontinued Ordered: 05/28/24 Provider: Kelvin Martinez MD Lactated Ringers Injection 1,000 mL (Lactated Ringers 1,000 mL) 150 mL/hr, IV Status: Discontinued Ordered: 05/28/24 Provider: Kelvin Martinez MD methylergonovine (methylergonovine 0.2 mg/1 mL Vial [LTTL]) 0.2 mg = 1 mL, Intramuscular, Once, PRN: other (see comment) Status: Discontinued Ordered: 05/28/24 Provider: Kelvin Martinez MD miSOPROStol (miSOPROStol 200 mcg Tab [LTTL]) 1,000 mcg = 5 tab, Rectal, Once, PRN: bleeding Status: Discontinued Ordered: 05/28/24 Provider: Kelvin Martinez MD multivitamin, ( multivitamin [LTTL]) 1 tab, Oral, Daily Status: Discontinued Ordered: 05/28/24 Provider: Kelvin Martinez MD naloxone (naloxone 0.4 mg/1 mL Vial [LTTL]) 0.1 mg = 0.25 mL, IV Push, every 5 min, PRN: other (see comment) Status: Discontinued Ordered: 05/28/24 Provider: Kelvin Martinez MD ondansetron (ondansetron 2 mg/mL 2 mL Vial [LTTL]) 4 mg = 2 mL, zofran, IV Push, every 6 hr, PRN: nausea/vomiting Status: Discontinued Ordered: 05/28/24 Provider: Kelvin Martinez MD oxytocin (oxytocin 10 units/1 mL Vial [LTTL]) 10 units = 1 mL, Intramuscular, Once, PRN: other (see comment) Status: Discontinued Ordered: 05/28/24 Provider: Kelvin Martinez MD oxytocin IV additive 10 units + LR Diluent 1,000 mL (oxytocin 10 units + Lactated Ringers 1,000 mL) Titrate per protocol, IV Status: Discontinued Ordered: 05/28/24 Provider: Kelvin Martinez MD oxytocin IV additive 20 units + LR Diluent 1,000 mL (oxytocin 20 units + Lactated Ringers 1,000 mL) Titrate Per Protocol, IV, Stop: 06/28/24 1:37:00 EDT Status: Discontinued Ordered: 05/29/24 Provider: Kelvin Martinez MD oxytocin IV additive 30 units + LR Diluent 500 mL (oxytocin 30 units + Lactated Ringers 500 mL) Titrate Per Protocol, IV Status: Discontinued Ordered: 05/28/24 Provider: Kelvin Martinez MD simethicone (simethicone 80 mg Chew Tab [LTTL]) 80 mg = 1 tab, Oral, As Directed, PRN: gas Status: Discontinued Ordered: 05/28/24 Provider: Kelvin Martinez MD sodium chloride 0.9% flush (sodium chloride 0.9% Flush 10 mL [LTTL]) 10 mL, IV Flush, As Directed, PRN: other (see comment) Status: Discontinued Ordered: 05/28/24 Provider: Kelvin Martinez MD sodium chloride 0.9% flush (sodium chloride 0.9% Flush 10 mL [LTTL]) 10 mL, IV Flush, As Directed, PRN: other (see comment) Status: Discontinued Ordered: 05/28/24 Provider: Kelvin Martinez MD terbutaline (terbutaline 1 mg/1 mL Vial [LTTL]) 0.25 mg = 0.25 mL, IV Push, Once Status: Discontinued Ordered: 05/28/24 Provider: Kelvin Martinez MD tranexamic acid 1,000 mg = 100 mL, 300 mL/hr, IV Piggyback, Once, PRN: bleeding Status: Discontinued Ordered: 05/28/24 Provider: Kelvin Martinez MD witch dagoberto 50% rectal pad (Witch Dagoberto 50% Top Pad [LTTL]) 1 chetan, Topical, As Directed, PRN: other (see comment) Status: Discontinued Ordered: 05/28/24 Provider: Kelvin Martinez MD LOC TAVERAS: 95 Immunizations tetanus/diphth/pertuss (Tdap) adult/adol 03/05/24 (25 weeks) LOC TAVERAS : 95 Menstrual History Last Recorded Menstrual Period: -- Last Menstrual Period Description: -- Menarche Onset: 13 years Menarche Frequency: -- Menarche Length: -- Date of Menses Prior to LMP: -- On Hormonal Contracept within 2 months of LMP: -- Date of Home Test: -- Comments: -- LOC TAVERAS : 95 History (1,0,0,1) # 1 Baby 1 Outcome Date: 04/06/2021 Outcome or Result: Vaginal Gest Age: 40 weeks 2 days Outcome: Live Sex: Female Wt: 3629 g Child's Name: [facility]: [facility] Comment: gestational diabetes, diet controlled LOC TAVERAS : 95 Medical History Past Medical History No active past medical history has been recorded Family History Father (Name not documented, Alive) Hypercholesterolemia Hypertension Mother (Name not documented, Alive) Cancer Brother (Name not documented, Alive) Other Grandfather (M) (Name not documented, Alive) Cancer Grandfather (P) (Name not documented, Alive) Hypertension Aunt/Uncle (Maternal Uncle, Alive) Other Aunt/Uncle (Maternal Aunt, Alive) Other Daughter (Jerica, Alive) Healthy child Procedure or Surgical History Delivery of Products of Conception, External Approach Age: 28 Years Date: 05/28/2024 Repair Perineum Skin, External Approach Age: 28 Years Date: 05/28/2024 Surgery Age: 11 Years Date: 2006 Adenoidectomy Age: 7 Years Date: 2002 LOC TAVERAS : 95 Social & Psychosocial History Social History Alcohol Past, Beer Employment/School Employed, Work/School description: Full-time, RN at [employer].. Exercise Comment: no regular exercise (11/22/2023 15:53 - Cheyanne Shields) Home/Environment Lives with Children, Spouse. Living situation: Home/Independent. Sexual Sexually active: Yes. Substance Abuse Never Tobacco Never tobacco user Tobacco Use:. Never Smokeless Tobacco use:. Electronic Cigarette/Vaping Electronic Cigarette Use: Never. Psychosocial History No active psychosocial history has been recorded LOC TAVERAS: 95 Infection History Infection history negative or not recorded LOC TAVERAS: 95 Anesthesia and Transfusions Prior Anesthesia or Transfusion Received: Prior general anesthesia, No prior transfusion Prior Anesthesia Reaction(s): Vomiting Prior Transfusion Reaction(s): -- Blood Transfusion Acceptable to Patient: -- LOC TAVERAS DOB: [birth year] Plan and Patient Requests Desired Delivery Location: -- Education: -- Written Plan: -- Written Plan Location: -- Support Person/Dial Buffer Relationship to Pt: -- Oral Intake OB: -- Labor Preferences: -- Non-Medicinal Pain Relief: -- Anesthesia/Pain Medication During Labor: -- Delivery Plan: -- Feeding: -- Circumcision: Before discharge Baby For Adoption: -- Patient Requests: -- Father of the Baby's Name: -- Rn Residential Selected: -- Surrogate : -- Support Person's Name: -- LOC TAVERAS : 95 Education Educational Materials/Leaflets Provided Title/Topic Date Provided [facility] - Vaginal or Delivery Post Discharge Instructions 05/30/24 L&D Patient Education Plan of Care: Verbalizes understanding (05/29/24 - Mary Rivera) Ultrasound: Verbalizes understanding (11/22/23 - Shalini Edward APRN) Weight Gain: Verbalizes understanding (11/22/23 - Shalini Edward APRN) Patient Education Plan of Care: Verbalizes understanding (05/29/24 - Mary Rivera) LOC TAVERAS : 95 Registration and Information Race: White Ethnicity: Not , , or Greek Origin Marital Status: Single Language(s): [employer] Preference(s): None/No Preference Occupation/Education: Address, Phone, and Health Plans Home Address: [facility] [place], [place] [id number] (Home), , -- Health Plans: 1 - [employer] Member/Group: [id number] Deductible: $ -- Type: [facility] Address: [address] [address] 2 - [employer] Member/Group: [id number] Deductible: $ -- Type: [facility] Address: [address] [address] 3 - [facility] Member/Group: -- Deductible: $ -- Type: Commercial Address: [address], [place] [address] 4 - [facility] Member/Group: -- Deductible: $ -- Type: Commercial Address: [facility] [id number], [place] [address] General Information OB Provider(s) Information: Not explicitly recorded. May be noted in encounter section below. See below for detailed information for all visits and information. Delivery Center/Hospital Information: -- [place] Provider Information: -- Referring Provider Information: Yfn Tejada MD Primary Provider Information: BEA ALONZO APRN, V /Partner Information: -- -- Support Person Information: -- Planned/Unplanned : -- Date Consent Signed for Tubal Ligation: -- Date Record Sent to Hospital: -- LOC TAVERAS : 95 Visits and Encounters (Known encounters since 08/21/2023. May include lab encounters.) Date Location Provider Type Medical Service 07/08/2024 [facility] Kelvin Martinez MD [facility] 06/18/2024 [facility] Kelvin Martinez MD [facility] 05/30/2024 [facility] -- Clinic [facility] 05/28/2024 Maira Martinez MD Inpatient Inpatient 05/23/2024 4 Yfn Tejada MD Clinic Clinic 05/16/2024 1 Rod Samuel MD Clinic Clinic 05/09/2024 [facility] Shalini Edward APRN Outpatient Lab 05/09/2024 [facility] Shalini Edward APRN Clinic Clinic 05/02/2024 2 Rod Samuel MD Clinic Clinic 04/30/2024 [facility] Yfn Tejada MD Outpatient 04/16/2024 [facility] -- Clinic [facility] 04/16/2024 [facility] Yfn Tejada MD Clinic Clinic 04/05/2024 [facility] -- Between Visit -- 04/04/2024 6 Yfn Tejada MD Clinic Clinic 03/26/2024 [facility] -- Between Visit -- 03/22/2024 T2 Kelvin Martinez MD Clinic Clinic 03/22/2024 [facility] Edward APRN Outpatient 03/07/2024 [facility] -- Between Visit -- 03/06/2024 [facility] -- Between Visit -- 03/05/2024 [facility] -- Between Visit -- 03/05/2024 [facility] Shalini Edward APRN Outpatient Lab 03/05/2024 [facility] Shalini Edward APRN Clinic Clinic 02/02/2024 6 Yfn Tejada MD Clinic Clinic 01/22/2024 [facility] -- Between Visit -- 01/04/2024 [facility] -- Between Visit -- 01/03/2024 [facility] Shalini Edward, [employer] SAL[employer] REPRESENTATIVE Outpatient Lab 01/03/2024 [facility] Shalini Edward, [facility] 01/03/2024 [facility] Shalini Edward, [facility] Outpatient US 12/11/2023 [facility] -- Between Visit -- 11/22/2023 [facility] Shalini Edward, [facility] Outpatient Lab 11/22/2023 [facility] Shalini Edward, [facility] 09/29/2023 [facility] Yfn Tejada MD [facility] LOC TAVERAS : 95 Visit / Encounter Location Information The following information represents known location and contact information for locations visitedduring [facility] Ambulatory Clinics Business Address: [address] [place] [address] Phone:[phone] ([employer]) [facility] Business Address: [address] [place] [address] Phone: No phone numbers found on file for location [facility] [place] : 95 Visit Diagnosis (Note: All diagnoses documented since 08/21/2023) 05/28/24 - 40 weeks gestation of (ICD-10-CM: Z3A.40, Date: ) 05/28/24 - Other abnormal glucose (ICD-10-CM: R73.09, Date: ) 05/28/24 - Anxiety disorder, unspecified (ICD-10-CM: F41.9, Date: ) 05/28/24 - Other mental disorders complicating childbirth (ICD-10-CM: O99.344, Date: ) 05/28/24 - Post-term (ICD-10-CM: O48.0, Date: ) 05/28/24 - First degree perineal laceration during delivery (ICD-10-CM: O70.0, Date: ) 05/28/24 - Single live (ICD-10-CM: Z37.0, Date: ) 05/28/24 - Streptococcus B carrier state complicating childbirth (ICD-10-CM: O99.824, Date: ) 05/28/24 - Encounter for supervision of other normal , third trimester (ICD-10-CM: Z34.83,Date: ) 05/28/24 - Other abnormal glucose (ICD-10-CM: R73.09, Date: 05/28/24) 05/28/24 - Carrier of Group B streptococcus (ICD-10-CM: Z22.330, Date: 05/28/24) 05/28/24 - Encounter for full-term uncomplicated delivery (ICD-10-CM: O80, Date: 05/28/24) 05/23/24 - Gestational diabetes mellitus in , diet controlled (ICD-10-CM: O24.410, Date: ) 05/23/24 - 39 weeks gestation of (ICD-10-CM: Z3A.39, Date: ) 05/23/24 - Gestational diabetes mellitus in , diet controlled (ICD-10-CM: O24.410, Date: ) 05/23/24 - Gestational diabetes mellitus in , diet controlled (ICD-10-CM: O24.410, Date: 05/23/24) 05/23/24 - Encounter for supervision of other normal , third trimester (ICD-10-CM: Z34.83,Date: 05/23/24) 05/16/24 - Gestational diabetes mellitus in , diet controlled (ICD-10-CM: O24.410, Date: ) 05/16/24 - 38 weeks gestation of (ICD-10-CM: Z3A.38, Date: ) 05/16/24 - Gestational diabetes mellitus in , diet controlled (ICD-10-CM: O24.410, Date: ) 05/16/24 - Gestational diabetes mellitus in , diet controlled (ICD-10-CM: O24.410, Date: 05/16/24) 05/16/24 - Encounter for supervision of other normal , third trimester (ICD-10-CM: Z34.83,Date: 05/16/24) 05/09/24 - Other maternal infectious and parasitic diseases complicating , third trimester(ICD-10-CM: O98.813, Date: ) 05/09/24 - Streptococcus, group B, as the cause of diseases classified elsewhere (ICD-10-CM: B95.1,Date: ) 05/09/24 - Other maternal infectious and parasitic diseases complicating , third trimester(ICD-10-CM: O98.813, Date: ) 05/09/24 - Encounter for supervision of other normal , third trimester (ICD-10-CM: Z34.83,Date: 05/09/24) 05/09/24 - Encounter for supervision of other normal , third trimester (ICD-10-CM: Z34.83,Date: ) 05/09/24 - 37 weeks gestation of (ICD-10-CM: Z3A.37, Date: ) 05/09/24 - Encounter for supervision of other normal , third trimester (ICD-10-CM: Z34.83,Date: ) 05/09/24 - Encounter for supervision of other normal , third trimester (ICD-10-CM: Z34.83,Date: 05/09/24) 05/02/24 - Gestational diabetes mellitus in , unspecified control (ICD-10-CM: O24.419, Date: ) 05/02/24 - 36 weeks gestation of (ICD-10-CM: Z3A.36, Date: ) 05/02/24 - Gestational diabetes mellitus in , unspecified control (ICD-10-CM: O24.419, Date: ) 05/02/24 - Gestational diabetes mellitus in , unspecified control (ICD-10-CM: O24.419, Date: 05/02/24) 05/02/24 - Encounter for supervision of other normal , third trimester (ICD-10-CM: Z34.83,Date: 05/02/24) 04/30/24 - Other abnormal glucose (ICD-10-CM: R73.09, Date: ) 04/30/24 - Other abnormal glucose (ICD-10-CM: R73.09, Date: ) 04/30/24 - Other abnormal glucose (ICD-10-CM: R73.09, Date: ) 04/16/24 - Abnormal glucose complicating (ICD-10-CM: O99.810, Date: ) 04/16/24 - 34 weeks gestation of (ICD-10-CM: Z3A.34, Date: ) 04/16/24 - Abnormal glucose complicating (ICD-10-CM: O99.810, Date: ) 04/16/24 - Other abnormal glucose (ICD-10-CM: R73.09, Date: 04/16/24) 04/16/24 - Encounter for supervision of other normal , third trimester (ICD-10-CM: Z34.83,Date: 04/16/24) 04/04/24 - Abnormal glucose complicating (ICD-10-CM: O99.810, Date: ) 04/04/24 - 32 weeks gestation of (ICD-10-CM: Z3A.32, Date: ) 04/04/24 - Abnormal glucose complicating (ICD-10-CM: O99.810, Date: ) 04/04/24 - Other abnormal glucose (ICD-10-CM: R73.09, Date: 04/04/24) 04/04/24 - Encounter for supervision of other normal , third trimester (ICD-10-CM: Z34.83,Date: 04/04/24) 03/22/24 - Abnormal glucose complicating (ICD-10-CM: O99.810, Date: ) 03/22/24 - 30 weeks gestation of (ICD-10-CM: Z3A.30, Date: ) 03/22/24 - Abnormal glucose complicating (ICD-10-CM: O99.810, Date: ) 03/22/24 - Other abnormal glucose (ICD-10-CM: R73.09, Date: 03/22/24) 03/22/24 - Encounter for supervision of other normal , third trimester (ICD-10-CM: Z34.83,Date: 03/22/24) 03/22/24 - Uterine size-date discrepancy, third trimester (ICD-10-CM: O26.843, Date: ) 03/22/24 - Uterine size-date discrepancy, third trimester (ICD-10-CM: O26.843, Date: ) 03/22/24 - Uterine size-date discrepancy, third trimester (ICD-10-CM: O26.843, Date: ) 03/05/24 - Encounter for supervision of other normal , third trimester (ICD-10-CM: Z34.83,Date: ) 03/05/24 - Weeks of gestation of not specified (ICD-10-CM: Z3A.00, Date: ) 03/05/24 - Encounter for supervision of other normal , third trimester (ICD-10-CM: Z34.83,Date: 03/05/24) 03/05/24 - Encounter for supervision of other normal , third trimester (ICD-10-CM: Z34.83,Date: 03/05/24) 03/05/24 - Abnormal glucose complicating (ICD-10-CM: O99.810, Date: ) 03/05/24 - Encounter for immunization (ICD-10-CM: Z23, Date: ) 03/05/24 - 28 weeks gestation of (ICD-10-CM: Z3A.28, Date: ) 03/05/24 - Uterine size-date discrepancy, third trimester (ICD-10-CM: O26.843, Date: ) 03/05/24 - Abnormal glucose complicating (ICD-10-CM: O99.810, Date: ) 03/05/24 - Encounter for immunization (ICD-10-CM: Z23, Date: 03/05/24) 03/05/24 - Uterine size-date discrepancy, third trimester (ICD-10-CM: O26.843, Date: 03/05/24) 03/05/24 - Other abnormal glucose (ICD-10-CM: R73.09, Date: 03/05/24) 03/05/24 - Encounter for supervision of other normal , third trimester (ICD-10-CM: Z34.83,Date: 03/05/24) 02/02/24 - Encounter for supervision of other normal , second trimester (ICD-10-CM: Z34.82, Date: ) 02/02/24 - 23 weeks gestation of (ICD-10-CM: Z3A.23, Date: ) 02/02/24 - Encounter for supervision of other normal , second trimester (ICD-10-CM: Z34.82, Date: ) 02/02/24 - Encounter for supervision of other normal , second trimester (ICD-10-CM: Z34.82, Date: 02/02/24) 01/03/24 - Encounter for supervision of other normal , second trimester (ICD-10-CM: Z34.82, Date: ) 01/03/24 - Weeks of gestation of not specified (ICD-10-CM: Z3A.00, Date: ) 01/03/24 - Encounter for supervision of other normal , second trimester (ICD-10-CM: Z34.82, Date: 01/03/24) 01/03/24 - Encounter for supervision of other normal , second trimester (ICD-10-CM: Z34.82, Date: ) 01/03/24 - 19 weeks gestation of (ICD-10-CM: Z3A.19, Date: ) 01/03/24 - Encounter for supervision of other normal , second trimester (ICD-10-CM: Z34.82, Date: ) 01/03/24 - Encounter for supervision of other normal , second trimester (ICD-10-CM: Z34.82, Date: 01/03/24) 01/03/24 - Encounter for supervision of other normal , second trimester (ICD-10-CM: Z34.82, Date: ) 01/03/24 - Encounter for supervision of other normal , second trimester (ICD-10-CM: Z34.82, Date: ) 01/03/24 - Encounter for supervision of other normal , second trimester (ICD-10-CM: Z34.82, Date: ) 11/22/23 - Encounter for supervision of other normal , second trimester (ICD-10-CM: Z34.82, Date: ) 11/22/23 - Encounter for supervision of other normal , second trimester (ICD-10-CM: Z34.82, Date: ) 11/22/23 - Encounter for supervision of other normal , second trimester (ICD-10-CM: Z34.82, Date: ) 11/22/23 - Supervision of with other poor reproductive or obstetric history, unspecified trimester (ICD-10-CM: O09.299, Date: 11/22/23) 11/22/23 - Personal history of gestational diabetes (ICD-10-CM: Z86.32, Date: 11/22/23) 11/22/23 - Encounter for supervision of other normal , second trimester (ICD-10-CM: Z34.82, Date: 11/22/23) 11/22/23 - Supervision of with other poor reproductive or obstetric history, first trimester (ICD-10-CM: O09.291, Date: ) 11/22/23 - 13 weeks gestation of (ICD-10-CM: Z3A.13, Date: ) 11/22/23 - Personal history of gestational diabetes (ICD-10-CM: Z86.32, Date: ) 11/22/23 - Supervision of with other poor reproductive or obstetric history, first trimester (ICD-10-CM: O09.291, Date: ) 11/22/23 - Personal history of gestational diabetes (ICD-10-CM: Z86.32, Date: 11/22/23) 11/22/23 - Supervision of with other poor reproductive or obstetric history, unspecified trimester (ICD-10-CM: O09.299, Date: 11/22/23) 11/22/23 - Encounter for supervision of other normal , second trimester (ICD-10-CM: Z34.82, Date: 11/22/23) 10/16/99 - Encounter for supervision of other normal , third trimester (ICD-10-CM: Z34.83,Date: 03/01/24) LOC TAVERAS : 95 Delivery Summary Baby A Labor Information Labor Onset Methods: Spontaneous Precipitous Labor: No Prolonged Labor: No Monitoring FHR Monitoring Method: Doppler ultrasound Delivery Information Delivery Type: Vaginal Delivery of Head Date/Time: 05/28/24 22:54:00 Date/Time of : 05/28/24 22:54:00 Placenta Delivery Date/Time: 05/28/24 22:58:00 Placenta Delivery Method: Spontaneous Placenta to Pathology: Yes Cord Blood Sent to Lab: Yes Maternal Delivery Complications: None Delivery Physician: Kelvin Martinez MD Attending Physician: Kelvin Martinez MD Information Umbilical Cord Description: 3 vessel cord Note: Items documented with '--' had no clinical data which qualified at time of report creation END OF REPORT Physician Outpatient Note * Kelvin Martinez MD: PERFORM Event Display: Office Clinic Note Physician Authored Date: [id number] LOC TAVERAS :1995 Age:28 years Sex:Female Visit Date:06/18/2024 Primary Care Physician: BEA ALONZO APRN, V Chief Complaint Post appointment, 05/28/2024, lochial flow continues, carpet installer in volume, minimal cramping, breast feeding, no concerns, unsure about control at this time History of Present Illness 28yo 002, The patient is here today for??2 weeks appointment. ??She had a Spontaneous Vaginal Delivery??on 05/28/2024 at 40 1/7 weeks.?? She had an??Abnormal 1 hour GTT at 28 weeks. ??She did not??have a??3-hour GTT but??checked??blood sugars. There was??good control with diet.?? There was a first-degree perineal laceration repaired at the time of delivery. ?? Since delivery,??she has been doing well. ??She is breast-feeding and her supply is good. ??She has??been getting??some rest between feedings at night.?? Her moods and emotions have been good. ??She reports??that she is doing well??with??the citalopram.?? The bleeding has decreased.?The??laceration is healing well. ??There are no problems with urination or bowel movements. ??She is considering??a Mirena IUD for control. ??She used the minipill last time??and thought it adversely??affected . Physical Exam Vitals & Measurements BP:??122/84?? HT:??165.10??cm?? WT:??55.7??kg?? BMI:??20.43?? BSA:??1.6?? GENERAL: Cooperative, alert, no acute distress. HEENT: Head is normocephalic, atraumatic. PERRLA.?? HEART: Regular rate and rhythm without murmur. LUNGS: Clear to auscultation bilaterally, no wheeze, rales or rhonchi. ABDOMEN: Soft, nontender, nondistended. ??No palpable masses. EXTREMITIES: No edema or tenderness. PSYCHIATRIC: Cooperative, appropriate mood and affect Assessment/Plan 1.??Encounter for visit??Z39.2 2.?? - Spontaneous vaginal delivery??O80 3.??Abnormal glucose tolerance test??R73.09 The patient is doing very well overall. She is physically fine with a normal cardiac exam and tapering/finished lochial flow. She and the baby are bonding well and, as expected, are having mostly good days. ??We??reviewed?? control options. ??She will likely??get a Mirena IUD at her 6 weeks appointment. Problem List/Past Medical History Ongoing Abnormal glucose tolerance test Anxiety Diabetes, gestational Encounter for visit Encounter for supervision of normal in multigravida in third trimester Group B Streptococcus carrier History of gestational diabetes mellitus (GDM) in prior , currently Size of fetus inconsistent with dates in third trimester - Spontaneous vaginal delivery Historical Procedure/Surgical History ???Right foot - removal of extra bone (2006)???Adenoidectomy (2002) Medications citalopram 10 mg oral tablet, 10 mg= 1 tab, Oral, Daily, 4 refills freestyle freedom lite lancets, See instructions, 1 refills freestyle freedom lite strips, See instructions, 1 refills magnesium glycinate 200 mg oral tablet, 200 mg= 1 tab, Daily omeprazole 20 mg oral delayed release capsule, 20 mg= 1 cap, Oral, Daily Multivitamins Allergies No Known Medication Allergies Social History Alcohol Past, Beer Electronic Cigarette/Vaping Electronic Cigarette Use: Never. Employment/School Employed, Work/School description: Full-time, RN at [employer].. Exercise Home/Environment Lives with Children, Spouse. Living situation: Home/Independent. Sexual Sexually active: Yes. Substance Use Never Tobacco Never tobacco user Tobacco Use:. Never Smokeless Tobacco use:. Family History Alive and well: Daughter and Son. Cancer: Mother and Grandfather (M). Healthy child: Daughter. Hypercholesterolemia: Father. Hypertension: Father and Grandfather (P). Other: Brother, Aunt/Uncle and Aunt/Uncle. Immunizations Vaccine Date Status tetanus/diphth/pertuss (Tdap) adult/adol 03/05/2024 Given Electronically Signed on 06/18/2024 10:32 EDT Kelvin Martinez MD Patient Care team information Care Team Personnel Name: BEA ALONZO APRN, V Position: No Access Member Role: Primary Care Physician Address: [address] Care Team Related Persons Name: FAHAD TAVERAS Name: FAHAD TAVERASGHTON Insurance Providers Guarantor name: LOC TAVERAS Health Plan Information #: 1 Payer: [employer] Member Number: [id number] Policy Number: NA Health Plan Information #: 2 Payer: [employer] Member Number: [id number] Policy Number: NA
--- OUTSIDE RECORDS SUMMARY | 2024-10-17 21:11 | XMS_ITS | Continuity of Care Document ---
Author Organization [facility] Address [address] [place] [address] Care Team Providers Care Admission Specialist Name Role Phone BEA ALONZO APRN, V Primary Care Physician Encounter [facility] NB [id number] Date(s): 04/16/24 - 04/16/24 [facility] [address] [place] [address]- Encounter Diagnosis Encounter for supervision of normal in multigravida in third trimester (Discharge Diagnosis) - 04/16/24 Abnormal glucose tolerance test(Discharge Diagnosis) - 04/16/24 Abnormal glucose complicating (Final) - 34 weeks gestation of (Final) - Discharge Disposition: Home or Self Care Attending Physician: Yfn Tejada MD Allergies, Adverse Reactions, Alerts No Known Medication Allergies Assessment and Plan Extracted from: Title:OB Extended Office Visit Author:Yfn logan MD Date:04/16/24 1.??Encounter for supervisio n of normal in multigravida in third trimester??Z34.83 ??Telehealth visit today. Has been sick with covid but feels better.?? Did have several blood sugars out of range. Currently diet controlled.?? Will have her follow up next week in lieu of today's visit and reevaluate sugars then.? 2.??Abnormal glucose tolerance test??R73.09 Future Appointments Appointment Date:05/02/2024 04:15:00 PM Scheduled Provider:Rod Samuel MD Location:[facility] [...] # 1 EA, 1 Refill(s), Pharmacy: [id number] Start Date: 03/08/24 Status: Ordered freestyle freedom lite strips freestyle freedom lite strips, 4x daily testing. box of 100, Supply, See instructions, # 1 EA, 1 Refill(s), Pharmacy: [id number] Start Date: 03/08/24 Status: Ordered magnesium glycinate [...] Display: Office Clinic Note Physician Authored Date: [id number] LOC TAVERAS :1995 Age:28 years Sex:Female Visit Date:04/16/2024 Primary Care Physician: BEA ALONZO APRN, V Assessment/Plan 1.??Encounter for supervision of normal in multigravida in third trimester??Z34.83 ??Telehealth visit today. Has been sick with covid but feels better.?? Did have several blood sugars out of range. Currently diet controlled.?? Will have her follow up next week in lieu of today's visit and reevaluate sugars then.?? 2.??Abnormal glucose tolerance test??R73.09 LMP/EGA/BRAD No qualifying data available. Gestational Age (EGA) and BRAD? * Note: EGA calculated as of 04/16/2024 ?? BRAD:??05/27/2024?EGA*:??34 weeks 1 day ?Type:??Authoritative?MethodDate:??08/21/2023 ?Method:??Last Menstrual Period??(08/21/2023) ?Confirmation:??Confirmed ?Description:??-- ?Comments:??-- ?Entered by:??Cheyanne Shields on 11/22/2023? Other BRAD Calculations for this : ?Method:??Ultrasound ?Method Date:??03/22/2024 ?BRDA:??05/13/2024 ?EGA (At Entry):??32 weeks 4 days ?Type:??Non-Authoritative [...] Risk Factors (Current ) Unique Risk Factors:?Other: Growth 88% - Repeat growth US 36-37 weeks., Other: platelets 109, Other: Hx of diet controlled GDM ?? Ethnic Screening Self, Baby's father: ? Genetic Disorders Screening Baby's Mother - Negative, Baby's Father - Negative:?? 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 [...] Performed: 11/22/23 Rubella,Transcribed: Immune Electronically Signed on 04/16/2024 16:15 EDT Yfn Tejada MD Patient Care team information Care Team Personnel Name: BEA ALONZO APRN, V Position: No Access Member Role: Primary Care Physician Address: Address: [place] [address]- Care Team Related Persons Name: FAHAD TAVERAS Address: Home
--- OUTSIDE RECORDS SUMMARY | 2024-10-17 21:11 | XMS_ITS | Continuity of Care Document ---
Author Organization [facility] Address [address] [place] [address] Care Team Providers Care Clinical Technologist Name Role Phone BEA ALONZO APRN, V Primary Care Physician Encounter [facility] NBR [id number] Date(s): 09/02/24 - 09/02/24 [facility] [address] [place], [place] [address] Encounter Diagnosis Intrauterine device surveillance(Discharge Diagnosis) - 09/02/24 Discharge Disposition: Home or Self Care Attending Physician: Kelvin Martinez MD Allergies, Adverse Reactions, Alerts No Known Medication Allergies Assessment and Plan Extracted from: Title:Office Visit Note Author:Kelvin Martinez MD D ate:09/02/24 1.??Intrauterine device surv eillance??Z30.431 After noting the IUD to be in good position, I recommended the patient call if she is bothered by any issues with it. It is typical to have some metrorrhagia for up to 3 months/cycles after a new IUD is placed. If there are issues after that I've asked that she present for evaluation. I spent 15 minutes nrrd-sy-[id number] with the patient, over half in counseling relating to the IUD. Future Scheduled Tests Laboratory* .GTT 3 HR OB 100gm 03/05/24 * .GTT 2 HR OB 100gm 03/05/24 * .GTT 1 HR OB 100gm 03/05/24 * .GTT Fasting OB 03/05/24 Immunizations Given and Recorded Vaccine Date Status Refusal Reason tetanus/diphth/pertuss (Tdap) adult/adol 03/05/24 Given Medications citalopram 10 mg oral tablet 10 mg = 1 tab, Oral, Daily, # 90 tab, 4 Refill(s), Pharmacy: [id number], 165.1, cm, 05/02/24 16:11:00 EDT, Height, 64.2, kg, 05/02/24 16:16:00 EDT, Weight Dosing Start Date: 05/02/24 Stop Date: 07/26/25 Status: Ordered hydrOXYzine hydrochloride 25 mg oral tablet 25 mg = 1 tab, Oral, BID, PRN as needed for anxiety, 0 Refill(s) Start Date: 07/19/24 Status: Ordered magnesium glycinate 200 mg oral tablet 200 mg = 1 tab, Daily, 0 Refill(s) Start Date: 01/03/24 Status: Ordered Mirena 52 mg intrauteral device 52 mg 1 EA, Intrauterine, Once, 0 Refill(s) Start Date: 09/02/24 Status: Ordered omeprazole 20 mg oral delayed release capsule 20 mg = 1 cap, Oral, Daily, 0 Refill(s) Start Date: 03/05/24 Status: Ordered Multivitamins One-a-day womens 28-0.8 &44mg as directed orally., 0 Refill(s) Start Date: 09/27/23 Status: Ordered Problem List Condition Confirmation Course Effective Dates Status H ealth Status Informant Anxiety Confirmed Active Diabetes, gestational 1 Confirmed 2020 Active Group B Streptococcus carrier Confirmed Active Intrauterine device surveillance Confirmed Active - Spontaneous vaginal delivery Confirmed Active 1Diet controlled, A1c 4.5 post-delivery. 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 Completed Adenoidectomy 2002 Completed Vital Signs Most recent to oldest [Reference Range]: 1 Blood Pressure [90-120/60-80 mmHg] 102/7 2mmHg (09/02/24 4:11 PM) Mean Arterial Pressure, Cuff [65-140 mmH g] 82 mmHg (09/02/24 4:11 PM) Weight 56.4 kg (09/02/24 4:11 PM) Weight Measured (lbs) 124.341 lb (09/02/24 4:11 PM) Weight Dosing 56.400 kg (09/02/24 4:11 PM) [place] Body Weight Calculated 57 kg (09/02/24 4:11 PM) Height 165.1 cm (09/02/24 4:11 PM) Height/Length Measured (inches) 65 inch (09/02/24 4:11 PM) BSA Measured 1.61 m2 (09/02/24 4:11 PM) Body Mass Index 20.69 kg/m2 (09/02/24 4:11 PM) Social History Social History Type Response Smoking Status Smoking tobacco use: Never tobacco user;Never entered on: 11/22/23 Sex Sex Representation Female (finding) summary Document * Event Display: Summary Document Authored Date: [id number] LOC TAVERAS: 1995 Age: 28 Years LOC TAVERAS DOB: [birth year] Summary (Date of Report: 06/14/24) (1,0,0,1) Gestation: Harkins LMP (from pt. history): -- BRAD: 05/27/2024 BRAD/EGA Method: Last Menstrual Period EGA: Delivered Gestation info at delivery: Baby A : 40 weeks 1 day LOC TAVERAS : [birth year] Antepartum Note Date: 05/16/24 16:55 (38 weeks) By: Rod Samuel MD Hoping for spont labor. Date: 05/09/24 16:27 (37 weeks) By: Shalini Edward APRN GBS today Date: 05/02/24 16:45 (36 weeks) By: [...] 95 Problems (Active Problems Only) (SNOMED CT: 459597838, Onset: 08/21/23) Gestational diabetes mellitus (SNOMED CT: 09671437, Onset: 06/19/21) Comment: Diet controlled, A1c 4.5 post-delivery. (Amy Winn on 09/27/23) Anxiety (SNOMED CT: 57473870, Onset: --) History of gestational diabetes mellitus (SNOMED CT: 8280087348, Onset: --) Normal (SNOMED CT: 883528155, Onset: --) Glucose tolerance test outside reference range (SNOMED CT: 2306825367, Onset: --) size does not accord with dates (SNOMED CT: 359928057, Onset: --) Group B Streptococcus carrier (SNOMED CT: 9073768533, Onset: --) - Spontaneous vaginal delivery (SNOMED CT: 6301810422, Onset: --) LOC TAVERAS : [birth year] Risk [...] by: Shalini Edward APRN on 01/03/2024 LOC TAVERAS : [birth year] Measurements Pre- Weight: -- Recent Weight Measured: 64.4 kg 05/28/24 (40 weeks) Height/Length Measured: 165.1 cm 05/28/24 (40 weeks) Body Mass Index Measured: 23.63 kg/m2 05/28/24 (40 weeks) LOC TAVERAS DOB: [birth year] Exam and Notes Date ALYSSA Gomez PTL S/S Cervix BP Weight Urine Baby [...] Present per patient 03/05/2024 Present per patient NITIN LOC Agustina : [birth year] Physical Exams Physical Exam Mental [...] Intact, no abnormalities (05/28/24) Mucous Membrane Color: [place] (05/29/24) LOC TAVERAS : [birth year] Blood Types [...] (13 weeks) Baso Absolute 0.0 K/mcL 11/22/23 ( weeks) (0.0 - 0.2) Lymph Absolute 1.4 K/mcL 11/22/23 ( weeks) (1.2 - 3.4) [place] Absolute 0.5 K/mcL 11/22/23 ( weeks) (0.1 [...] % 11/22/23 ( weeks) (42.2 - 75.2) [place] Auto 4.5 % 11/22/23 ( weeks) (1.7 - 9.3) WBC (H) 12.2 K/mcL 11/22/23 ( weeks) (4.8 - 10.8) RBC 4.25 Million/mcL 11/22/23 ( weeks) (4.20 - 5.40) MCV 87.7 fL 11/22/23 ( weeks) (81.0 - 99.0) MCHC 35.0 g/dL 11/22/23 ( weeks) (32.0 - 37.0) Hct 37.3 % 11/22/23 ( weeks) (37.0 - 47.0) MCH 30.7 pg 11/22/23 ( weeks) (27.0 - 31.0) Hgb 13.1 g/dL 11/22/23 ( weeks) (12.0 - 16.0) MPV 9.7 fL 11/22/23 ( weeks) (7.4 - 10.4) Platelets 185 K/mcL 11/22/23 ( weeks) (130 - 400) RDW-CV 14.0 % 11/22/23 ( weeks) (11.5 - 14.5) eAvg Glucose 74 [...] Ref Range Hgb (L) 11.9 g/dL 03/05/24 (28 weeks) (12.0 - 16.0) MPV 9.4 fL 03/05/24 (28 weeks) (7.4 - 10.4) Platelets (L) 109 K/mcL 03/05/24 (28 weeks) (130 - 400) RDW-CV (H) 16.5 % 03/05/24 (28 weeks) (11.5 - 14.5) RBC (L) 3.63 Million/mcL 03/05/24 (28 weeks) (4.20 - 5.40) Hct (L) 33.6 % 03/05/24 ( weeks) (37.0 - 47.0) MCHC 35.5 g/dL 03/05/24 (28 weeks) (32.0 - 37.0) MCV 92.6 fL 03/05/24 ( weeks) (81.0 - 99.0) WBC 8.9 K/mcL 03/05/24 ( weeks) (4.8 - 10.8) MCH (H) 32.9 pg 03/05/24 ( weeks) (27.0 - 31.0) Basophil Auto 0.3 % 03/05/24 ( weeks) (0.0 - 0.8) [place] Auto 5.6 % 03/05/24 ( weeks) (1.7 - 9.3) Lymph Auto (L) 16.5 % 03/05/24 ( weeks) (20.5 - 51.1) Neutro Auto (H) 76.9 % 03/05/24 ( weeks) (42.2 - 75.2) Baso Absolute 0.0 K/mcL 03/05/24 (28 weeks) (0.0 - 0.2) Eos, Auto 0.70 % 03/05/24 ( weeks) (0.00 - 3.00) Eos Absolute 0.1 K/mcL 03/05/24 ( weeks) (0.0 - 0.2) Neutro Absolute (H) 6.9 K/mcL 03/05/24 ( weeks) (1.4 - 6.5) [place] Absolute 0.5 K/mcL 03/05/24 (28 weeks) (0.1 [...] % 05/28/24 (40 weeks) (0.0 - 0.8) [place] Auto 6.2 % 05/28/24 (40 weeks) (1.7 - 9.3) Lymph Auto (L) 19.2 % 05/28/24 (40 weeks) (20.5 - 51.1) Neutro Auto 73.5 % 05/28/24 (40 weeks) (42.2 - 75.2) [place] Absolute (H) 0.7 K/mcL 05/28/24 (40 weeks) [...] Reactive 05/28/24 (40 weeks) Non Reactive LOC TAVERAS DOB: [birth year] Actions No Actions have been documented. LOC TAVERAS : 95 Situational Awareness No comments have been documented. LOC TAVERAS DOB: [birth year] Allergies (Active and Proposed Allergies Only) No Known Medication Allergies (Severity: Unknown severity, Onset: Unknown) NITINLOC [place] : [birth year] Medications Prescriptions and Home Medications [...] 03/08/24 Provider: Shalini Edward APRN Dexcom 6 associate professor of english SIG: See instructions, Pt would like to see cost without PA, 1 EA, 0 Refill(s) Status: Discontinued Ordered: 03/08/24 Provider: Shailni Edward APRN Dexcom 6 sensor SIG: See [...] Status: Completed Ordered: 05/28/24 Provider: DomainUser, Generated ampicillin 2 g = 1 EA, 200 mL/hr, IV Piggyback, Once Status: Completed Ordered: 05/28/24 Provider: Kelvin Martinez MD lidocaine 1% (lidocaine) 20 mL, N/A, Once Status: Completed Ordered: 05/28/24 Provider: DomainUser, Generated lidocaine 1% injectable solution (lidocaine 1% 20 mL Vial [LTTL]) 20 mL, Infiltration, Once Status: Completed Ordered: 05/28/24 Provider: Kelvin Martinez MD Methergine (methylergonovine 0.2 mg/1 mL Vial [LTTL]) 0.2 mg = 1 mL, Intramuscular, Once Status: Completed Ordered: 05/28/24 Provider: Kelvin Martinez MD mineral oil 100% (mineral oil) 30 [...] benzocaine-menthol 20%-0.5% topical spray (benzocaine-menthol 20-0.5% topical [place] [LTTL]) 1 chetan, Topical, As Directed, PRN: [...] PRN: bleeding Status: Discontinued Ordered: 05/28/24 Provider: MD yusra Jarvis dagoberto 50% rectal pad (Witch Dagoberto 50% Top Pad [LTTL]) 1 chetan, Topical, As Directed, PRN: other (see comment) Status: Discontinued Ordered: 05/28/24 Provider: Kelvin Martinez MD LOC TAVERAS DOB: [birth year] Immunizations tetanus/diphth/pertuss (Tdap) adult/adol 03/05/24 (25 weeks) LOC TAVERAS: [birth year] Menstrual History Last Recorded Menstrual Period: [...] Sex: Female Wt: 3629 g Child's Name: [facility]: [facility] Comment: gestational diabetes, diet controlled LOC TAVERAS [...] Other Aunt/Uncle (Maternal Aunt, Alive) Other Daughter ([facility], Alive) Healthy child Procedure or Surgical History Delivery of Products of Conception, External Approach Age: 28 Years Date: 05/28/2024 Repair Perineum Skin, External Approach Age: 28 Years Date: 05/28/2024 Surgery Age: 11 Years Date: 2006 Adenoidectomy Age: 7 Years Date: 2002 LOC TAVERAS DOB: [birth year] Social & Psychosocial History Social History Alcohol Past, Beer Employment/School Employed, Work/School description: Full-time, RN at [employer].. Exercise Comment: no regular exercise (11/22/2023 15:53 - Cheyanne Shields) Home/Environment Lives with Children, Spouse. Living situation: Home/Independent. Sexual Sexually active: Yes. Substance Abuse Never Tobacco Never tobacco user Tobacco Use:. Never Smokeless Tobacco use:. Electronic Cigarette/Vaping Electronic Cigarette Use: Never. Psychosocial History No active psychosocial history has been recorded LOC TAVERAS: [birth year] Infection History Infection history negative or not recorded LOC TAVERAS : 95 Anesthesia and Transfusions Prior Anesthesia or Transfusion Received: Prior general anesthesia, No prior transfusion Prior Anesthesia Reaction(s): Vomiting Prior Transfusion Reaction(s): -- Blood Transfusion Acceptable to Patient: -- LOC TAVERAS : 95 Plan and Patient Requests Desired Delivery Location: -- Education: -- Written Plan: -- Written Plan Location: -- Support Person/Commercial Sales Director Relationship to Pt: -- Oral Intake OB: -- Labor Preferences: -- Non-Medicinal Pain Relief: -- Anesthesia/Pain Medication During Labor: -- Delivery Plan: -- Feeding: -- Circumcision: Before discharge Baby For Adoption: -- Patient Requests: -- Father of the Baby's Name: -- Cna Hha Selected: -- Surrogate : -- Support Person's Name: -- LOC TAVERAS : 95 Education Educational Materials/Leaflets Provided Title/Topic Date Provided [facility] - Vaginal or Delivery Post Discharge Instructions 05/30/24 L&D Patient Education Plan of Care: Verbalizes understanding (05/29/24 - Mary Rivera) Ultrasound: Verbalizes understanding (11/22/23 - Shalini Edward APRN) Weight Gain: Verbalizes understanding (11/22/23 - Shalini Edward APRN) Patient Education Plan of Care: Verbalizes understanding (05/29/24 - Mary Rivera) LOC TAVERAS: 95 Registration and Information Race: White Ethnicity: Not , , or Stateless Origin Marital Status: Single Language(s): Lithuanian Religion Preference(s): None/No Preference Occupation/Education: Address, Phone, and Health Plans Home Address: [address] [place] [phone] (Home), , -- Health Plans: 1 - [facility] Member/Group: [id number] Deductible: $ -- Type: Blue Cross Address: [address], [place] [address] 2 - [facility] Member/Group: [id number] Deductible: $ -- Type: Blue Cross Address: [address] [place] [address] 3 - [facility] Member/Group: -- Deductible: $ -- Type: Commercial Address: [address], [place] [address] 4 - [facility] Member/Group: -- Deductible: $ -- Type: Commercial Address: [address], [place] [address] General Information OB Provider(s) Information: Not explicitly recorded. May be noted in encounter section below. See below for detailed information for all visits and information. Delivery Center/Hospital Information: -- [facility] Provider Information: -- Referring Provider Information: Yfn Tejada MD Primary Provider Information: BEA ALONZO APRN, V /Partner Information: -- -- Support Person Information: -- Planned/Unplanned : -- Date Consent Signed for Tubal Ligation: -- Date Record Sent to Hospital: -- LOC TAVERAS : 95 Visits and Encounters (Known encounters since 08/21/2023. May include lab encounters.) Date Location Provider Type Medical Service 07/08/2024 [facility] Kelvin Martinez MD [facility] 06/18/2024 [facility] Kelvin Martinez MD Clinic [facility] 05/30/2024 [facility] -- Clinic [facility] 05/28/2024 A Kelvin Martinez MD Inpatient Inpatient 05/23/2024 4 Yfn Tejada MD Clinic Clinic 05/16/2024 1 Rod Samuel MD Clinic Clinic 05/09/2024 [facility] Shalini Edward, [employer] Outpatient Lab 05/09/2024 [facility] Shalini Edward, [employer] Clinic Clinic 05/02/2024 2 Rod Samuel MD Clinic Clinic 04/30/2024 [facility] Yfn Tejada MD Outpatient 04/16/2024 [facility] -- Clinic [facility] Clinic 04/16/2024 [facility] Yfn Tejada MD Clinic Clinic 04/05/2024 [facility] -- Between Visit -- 04/04/2024 6 Yfn Tejada MD Clinic Clinic 03/26/2024 [facility] -- Between Visit -- 03/22/2024 T2 Kelvin Martinez MD Clinic Clinic 03/22/2024 [facility] Shalini Edward, [employer] Outpatient US 03/07/2024 [facility] -- Between Visit -- 03/06/2024 [facility] -- Between Visit -- 03/05/2024 [facility] -- Between Visit -- 03/05/2024 [facility] Shalini Edward, [employer] Outpatient Lab 03/05/2024 [facility] Shalini Edward, [employer] Clinic Clinic 02/02/2024 6 Yfn Tejada MD Clinic Clinic 01/22/2024 [facility] -- Between Visit -- 01/04/2024 [facility] -- Between Visit -- 01/03/2024 [facility] Shalini Edward, [employer] Outpatient Lab 01/03/2024 [facility] Shalini Edward, [employer] Clinic Clinic 01/03/2024 [facility] Shalini Edward, [employer] Outpatient US 12/11/2023 [facility] -- Between Visit -- 11/22/2023 [facility] Shalini Edward, [employer] Outpatient Lab 11/22/2023 [facility] Shalini Edward, [employer] Clinic Clinic 09/29/2023 [facility] Yfn Tejada MD [facility] LOC TAVERAS DOB: [birth year] Visit / Encounter Location Information The following information represents known location and contact information for locations visitedduring [facility] Business Address: [address] [place] [address] Phone:[phone] [facility] Business Address: [address] [place] [address] Phone: No phone numbers found on file for location LOC TAVERAS DOB: [birth year] Visit Diagnosis (Note: All diagnoses documented [...] Display: Office Clinic Note Physician Authored Date: [id number] LOC TAVERAS :1995 Age:29 years Sex:Female Visit Date:09/02/2024 Primary Care Physician: BEA ALONZO APRN, V Chief Complaint IUD check, Mirena placed 07/19/2024, bleeding for a couple of days since placement, ongoing spotting History of Present Illness 29yo Female, The patient is here today for an IUD check. ??She??had a Mirena IUD inserted at her 6 weeks appointment on 07/19/2024. ??Since insertion,??there have not been any problems.?? She had cramping??the first day after insertion. ??There is some irregular??spotting.?? There are no problems with intercourse. Physical Exam Vitals & Measurements BP:??102/72?? HT:??165.1??cm?? WT:??56.4??kg?? BMI:??20.69?? Pain Score:??0?? BSA:??1.61?? General: Alert and oriented, well nourished, no acute distress Lungs: Clear to auscultation, non-labored respiration Heart: Normal rate, regular rhythm, no murmurs Abdomen: Soft, non-tender, non-distended, no masses Musculoskeletal: Grossly normal range of motion and strength, no tenderness or swelling ? Vulva: Normal external female genitalia, no masses, no atrophy, Bartholin???s and Mcclelland???s glands normal Vagina: No abnormal discharge or blood Cervix: Normal appearance, IUD strings in appropriate position Uterus: Normal size, shape, non tender, mobile, no prolapse Adnexa: No masses or tenderness Assessment/Plan 1.??Intrauterine device surveillance??Z30.431 After noting the IUD to be in good position, I recommended the patient call if she is bothered by any issues with it. It is typical to have some metrorrhagia for up to 3 months/cycles after a new IUDis placed. If there are issues after that I've asked that she present for evaluation. I spent 15 minutes aimc-py-dbew with the patient, over half in counseling relating to the IUD. Problem List/Past Medical History Ongoing Anxiety Diabetes, gestational Group B Streptococcus carrier Intrauterine device surveillance - Spontaneous vaginal delivery Historical Procedure/Surgical History ???Right foot - removal of extra bone (2006)???Adenoidectomy (2002) Medications citalopram 10 mg oral tablet, 10 mg= 1 tab, Oral, Daily, 4 refills hydrOXYzine hydrochloride 25 mg oral tablet, 25 mg= 1 tab, Oral, BID, PRN magnesium glycinate 200 mg oral tablet, 200 mg= 1 tab, Daily Mirena 52 mg intrauteral device, 52 mg= 1 EA, Intrauterine, Once omeprazole 20 mg oral delayed release capsule, 20 mg= 1 cap, Oral, Daily Multivitamins Allergies No Known Medication Allergies Social History Alcohol Past, Beer Electronic Cigarette/Vaping Electronic Cigarette Use: Never. 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, [...] (Tdap) adult/adol 03/05/2024 Given Electronically Signed on 09/02/2024 16:32 EST Kelvin Martinez MD Patient Care team information Care Team Personnel Name: BEA ALONZO APRN, V Position: No Access Member Role: Primary Care Physician Address: [place] [address]- Care Team Related Persons Name: FAHAD TAVEARS Name: FAHAD TAVERAS Insurance Providers Guarantor name: LOC TAVERAS Health Plan Information #: 1 Payer: [facility] Member Number: [id number] Policy Number: NA Health Plan Information #: 2 Payer: [facility] Member Number: ROBBIN Policy Number: ROBBIN Health Plan Information #: 3 Payer: [facility] Member Number: [id number] Policy Number: NA
--- OUTSIDE RECORDS SUMMARY | 2024-10-17 21:11 | XMS_ITS | Continuity of Care Document ---
Author Organization [facility] Amb[facility] Address [address] [place] [address] Care Team Providers Care Fishing Tool Operator Name Role Phone BEA ALONZO APRN, V Primary Care Physician Encounter [facility] NBR [id number] Date(s): 07/19/24 - 07/19/24 [facility] [address] [place], [place] [address] Encounter Diagnosis Encounter for visit(Discharge Diagnosis) - 07/19/24 - Spontaneous vaginal delivery(Discharge Diagnosis) - 07/19/24 Encounter for IUD insertion(Discharge Diagnosis) - 07/19/24 Discharge Disposition: Home or Self Care Attending Physician: Kelvin Martinez MD Admitting Physician: Kelvin Martinez MD Allergies, Adverse Reactions, Alerts No Known Medication Allergies Assessment and Plan Extracted from: Title: Visit Note Author:Kelvin Martinez MD Date:07/19/24 1.??Encounter for visit??Z39.2 2.?? - Spontaneous vaginal delivery??O80 3.??Encounter for IUD insertion??Z30.430 Given Mirena, 1 EA, Intrauterine. For: Encounter for visit,??Encounter for IUD insertion Future Appointments Future Scheduled Tests Laboratory* .GTT [...] Daily, # 90 tab, 4 Refill(s), Pharmacy: [facility], 165.1, cm, 05/02/24 16:11:00 EDT, Height, 64.2, kg, 05/02/24 16:16:00 EDT, Weight Dosing Start Date: 05/02/24 Stop Date: 07/26/25 Status: Ordered freestyle freedom lite lancets freestyle freedom lite lancets, 4x daily testing. Box of 100, Supply, See instructions, # 1 EA, 1 Refill(s), Pharmacy: [facility] Start Date: 03/08/24 Status: Ordered freestyle freedom lite strips freestyle freedom lite strips, 4x daily testing. box of 100, Supply, See instructions, # 1 EA, 1 Refill(s), Pharmacy: [facility] Start Date: 03/08/24 Status: Ordered hydrOXYzine hydrochloride 25 mg oral [...] Active Group B Streptococcus carrier Confirmed Active Encounter for supervision of normal in multigravida in third trimester Confirmed Active Encounter for IUD insertion Confirmed Active Encounter for visit Confirmed Active - Spontaneous vaginal delivery Confirmed Active 1Diet controlled, A1c 4.5 post-delivery. 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 Completed Adenoidectomy 2002 Completed Vital Signs Most recent to oldest [Reference Range]: 1 Blood Pressure [90-120/60-80 mmHg] 92/52 mmHg (10/4/24 2:19 PM) Mean Arterial Pressure, Cuff [65-140 mmH g] 65 mmHg (07/19/24 2:19 PM) Weight 56.7 kg (07/19/24 2:19 PM) Weight Measured (lbs) 125.002 lb (07/19/24 2:19 PM) Weight Dosing 56.700 kg (07/19/24 2:19 PM) Imler Body Weight Calculated 57 kg (07/19/24 2:19 PM) Height 165.1 cm (07/19/24 2:19 PM) Height/Length Measured (inches) 65 inch (07/19/24 2:19 PM) BSA Measured 1.61 m2 (07/19/24 2:19 PM) Body Mass Index 20.8 kg/m2 (07/19/24 2:19 PM) Social History Social History Type Response Smoking Status Smoking tobacco use: Never tobacco user;Never entered on: 11/22/23 Sex Sex Representation Female (finding) Hospital Discharge Instructions Follow Up Care 06/03/2024 10:20:51 With:Kelvin Martinez MD Address: [address] [place] [id number] When:Within 6 Week(s) Comments:IUD check summary Document * Event Display: Summary Document Authored Date: [id number] LOC TAVERAS: 1995 Age: 28 Years LOC [...] (37 weeks) By: Shalini Edward APRN [facility] today Date: 05/02/24 16:45 (36 weeks) By: Rod Samuel MD US reviewed. Unless FH's change or there are other indications- no further US's needed. Date: 02/02/24 09:54 (23 weeks) By: Yfn Tejada MD GCT next visit. Date: 01/03/24 15:35 (19 weeks) By: MORGAN Thacker today, reviewed report Date: 11/22/23 16:30 (13 weeks) By: MORGAN Thacker/chetant nv LOC TAVERAS : [birth year] Problems (Active Problems Only) (SNOMED CT: 310378439, Onset: 08/21/23) Gestational diabetes mellitus (SNOMED CT: 36333738, Onset: 06/19/21) Comment: Diet controlled, A1c 4.5 post-delivery. (Amy Winn on 09/27/23) Anxiety (SNOMED CT: 26519848, Onset: --) History of gestational diabetes mellitus (SNOMED CT: 7058601266, Onset: --) Normal (SNOMED CT: 846812864, Onset: --) Glucose tolerance test outside reference range (SNOMED CT: 3706954721, Onset: --) size does not accord with dates (SNOMED CT: 690342876, Onset: --) Group B Streptococcus carrier (SNOMED CT: 6654454811, Onset: --) - Spontaneous vaginal delivery (SNOMED CT: 0991872580, Onset: --) LOC TAVERAS DOB: [birth year] Risk Factors and Genetic Screening All [...] Negative: Defect, Cystic Fibrosis, Down Syndrome, Hemophilia, Banner's Chorea, *Mental Retardation, Muscular Dystrophy, Neural Tube, [...] LOC TAVERAS: [birth year] Exam and Notes Date EGA FunHt PTL S/S Cervix BP Weight Urine [...] Intact, no abnormalities (05/28/24) Mucous Membrane Color: Ragland (05/29/24) LOC TAVERAS : 95 Blood Types [...] K/mcL 11/22/23 ( weeks) (1.2 - 3.4) [place] Absolute 0.5 K/mcL 11/22/23 ( weeks) (0.1 - 0.6) Neutro Absolute (H) 10.1 K/mcL 11/22/23 ( weeks) (1.4 - 6.5) Eos Absolute 0.1 K/mcL 11/22/23 ( weeks) (0.0 - 0.2) Basophil Auto 0.2 % 11/22/23 (13 weeks) (0.0 - 0.8) Eos, Auto 0.70 % 11/22/23 ( weeks) (0.00 - 3.00) Lymph Auto (L) 11.8 % 11/22/23 ( weeks) (20.5 - 51.1) Neutro Auto (H) 82.8 % 11/22/23 ( weeks) (42.2 - 75.2) [place] Auto 4.5 % 11/22/23 (13 weeks) (1.7 - 9.3) WBC (H) 12.2 [...] % 03/05/24 ( weeks) (0.0 - 0.8) [place] Auto 5.6 % 03/05/24 ( weeks) (1.7 [...] K/mcL 03/05/24 (28 weeks) (1.4 - 6.5) [place] Absolute 0.5 K/mcL 03/05/24 (28 weeks) (0.1 [...] % 05/28/24 (40 weeks) (0.0 - 0.8) [place] Auto 6.2 % 05/28/24 (40 weeks) (1.7 - 9.3) Lymph Auto (L) 19.2 % 05/28/24 (40 weeks) (20.5 - 51.1) Neutro Auto 73.5 % 05/28/24 (40 weeks) (42.2 - 75.2) [place]y Absolute (H) 0.7 K/mcL 05/28/24 (40 weeks) [...] 03/08/24 Provider: Shalini Edward APRN Dexcom 6 microsoft infrastructure consultant SIG: See instructions, Pt would like to [...] Status: Completed Ordered: 05/28/24 Provider: BandarUser, Generated terbutaline (terbutaline 1 mg/1 mL Vial [...] benzocaine-menthol 20%-0.5% topical spray (benzocaine-menthol 20-0.5% topical Eagle [LTTL]) 1 chetan, Topical, As Directed, PRN: [...] of Home Test: -- Comments: -- LOC TAVERAS: 95 History (1,0,0,1) # 1 Baby 1 Outcome Date: 04/06/2021 Outcome or Result: Vaginal Gest Age: 40 weeks 2 days Outcome: Live Sex: Female Wt: 3629 g Child's Name: [facility]: [facility] Comment: gestational diabetes, diet controlled LOC TAVERAS: 95 Medical History Past Medical History No [...] Employment/School Employed, Work/School description: Full-time, RN at [employer].. Exercise Comment: no regular exercise (11/22/2023 [...] -- Blood Transfusion Acceptable to Patient: -- LCO TAVERAS: 95 Plan and Patient Requests Desired Delivery Location: -- Education: -- Written Plan: -- Written Plan Location: -- Support Person/Patent Clerk Relationship to Pt: -- Oral Intake OB: -- Labor Preferences: -- Non-Medicinal Pain Relief: -- Anesthesia/Pain Medication During Labor: -- Delivery Plan: -- Feeding: -- Circumcision: Before discharge Baby For Adoption: -- Patient Requests: -- Father of the Baby's Name: -- Syrup Mixer Assistant Selected: -- Surrogate : -- Support Person's Name: -- LOC TAVERAS : 95 Education Educational Materials/Leaflets Provided Title/Topic Date Provided [facility] - Vaginal or Delivery Post Discharge Instructions 05/30/24 L&D Patient Education Plan of Care: Verbalizes understanding (05/29/24 - Mary Rivera) Ultrasound: Verbalizes understanding (11/22/23 - Shalini Edward APRN) Weight Gain: Verbalizes understanding (11/22/23 - Shalini Edward APRN) Patient Education Plan of Care: Verbalizes understanding (05/29/24 - Mary Rivera) LOC TAVERAS : 95 Registration and Information Race: White Ethnicity: Not , , or Central African Origin Marital Status: Single Language(s): Danish Denominational Preference(s): None/No Preference Occupation/Education: Address, Phone, and Health Plans Home Address: [facility] [place], [place] [id number] (Home), , -- Health Plans: 1 - [facility] Member/Group: [id number] Deductible: $ -- Type: [facility] Address: [address] [address] 2 - [facility] Member/Group: [id number] Deductible: $ -- Type: [facility] Address: [address] [address] 3 - [facility] Member/Group: -- Deductible: $ -- Type: Commercial Address: [facility] [address], [place] [address] 4 - [facility] Member/Group: -- Deductible: $ -- Type: Commercial Address: [facility] [address], [place] [address] General Information OB Provider(s) Information: Not explicitly recorded. May be noted in encounter section below. See below for detailed information for all visits and information. Delivery Center/Hospital Information: -- [place] Provider Information: -- Referring Provider Information: Yfn Tejada MD Primary Provider Information: BEA ALONZO APRN, V /Partner Information: -- -- Support Person Information: -- Planned/Unplanned : -- Date Consent Signed for Tubal Ligation: -- Date Record Sent to Hospital: -- LOC TAVERAS : 95 Visits and Encounters (Known encounters since 08/21/2023. May include lab encounters.) Date Location Provider Type Medical Service 07/08/2024 [facility] Kelvin Martinez MD [facility] 06/18/2024 [facility] Kelvin Martinez MD [facility] 05/30/2024 [facility] 05/28/2024 A Kelvin Martinez MD Inpatient Inpatient 05/23/2024 4 Yfn Tejada MD Clinic Clinic 05/16/2024 1 Rod Samuel MD Clinic Clinic 05/09/2024 [facility] Shalini Edward APRN Outpatient Lab 05/09/2024 [facility] Shalini Edward APRN Clinic Clinic 05/02/2024 2 Rod aSmuel MD Clinic Clinic 04/30/2024 [facility] Yfn Tejada MD Outpatient 04/16/2024 [facility] -- Clinic [facility] 04/16/2024 [facility] Yfn Tejada MD Clinic Clinic 04/05/2024 [facility] -- Between Visit -- 04/04/2024 6 Yfn Tejada MD Clinic Clinic 03/26/2024 [facility] -- Between Visit -- 03/22/2024 T2 Kelvin Martinez MD Clinic Clinic 03/22/2024 [facility] APRN Outpatient 03/07/2024 [facility] -- Between Visit -- 03/06/2024 [facility] -- Between Visit -- 03/05/2024 [facility] -- Between Visit -- 03/05/2024 [facility] Shalini Edward APRN Outpatient Lab 03/05/2024 [facility] Shalini Edward, [facility] Clinic Clinic 02/02/2024 6 Yfn Tejada MD Clinic Clinic 01/22/2024 [facility] -- Between Visit -- 01/04/2024 [facility] -- Between Visit -- 01/03/2024 [facility] Shalini Edward, [facility] Outpatient Lab 01/03/2024 [facility] Shalini Edward, [facility] Clinic 01/03/2024 [facility] Shalini Edward, [facility] Outpatient US 12/11/2023 [facility] -- Between Visit -- 11/22/2023 [facility] Shalini Edward, [facility] Outpatient Lab 11/22/2023 [facility] Shalini Edward, [facility] Clinic 09/29/2023 [facility] Yfn Tejada MD [facility] Clinic LOC TAVERAS : 95 Visit / Encounter Location Information The following information represents known location and contact information for locations visitedduring [facility] Business Address: [address] [place] [address] Phone:[phone] [facility] Business Address: [address] [place] [address] Phone: No phone numbers found on file for location NITINLOC Agustina : 95 Visit Diagnosis (Note: All diagnoses [...] Display: Office Clinic Note Physician Authored Date: [id number] LOC TAVERAS :1995 Age:29 years Sex:Female Visit Date:07/19/2024 Primary Care Physician: BEA ALONZO APRN, V Chief Complaint Post appointment, 05/28/2024, IUD today, PAP: 06/09/2023: NILM; lochial flow has stopped, breast feeding, no concerns History of Present Illness 28yo 002, The patient is here today for??a?? appointment. ??She had a Spontaneous Vaginal Delivery??on 05/28/2024 at 40 1/7 weeks.?? She had an??Abnormal 1 hour GTT at 28 weeks. ??She did not??have a??3-hour GTT but??checked??blood sugars. There was??good control with diet.?? There was a first-degree perineal laceration repaired at the time of delivery. ?? Since her last appointment,??she has been doing well. ??She is breast-feeding and her supply is good. ??She is getting plenty of rest??between feedings.?? Her moods and emotions have been good. ??She reports??that she is doing well??with??the citalopram.?? The bleeding has stopped, and her laceration has healed well. ??There are no problems with urination or bowel movements. ??She reports thather last Pap smear??on 06/09/2023 was??normal. ??She wants??a Mirena IUD for control. ??She used the minipill last time??and thought it adversely??affected . Physical Exam Vitals & Measurements BP:??92/52?? HT:??165.1??cm?? WT:??56.7??kg?? BMI:??20.8?? BSA:??1.61?? General: Alert and oriented, well nourished, [...] no rashes Neurologic: Awake, alert, and oriented X4 Psychiatric: Cooperative, appropriate mood and affect ?? Vulva: Normal external female genitalia,??Bartholin???s and [place]???s glands normal Bladder: Urethra normal Vagina: No abnormal discharge or blood Cervix: Normal appearance, no lesions or lacerations Uterus: Normal size, shape, non tender, mobile Adnexa: No masses or tenderness Perineum:??Intact, healed well?? Procedure IUD Insertion:? Consent: Informed consent obtained.?? Prep: The patient was placed in the lithotomy position??on the exam table..?? Procedure: A speculum was placed into the vagina.?? The cervix was prepped with Betadine.?The cervix was grasped anteriorly with a single-tooth tenaculum. ??The uterus was sounded and the IUD was appropriately set.??The device was inserted without difficulty as recommended.?The??IUD strings were trimmed appropriately.?? The speculum was removed from the vagina??and the patient returned??to supine position. Post procedure: The patient tolerated the procedure well. Assessment/Plan 1.??Encounter for visit??Z39.2 2.?? - Spontaneous vaginal delivery??O80 3.??Encounter for IUD insertion??Z30.430 Medications and Immunizations This Visit Given Mirena, 1 EA, Intrauterine. For: Encounter for visit,??Encounter for IUD insertion Follow Up Instructions With When Contact Information Kelvin Martinez MD In 6 weeks [address] [place] [address] Additional Instructions: IUD check Problem List/Past Medical History Ongoing Anxiety Diabetes, gestational Encounter for IUD insertion Encounter for visit Encounter for supervision of normal in multigravida in third trimester Group B Streptococcus carrier - Spontaneous vaginal delivery Historical Procedure/Surgical History ???Right foot - removal of extra bone (2006)???Adenoidectomy (2002) Medications citalopram 10 mg oral tablet, 10 mg= 1 tab, Oral, Daily, 4 refills freestyle freedom lite lancets, See instructions, 1 refills freestyle freedom lite strips, See instructions, 1 refills hydrOXYzine hydrochloride 25 mg oral tablet, 25 mg= 1 tab, Oral, BID, PRN magnesium glycinate 200 mg oral tablet, 200 mg= 1 tab, Daily omeprazole 20 mg oral delayed release capsule, 20 mg= 1 cap, Oral, Daily Multivitamins Allergies No Known Medication Allergies Social History Alcohol Past, Beer Electronic Cigarette/Vaping Electronic Cigarette Use: Never. 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 [...] (Tdap) adult/adol 03/05/2024 Given Electronically Signed on 07/19/2024 14:49 EDT Kelvin Martinez MD Patient Care team information Care Team Personnel Name: BEA ALONZO APRN, V Position: No Access Member Role: Primary Care Physician Address: [place] [address]- Care Team Related Persons Name: FAHAD TAVERAS Name: FAHAD TAVERAS Insurance Providers Guarantor name: LOC Agustina TAVERAS Health Plan Information #: 1 Payer: [facility] Member Number: [id number] Policy Number: NA Health Plan Information #: 2 Payer: [facility] Member Number: [id number] Policy Number: NA
--- OUTSIDE RECORDS SUMMARY | 2024-10-17 21:11 | XMS_ITS | Encounter Summary ---
Author Organization [facility] Address [address] [place] [address] Care Team Providers Care Manager Agriculture Name Role Phone Unavailable Primary Care Provider Unavailabl e Encounter Details Date Type Department Care Team (Late st Contact Info) Description 09/24/2020 Lab Requisition [facility] Pathology & Laboratory Medicine - [address] [address] Outr Resulting Lab, Provider Social History Tobacco [...] Date/Time Associated Diagnosis Comments HEPATITIS B SURFACE ANTIGEN Routine 09/23/2020 7:30 EST documented in this encounter Results * HEPATITIS B SURFACE ANTIGEN (09/23/2020 7:30 EST) Hep B Surface Ag Negative Negative 09/25/2020 9:23 EST [facility] Blood VENOUS BLOOD / Unknown 09/23/2020 7:30 EST 09/24/2020 16:22 EST us Provider Outr Resulting Lab CHEMISTRY & BLOOD GA S ORDERABLES Final Result [facility] [address] [place] [address] documented in this encounter Visit Diagnoses Not on filedocumented in this encounter
--- OUTSIDE RECORDS SUMMARY | 2024-10-17 21:11 | XMS_ITS | Clinical Summary ---
Author Organization [facility] [place] [address] Care Team Providers Care Silk Screen Cutter Name Role Phone Unavailable Primary Care Provider Unavailabl e Social History Tobacco Use Types Packs/Day Years Used Date Smoking Tobacco: Never Assessed Sex and Gender Information Value Date Recorded Sex Assigned at Not on file Gender Identity Not on file Sexual Orientation Not on file Plan of Treatment Health Maintenance Due Date Last Done Comments HIV screen 2013 Hepatitis C Screening 2013 Hepatitis B vaccine (0-59 yrs) (1) 2014 Tetanus/Diphtheria/Pertussis Vaccines (1 - Tdap) 06/19 PAP Smear 2016 Covid-19 Vaccine ( - 2023- season) 2024 Influenza (Flu) vaccine (1 o f 1 - Influenza standard series) 06/16/2024
--- OUTSIDE RECORDS SUMMARY | 2024-10-17 21:11 | XMS_ITS | Encounter Summary ---
Author Organization [facility] Address [address] [place] [address] Care Team Providers Care Sql Analyst Name Role Phone Unavailable Primary Care Provider Unavailabl e Encounter Details Date Type Department Care Team (Late st Contact Info) Description 07/09/2021 Lab Requisition [facility] Pathology & Laboratory Medicine - [facility] [address] [place] [address] Outr Resulting Lab, Provider Social History Tobacco [...] Procedure Name Priority Date/Time Associated Diagnosis Comments QUANTIFERON MITOGEN (PERFORMABLE) Today 07/08/2021 10:43 EDT QUANTIFERON TB2 (PERFORMABLE) Today 07/08/2021 10:43 EDT QUANTIFERON TB1 (PERFORMABLE) Today 07/08/2021 10:43 EDT QUANTIFERON NIL (PERFORMABLE) Today 07/08/2021 10:43 EDT QUANTIFERON INTERPRETATION (PERFORMABLE) Today 07/08/2021 10:43 EDT QUANTIFERON TB GOLD PLUS Routine 07/08/2021 10:43 EDT documented in this encounter Results * QUANTIFERON INTERPRETATION (PERFORMABLE) (07/08/2021 10:43 EDT) Quantiferon Interpretation Negative Negative 07/12/2021 13:11 EDT [facility] Comment:No interferon-gamma response to M. tuberculosis antigens was detected. ??Infection with M. tuberculosis is unlikely. A single negative result does not exclude infection with M. tuberculosis. ??In patients at high risk for M. tuberculosis infection, a second test should be considered. TB1 Ag minus Nil 0.00 IU/ml 07/12/20 13:11 EDT [facility] TB2 Ag minus Nil 0.01 IU/mL 07/12/20 13:11 EDT [facility] Blood VENOUS BLOOD / Unknown 07/08/2021 10:43 EDT 07/12/2021 12:33 EDT Narrative [facility] - 07/12/2021 13:11 EDT Results were obtained with the Qiagen QuantiFERON-TB Gold Plus CLIA. New platform in use 06/23/2021 us Provider Outr Resulting Lab IMMUNOLOGY AND SEROL OGY ORDERABLES Final Result Performing Organization Address [facility] Co de Phone Number [facility] [address] [place] [phone] * QUANTIFERON MITOGEN (PERFORMABLE) (07/08/2021 10:43 EDT) Blood VENOUS BLOOD / Unknown 07/08/2021 10:43 EDT 07/09/2021 16:35 EDT us Provider Outr Resulting Lab IMMUNOLOGY AND SEROL OGY ORDERABLES Final Result Performing Organization Address [facility]/ZIP Co de Phone Number [facility] [address] [place] [phone] * QUANTIFERON TB2 (PERFORMABLE) (07/08/2021 10:43 EDT) Blood VENOUS BLOOD / Unknown 07/08/2021 10:43 EDT 07/09/2021 16:35 EDT us Provider Outr Resulting Lab IMMUNOLOGY AND SEROL OGY ORDERABLES Final Result Performing Organization Address [facility]/ZIP Co de Phone Number [facility] [address] [place] [phone] * QUANTIFERON TB1 (PERFORMABLE) (07/08/2021 10:43 EDT) Blood VENOUS BLOOD / Unknown 07/08/2021 10:43 EDT 07/09/2021 16:35 EDT us Provider Outr Resulting Lab IMMUNOLOGY AND SEROL OGY ORDERABLES Final Result Performing Organization Address City/[facility]/ZIP Co de Phone Number [facility] [address] [place] [address] * QUANTIFERON NIL (PERFORMABLE) (07/08/2021 10:43 EDT) Blood VENOUS BLOOD / Unknown 07/08/2021 10:43 EDT 07/09/2021 16:36 EDT us Provider Outr Resulting Lab IMMUNOLOGY AND SEROL OGY ORDERABLES Final Result Performing Organization Address City/[facility]/ZIP Co de Phone Number [facility] [address] [place] [address] documented in this encounter Visit Diagnoses Not on filedocumented in this encounter
--- OUTSIDE RECORDS SUMMARY | 2024-10-17 21:11 | XMS_ITS | Continuity of Care Document ---
Author Organization [facility] Address [address] [place] [address] Care Team Providers Care Client Hr Manager Name Role Phone BEA ALONZO APRN, V Primary Care Physician Encounter [facility] NBR [id number] Date(s): 07/10/24 - 07/10/24 [facility] [address] [place], [place] [address] Discharge Disposition: Home Allergies, Adverse Reactions, Alerts No Known Medication Allergies Assessment and Plan Future Appointments Future Scheduled Tests Laboratory* .GTT [...] Daily, # 90 tab, 4 Refill(s), Pharmacy: [id number], 165.1, cm, 05/02/24 16:11:00 EDT, Height, 64.2, kg, 05/02/24 16:16:00 EDT, Weight Dosing Start Date: 05/02/24 Stop Date: 07/26/25 Status: Ordered freestyle freedom lite lancets freestyle freedom lite lancets, 4x daily testing. Box of 100, Supply, See instructions, # 1 EA, 1 Refill(s), Pharmacy: [id number] Start Date: 03/08/24 Status: Ordered freestyle freedom lite strips freestyle freedom lite strips, 4x daily testing. box of 100, Supply, See instructions, # 1 EA, 1 Refill(s), Pharmacy: [facility] [id number] Start Date: 03/08/24 Status: Ordered magnesium glycinate [...] * Event Display: Summary Document Authored Date: [id number] LOC TAVERAS : 1995 Age: 28 Years LOC TAVERAS : [birth year] Summary (Date of Report: 06/14/24) (1,0,0,1) Gestation: Harkins LMP (from pt. history): -- BRAD: 05/27/2024 BRAD/EGA Method: Last Menstrual Period EGA: Delivered Gestation info at delivery: Baby A : 40 weeks 1 day LOC TAVERAS : [birth year] Antepartum Note Date: 05/16/24 16:55 (38 weeks) By: Rod Samuel MD Hoping for spont labor. Date: 05/09/24 16:27 (37 weeks) By: Shalini Edward APRN [facility] today Date: 05/02/24 16:45 (36 weeks) By: Rod Samuel MD US reviewed. Unless FH's change or there are other indications- no further US's needed. Date: 02/02/24 09:54 (23 weeks) By: Yfn Tejada MD GCT next visit. Date: 01/03/24 15:35 (19 weeks) By: Shalini Edward APRN today, reviewed report Date: 11/22/23 16:30 (13 weeks) By: MORGAN Thacker/appt nv LOC TAVERAS DOB: [birth year] Problems (Active Problems Only) (SNOMED CT: 761825610, Onset: 08/21/23) Gestational diabetes mellitus (SNOMED CT: 96936760, Onset: 06/19/21) Comment: Diet controlled, A1c 4.5 post-delivery. (Amy Winn on 09/27/23) Anxiety (SNOMED CT: 59448218, Onset: --) History of gestational diabetes mellitus (SNOMED CT: 2468699025, Onset: --) Normal (SNOMED CT: 035600698, Onset: --) Glucose tolerance test outside reference range (SNOMED CT: 9972594066, Onset: --) size does not accord with dates (SNOMED CT: 934077872, Onset: --) Group B Streptococcus carrier (SNOMED CT: 0846962460, Onset: --) - Spontaneous vaginal delivery (SNOMED CT: 4902392807, Onset: --) LOC TAVERAS DOB: [birth year] Risk [...] Negative: Defect, Cystic Fibrosis, Down Syndrome, Hemophilia, [place]'s Chorea, *Mental Retardation, Muscular Dystrophy, Neural Tube, [...] LOC TAVERAS: [birth year] Exam and Notes Date ALYSSA Gomez [...] Intact, no abnormalities (05/28/24) Mucous Membrane Color: [place] (05/29/24) LOC TAVERAS : [birth year] Blood Types [...] - 0.2) Lymph Absolute 1.4 K/mcL 11/22/23 (13 weeks) (1.2 - 3.4) Louisa Absolute 0.5 K/mcL 11/22/23 (13 weeks) (0.1 - 0.6) Neutro Absolute (H) 10.1 K/mcL 11/22/23 (13 weeks) (1.4 - 6.5) Eos Absolute 0.1 K/mcL 11/22/23 ( weeks) (0.0 - 0.2) Basophil Auto 0.2 % 11/22/23 (13 weeks) (0.0 - 0.8) Eos, Auto 0.70 % 11/22/23 (13 weeks) (0.00 - 3.00) Lymph Auto (L) 11.8 % 11/22/23 (13 weeks) (20.5 - 51.1) Neutro Auto (H) 82.8 % 11/22/23 ( weeks) (42.2 - 75.2) Louisa Auto 4.5 % 11/22/23 ( weeks) (1.7 [...] % 03/05/24 ( weeks) (0.0 - 0.8) Louisa Auto 5.6 % 03/05/24 ( weeks) (1.7 - 9.3) Lymph Auto (L) 16.5 % 03/05/24 ( weeks) (20.5 - 51.1) Neutro Auto (H) 76.9 % 03/05/24 ( weeks) (42.2 - 75.2) Baso Absolute 0.0 K/mcL 03/05/24 ( weeks) (0.0 - 0.2) Eos, Auto 0.70 % 03/05/24 (28 weeks) (0.00 - 3.00) Eos Absolute 0.1 K/mcL 03/05/24 (28 weeks) (0.0 - 0.2) Neutro Absolute (H) 6.9 K/mcL 03/05/24 (28 weeks) (1.4 - 6.5) Louisa Absolute 0.5 K/mcL 03/05/24 (28 weeks) (0.1 [...] % 05/28/24 (40 weeks) (0.0 - 0.8) Louisa Auto 6.2 % 05/28/24 (40 weeks) (1.7 - 9.3) Lymph Auto (L) 19.2 % 05/28/24 (40 weeks) (20.5 - 51.1) Neutro Auto 73.5 % 05/28/24 (40 weeks) (42.2 - 75.2) Louisa Absolute (H) 0.7 K/mcL 05/28/24 (40 weeks) [...] 03/08/24 Provider: Shalini Edward APRN Dexcom 6 technical writer and editor SIG: See instructions, Pt would like to [...] Status: Completed Ordered: 05/28/24 Provider: BandarUser, Generated oxytocin 10 units = 1 mL, [...] benzocaine-menthol 20%-0.5% topical spray (benzocaine-menthol 20-0.5% topical [place] [LTTL]) 1 chetan, Topical, As Directed, PRN: [...] 05/28/24 Provider: Kelvin Martinez MD LOC TAVERAS : [birth year] Immunizations tetanus/diphth/pertuss (Tdap) adult/adol 03/05/24 (25 [...] Sex: Female Wt: 3629 g Child's Name: [facility]: [facility] Comment: gestational diabetes, diet controlled LOC TAVERAS: [...] Adenoidectomy Age: 7 Years Date: 2002 LOC TAVERAS: [birth year] Social & Psychosocial History Social History Alcohol Past, Beer Employment/School Employed, Work/School description: Full-time, RN at [employer].. Exercise Comment: no regular exercise (11/22/2023 15:53 [...] Blood Transfusion Acceptable to Patient: -- LOC TAVERAS: [birth year] Plan and Patient Requests Desired Delivery Location: -- Education: -- Written Plan: -- Written Plan Location: -- Support Person/Coal Trimmer Machine Operator Relationship to Pt: -- Oral Intake OB: -- Labor Preferences: -- Non-Medicinal Pain Relief: -- Anesthesia/Pain Medication During Labor: -- Delivery Plan: -- Infant Feeding: -- Circumcision: Before discharge Baby For Adoption: -- Patient Requests: -- Father of the Baby's Name: -- Medical Biller Selected: -- Surrogate : -- Support Person's Name: -- LOC TAVERAS: 95 Education Educational Materials/Leaflets Provided Title/Topic Date Provided [facility] - Vaginal or Delivery Post Discharge Instructions 05/30/24 L&D Patient Education Plan of Care: Verbalizes understanding (05/29/24 - Mary Rivera) Ultrasound: Verbalizes understanding (11/22/23 - Shalini Edward APRN) Weight Gain: Verbalizes understanding (11/22/23 - Shalini Edward APRN) Patient Education Plan of Care: Verbalizes understanding (05/29/24 - Mary Rivera) NITIN LOC L : 95 Registration and Information Race: White Ethnicity: Not , , or Lithuanian Origin Marital Status: Single Language(s): Telugu Uatsdin Preference(s): None/No Preference Occupation/Education: Address, Phone, and Health Plans Home Address: [facility] [place] [id number] (Home), , -- Health Plans: 1 - [facility] Member/Group: [id number] Deductible: $ -- Type: [facility] Address: [address] [address] 2 - [facility] Member/Group: [id number] Deductible: $ -- Type: [facility] Address: [address] [address] 3 - [facility] Member/Group: -- Deductible: $ -- Type: Commercial Address: [facility] [address], [place] [address] 4 - [facility] Member/Group: -- Deductible: $ -- Type: Commercial Address: [facility] [address], [place] [address] General Information OB Provider(s) Information: Not explicitly recorded. May be noted in encounter section below. See below for detailed information for all visits and information. Delivery Center/Hospital Information: -- [facility] Provider Information: -- Referring Provider Information: Yfn Tejada MD Primary Provider Information: BEA ALONZO APRN, V /Partner Information: -- -- Support Person Information: -- Planned/Unplanned : -- Date Consent Signed for Tubal Ligation: -- Date Record Sent to Hospital: -- LOC TAVERAS : 95 Visits and Encounters (Known encounters since 08/21/2023. May include lab encounters.) Date Location Provider Type Medical Service 07/08/2024 [facility] Kelvin Martinez MD [facility] 06/18/2024 [facility] Kelvin Martinez MD [facility] 05/30/2024 [facility] -- Clinic [facility] 05/28/2024 Maira Martinez MD Inpatient Inpatient 05/23/2024 4 Yfn Tejada MD Clinic Clinic 05/16/2024 1 Rod Samuel MD Clinic Clinic 05/09/2024 [facility] Shalini Edward APRN Outpatient Lab 05/09/2024 [facility] Shalini Edward APRN Clinic Clinic 05/02/2024 2 Rod Samuel MD Clinic Clinic 04/30/2024 [facility] Yfn Tejada MD Outpatient 04/16/2024 [facility] -- Clinic Preadmit Clinic 04/16/2024 [facility] Yfn Tejada MD Clinic Clinic 04/05/2024 [facility] -- Between Visit -- 04/04/2024 6 Yfn Tejada MD Clinic Clinic 03/26/2024 [facility] -- Between Visit -- 03/22/2024 T2 Kelvin Martinez MD Clinic Clinic 03/22/2024 [facility] Shalini Edward APRN Outpatient 03/07/2024 [facility] -- Between Visit -- 03/06/2024 [facility]- -- Between Visit -- 03/05/2024 [facility]- -- Between Visit -- 03/05/2024 [facility] Shalini Edward, [facility] Outpatient Lab 03/05/2024 [facility] Shalini Edward, [facility] Clinic 02/02/2024 6 Yfn Tejada MD [facility] 01/22/2024 [facility] -- Between Visit -- 01/04/2024 [facility] -- Between Visit -- 01/03/2024 [facility] Shalini Edward, [facility] Outpatient Lab 01/03/2024 [facility]- Shalini Edward, [facility] 01/03/2024 [facility] Shalini Edward, [facility] Outpatient US 12/11/2023 [facility] -- Between Visit -- 11/22/2023 [facility] Shalini Edward, [facility] Outpatient Lab 11/22/2023 [facility] Shalini Edward, [facility] 09/29/2023 [facility] Yfn Tejada MD [facility] LOC TAVERAS : 95 Visit / Encounter Location Information The following information represents known location and contact information for locations visitedduring [facility] Business Address: [address] [place] [address] Phone:[phone] Sobrr) [facility] Business Address: [address] [address] Phone: No phone numbers found on file for location NITIN LOC Agustina : [birth year] Visit Diagnosis (Note: All [...] time of report creation END OF REPORT Patient Care team information Care Team Personnel Name: BEA ALONZO APRN, V Position: No Access Member Role: Primary Care Physician Address: [address] Care Team Related Persons Name: FAHAD TAVERAS Name: FAHAD TAVERAS Insurance Providers Guarantor name: LOC TAVERAS Health Plan Information #: 1 Payer: [facility] Member Number: NA Policy Number: NA
--- OUTSIDE RECORDS SUMMARY | 2024-10-17 21:11 | XMS_ITS | Encounter Summary ---
Author Organization [facility] Address [address] [place] [address] Care Team Providers Care Shipping Order Clerk Name Role Phone Unavailable Primary Care Provider Unavailabl e Encounter Details Date Type Department Care Team (Late st Contact Info) Description 07/12/2021 Lab Requisition [facility] Pathology & Laboratory Medicine - [facility] [address] [place] [address] Outr Resulting Lab, Provider Social History Tobacco [...] Comments ZZCOVID-19 TEST [facility] PCR Today 07/12/2021 9:00 EDT COVID-19 TESTING Routine 07/12/2021 9:00 EDT documented in this encounter Results * COVID-19 TEST [facility] PCR (07/12/2021 9:00 EDT) Swab ENTIRE NASOPHARYNX / Unknown 07/12/2021 9:00 EDT 07/12/2021 22:19 EDT us Provider Outr Resulting Lab MICROBIOLOGY - GENER AL ORDERABLES Final Result [facility] [address] [place] [address] * COVID-19 TESTING (07/12/2021 9:00 EDT) COVID-19 rt-PCR Result Negative Negative 07/13/2021 1:55 EDT [facility] Comment: This test has not [...] clinical observations, patient history, and epidemiological information. Performed on the Indiewalls Fusion instrument Performing Lab [facility] Lab 07/13/2021 1:55 EDT [facility] Swab 07/12/2021 9:00 EDT 07/12/2021 22:19 EDT us Provider Outr Resulting Lab MICROBIOLOGY - GENER AL ORDERABLES Final Result [facility] [address] [place] [address] documented in this encounter Visit Diagnoses Not on filedocumented in this encounter
--- OUTSIDE RECORDS SUMMARY | 2024-10-17 21:11 | XMS_ITS | Continuity of Care Document ---
Author Organization [facility] Address [address] [place] [address] Care Team Providers Care Gas Line Servicer Name Role Phone BEA ALONZO APRN, V Primary Care Physician Encounter [facility] [id number] Date(s): 01/03/24 - 01/03/24 [facility] [address] [place], [place] [phone]- us Discharge Disposition: Home or Self Care Attending Physician: Shalini Edward APRN Admitting Physician: Shalini Edward APRN Referring Physician: Shalini Edward APRN Allergies, Adverse Reactions, Alerts No Known Medication Allergies Assessment and Plan Future Appointments Appointment Date:02/02/2024 09:15:00 AM Scheduled Provider:Yfn Tejada MD Location:[facility] Appointment Type:OB Follow Up Medications [...] Exam Date Time Procedure Performing Provider Status 01/03/24 2:56 PM US OB Greater Than 14 Weeks Maira Huynh; Heide (Verified) Notes: (US OB Greater Than 14 Weeks) Reason For Exam: anatomy scan US OB Greater Than 14 Weeks EXAM DESCRIPTION: US OB Greater Than 14 Weeks 01/03/2024 INDICATION: ANATOMY SCAN TECHNIQUE: Grayscale and color Doppler obstetric ultrasound. COMPARISON: None FINDINGS: Single live uterine gestation in variable position with average ultrasound age of 19 weeks 3 days for an ultrasound EDC of 05/26/2024. Amniotic fluid volume is qualitatively normal. Posterior placenta with no previa, terminating greater than 2 cm from the internal os. BPD: 19 weeks 3 days. Head circumference: 19 weeks 4 days. Abdominal circumference: 20 weeks 0 days. Femur length: 18 weeks 4 days. heart rate was 142 bpm. Survey of anatomy reveals no obvious anomaly. Views of the face, head including lateral ventricles, choroid plexus and cerebellum, chest including four-chamber heart and outflow tract views, abdomen including stomach, kidneys, bladder and cord insertion, three-vessel umbilical cord, as well as views of the spine and extremities were submitted. Estimated weight is 286.0 grams which is the 48th percentile by LMP. IMPRESSION: Single live intrauterine gestation in variable position with average ultrasound age of 19 weeks 3 days for an ultrasound EDC of 05/26/2024. anatomy survey was completed. JOB #: [id number] Final Signed by: Yfn Wilcox MD Signed (Electronic Signature): 01/03/2024 3:09 pm Social History Social History Type Response Smoking Status Smoking tobacco use: Never tobacco user;Never entered on: 11/22/23 Sex Patient Care team information Care Team Personnel Name: BEA ALONZO APRN, V Position: No Access Member Role: Primary Care Physician Address: Address: [address] Care Team Related Persons Name: FAHAD TAVERAS
--- OUTSIDE RECORDS SUMMARY | 2024-10-17 21:11 | XMS_ITS | Continuity of Care Document ---
Author Organization [facility] Address [address] [place] [address] Care Team Providers Care Passenger Coach Driver Name Role Phone BEA ALONZO APRN, V Primary Care Physician Encounter [facility] NBR [id number] Date(s): 12/11/23 - 12/11/23 [facility] [address] [place], [place] [phone]- us Discharge Disposition: Home Assessment and Plan Future Appointments Appointment Date:01/03/2024 03:00:00 PM Scheduled Provider:Shalini Edward APRN Location:[facility] Appointment Type:OB Follow Up Future Scheduled Tests Radiology* US OB Greater Than 14 Weeks 01/03/24 Medications escitalopram 10 mg oral tablet 10 [...] Member Role: Primary Care Physician Address: Address: [address]
--- OUTSIDE RECORDS SUMMARY | 2024-10-17 21:11 | XMS_ITS | Continuity of Care Document ---
Author Organization [facility] Address [address] [place] [address] Care Team Providers Care Occupational Therapy Program Director Name Role Phone BEA ALONZO APRN, V Primary Care Physician ( [phone] Encounter [facility] NBR [id number] Date(s): 05/09/24 - 05/09/[address] [phone]- [place] Encounter Diagnosis Encounter for supervision of normal in multigravida in third trimester (Discharge Diagnosis) - 05/09/24 Discharge Disposition: Home or Self Care Attending Physician: Shalini Edward APRN Admitting Physician: Shalini Edward APRN Allergies, Adverse Reactions, Alerts No Known Medication Allergies Assessment and Plan Future Appointments Appointment Date:05/16/2024 09:15:00 AM Scheduled [...] # 90 tab, 4 Refill(s), Pharmacy: [facility], 165.1, cm, 05/02/24 16:11:00 EDT, [...] # 1 EA, 1 Refill(s), Pharmacy: [facility] 268 Start Date: 03/08/24 Status: Ordered freestyle freedom lite strips freestyle freedom lite strips, 4x daily testing. box of 100, Supply, See instructions, # 1 EA, 1 Refill(s), Pharmacy: [facility] 268 Start Date: 03/08/24 Status: [...] 2002 Completed Results Laboratory List Name Date Group B Strep (GeneXpert) 05/09/24 Most recent to oldest [Reference Range]: 1 Group B Strep (GeneXpert) [Negative] Pos itive *ABN* (05/09/24 4:32 PM) Social History Social History Type Response Smoking Status Smoking tobacco use: Never tobacco user;Never entered on: 11/22/23 Sex Patient Care team information Care Team Personnel Name: BEA ALONZO APRN, V Position: No Access Member Role: Primary Care Physician Address: Address: [address] Care Team Related Persons Name: FAHAD TAVERAS
--- OUTSIDE RECORDS SUMMARY | 2024-10-17 21:11 | XMS_ITS | Continuity of Care Document ---
Author Organization [facility] Address [address] [place] [address] Care Team Providers Care Senior Government Program Analyst Name Role Phone BEA ALONZO APRN, V Primary Care Physician Encounter [facility] NBR [id number] Date(s): 03/05/24 - 03/05/24 [facility] [address] [place], [place] [phone]- us Discharge Disposition: Home Allergies, Adverse Reactions, Alerts No Known Medication Allergies Assessment and Plan Future Appointments Appointment Date:03/22/2024 04:00:00 PM Scheduled Provider:Kelvin Martinez MD Location:[facility] Appointment Type:OB Follow Up Appointment Date:04/04/2024 04:00:00 [...] Member Role: Primary Care Physician Address: Address: [place] [address]- Care Team Related Persons Name: FAHAD TAVERAS Address: Home
--- OUTSIDE RECORDS SUMMARY | 2024-10-17 21:11 | XMS_ITS | Continuity of Care Document ---
Author Organization [facility] Ambulatory Clinics Address [address] [place] [address] Care Team Providers Care Cardboard Cutter Name Role Phone BEA ALONZO APRN, V Primary Care Physician Encounter [facility] NBR [id number] Date(s): 03/05/24 - 03/05/24 [facility] Ambulatory Clinics [address] [place] [address]- Encounter Diagnosis Encounter for supervision of normal in multigravida in third trimester (Discharge Diagnosis) - 03/05/24 Abnormal glucose tolerance test(Discharge Diagnosis) - 03/05/24 Size of fetus inconsistent with dates in third trimester(Discharge Diagnosis) - 03/05/24 Encounter for administration of vaccine(Discharge Diagnosis) - 03/05/24 Abnormal glucose complicating (Final) - Uterine size-date discrepancy, third trimester(Final) - 28 weeks gestation of (Final) - Encounter for immunization(Final) - Discharge Disposition: Home or Self Care Attending Physician: Shalini Edward APRN Allergies, Adverse Reactions, Alerts No Known Medication Allergies Assessment and Plan Extracted from: Title:OB Extended Office Visit Author:Shalini giron APRN Date:03/05/24 1.??Encounter for supervisio n of normal in multigravida in third trimester??Z34.83 ??+FM. Labs today, reviewed. TDAP today. ?? 2.??Abnormal glucose tolerance test??R73.09 ??Reviewed 1 hr GTT (151). Last 3 hr gtt elevated last two values. Discussed option of finger stick testing or have 3 hr. Given that she has no other risk factors or family hx, will have 3 hr drawn at [facility] on a Monday.?? Ordered: .GTT 1 HR OB 100gm, Blood, Routine, 03/05/24, Once, Lab Collect, Abnormal glucose tolerance test, Order for future visit .GTT 2 HR OB 100gm, Blood, Routine, 03/05/24, Once, Lab Collect, Abnormal glucose tolerance test, Order for future visit .GTT 3 HR OB 100gm, Blood, Routine, 03/05/24, Once, Lab Collect, Abnormal glucose tolerance test, Order for future visit .GTT Fasting OB, Blood, Routine, 03/05/24, Once, Lab Collect, Abnormal glucose tolerance test, Order for future visit ?? 3.??Size of fetus inconsistent with dates in third trimester??O26.843 ??Baby seems transverse which may be in part size<dates, however will check US for growth and CHANA. Ordered: US OB Follow Up, 03/22/24, Routine, Reason: growth/CHANA, [facility] will schedule, Consulting Dr: Shalini Edward APRN, Transport Mode: Ambulatory, Size of fetus inconsistent with dates in third trimester, ABN Status: Not Required ?? 4.??Encounter for administration of vaccine??Z23 ?? Given Adacel (Tdap), 0.5 mL, Intramuscular. For: Encounter for administration of vaccine Future Appointments Appointment Date:03/22/2024 04:00:00 PM Scheduled Provider:Kelvin aMrtinez MD Location:[facility] Appointment Type:OB Follow Up Appointment Date:04/04/2024 04:00:00 PM Scheduled Provider:Yfn Tejada MD Location:[facility] Appointment Type:OB Follow Up Appointment Date:04/16/2024 04:00:00 PM Scheduled Provider:Yfn Tejada MD Location:[facility] Appointment Type:OB Follow Up Appointment Date:05/02/2024 04:15:00 PM Scheduled Provider:Rod Samuel MD Location:[facility] Appointment Type:OB Follow Up Appointment Date:05/09/2024 04:15:00 PM Scheduled Provider:Shalini Edward APRN Location:[facility] Appointment Type:OB Follow Up Appointment Date:05/16/2024 09:15:00 AM Scheduled Provider:Rod Samuel MD Location:[facility] Appointment Type:OB Follow Up Appointment Date:05/23/2024 08:45:00 AM Scheduled Provider:Yfn Tejada MD Location:[facility] Appointment Type:OB Follow Up Appointment Date:05/30/2024 04:00:00 PM Scheduled Provider:Yfn Tejada MD Location:[facility] Appointment Type:OB Follow Up Future Scheduled Tests [...] [Reference Range]: 1 Protein Urine Dipstick Negative (03/05/24 8:48 AM) Glucose Urine Dipstick Negative (03/05/24 8:48 AM) Urine Color Urine Dipstick Dark yellow (03/05/24 8:48 AM) Urine Appearance Urine Dipstick Clear (03/05/24 8:48 AM) Vital Signs Most recent to oldest [Reference Range]: 1 Blood Pressure [90-140/60-90 mmHg] 122/7 6mmHg (03/05/24 8:48 AM) Mean Arterial Pressure, Cuff [65-140 mmH g] 91 mmHg (03/05/24 8:48 AM) Weight 64.4 kg (03/05/24 8:48 AM) Weight Measured (lbs) 141.978 lb (03/05/24 8:48 AM) Weight Dosing 64.400 kg (03/05/24 8:48 AM) [place] Body Weight Calculated 57 kg (03/05/24 8:48 AM) Height 165.1 cm (03/05/24 8:48 AM) Height/Length Measured (inches) 65 inch (03/05/24 8:48 AM) BSA Measured 1.72 m2 (03/05/24 8:48 AM) Body Mass Index 23.63 kg/m2 (03/05/24 8:48 AM) Social History Social History Type Response Smoking Status Smoking tobacco use: Never tobacco user;Never entered on: 11/22/23 Sex Physician Outpatient Note * Shalini Edward APRN: PERFORM Event Display: Office Clinic Note Physician Authored Date: [id number] LOC TAVERAS :1995 Age:28 years Sex:Female Visit Date:03/05/2024 Primary Care Physician: BEA ALONZO APRN, V Chief Complaint OB follow up had labs done today History of Present Illness OB f/u Visit Baby A Activity:Present per patient FHR Baseline:140 Vital Signs/Measurements Systolic Blood Wgjvjgll190 mmHg Diastolic Blood Aifuzqat75 mmHg Wnobgv61.4 kg Edema EdemaNone Urine POC Protein Urine DipstickNegative Glucose Urine DipstickNegative Fundal Height Fundal Kkoqlf95 cm Labor Labor Signs/SymptomsNone Additional Information Next Appointment2 weeks Physical Exam Vitals & Measurements BP:??122/76?? HT:??165.1??cm?? WT:??64.4??kg?? BMI:??23.63?? BSA:??1.72?? Assessment/Plan 1.??Encounter for supervision of normal in multigravida in third trimester??Z34.83 ??+FM. Labs today, reviewed. TDAP today. ?? 2.??Abnormal glucose tolerance test??R73.09 ??Reviewed 1 hr GTT (151). Last 3 hr gtt elevated last two values. Discussed option of finger stick testing or have 3 hr. Given that she has no other risk factors or family hx, will have 3 hr drawn at [facility] on a Monday.?? Ordered: .GTT 1 HR OB 100gm, Blood, Routine, 03/05/24, Once, Lab Collect, Abnormal glucose tolerance test, Order for future visit .GTT 2 HR OB 100gm, Blood, Routine, 03/05/24, Once, Lab Collect, Abnormal glucose tolerance test, Order for future visit .GTT 3 HR OB 100gm, Blood, Routine, 03/05/24, Once, Lab Collect, Abnormal glucose tolerance test, Order for future visit .GTT Fasting OB, Blood, Routine, 03/05/24, Once, Lab Collect, Abnormal glucose tolerance test, Order for future visit ?? 3.??Size of fetus inconsistent with dates in third trimester??O26.843 ??Baby seems transverse which may be in part size<dates, however will check US for growth and CHANA. Ordered: US OB Follow Up, 03/22/24, Routine, Reason: growth/CHANA, [facility] will schedule, Consulting Dr: Shalini Edward, BUCKLE ATTACHER, Transport Mode: Ambulatory, Size of fetus inconsistent with dates in third trimester, ABN Status: Not Required ?? 4.??Encounter for administration of vaccine??Z23 ?? Medications and Immunizations This Visit Given Adacel (Tdap), 0.5 mL, Intramuscular. For: Encounter for administration of vaccine Future Orders .GTT 1 HR OB 100gm, Blood, Routine, 03/05/24, Once, Lab Collect, Abnormal glucose tolerance test, Order for future visit .GTT 2 HR OB 100gm, Blood, Routine, 03/05/24, Once, Lab Collect, Abnormal glucose tolerance test, Order for future visit .GTT 3 HR OB 100gm, Blood, Routine, 03/05/24, Once, Lab Collect, Abnormal glucose tolerance test, Order for future visit .GTT Fasting OB, Blood, Routine, 03/05/24, Once, Lab Collect, Abnormal glucose tolerance test, Order for future visit US OB Follow Up, 03/22/24, Routine, Reason: growth/CHANA, [facility] will schedule, Consulting Dr: Shalini Edward, BUCKLE ATTACHER, Transport Mode: Ambulatory, Size of fetus inconsistent with dates in third trimester, ABN Status: Not Required Follow Up Instructions 2 weeks LMP/EGA/BRAD No qualifying data available. Gestational Age (EGA) and BRAD? * Note: EGA calculated as of 03/05/2024 ?? BRAD:??05/27/2024?EGA*:??28 weeks 1 day ?Type:??Authoritative?MethodDate:??08/21/2023 ?Method:??Last Menstrual Period??(08/21/2023) ?Confirmation:??Confirmed ?Description:??-- ?Comments:??-- ?Entered by:??Cheyanne Shields on 11/22/2023? Other BRAD Calculations for this : ?Method:??Ultrasound ?Method Date:??01/03/2024 ?BRAD:??05/26/2024 ?EGA (At Entry):??19 weeks 3 days ?Type:??Non-Authoritative ?Comments:??normal appearing anatomy ?Entered by:??Shalini Edward, BUCKLE ATTACHER on 01/03/2024 OB History History?(1,0,0,1)? # 1 ?Baby 1 ?Outcome Date:??04/06/2021?Outcome or Result:??Vaginal ?Gest Age:??40 weeks 2 days ? Outcome:??Live ? Sex:??Female?Wt:?3629 g ?Child's Name:??Jerica ?Hospital:??[facility] ?Comment:??gestational diabetes, diet controlled Risk Screening Risk [...] of normal in multigravida in second trimester Encounter for supervision of normal in multigravida [...] Daily magnesium glycinate 200 mg oral tablet, 200 mg= 1 tab, Daily omeprazole 20 mg oral delayed release capsule Multivitamins Allergies No Known Medication Allergies Social History Alcohol Past, Beer Electronic Cigarette/Vaping Electronic Cigarette Use: Never. 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 [...] Performed: 11/22/23 Rubella,Transcribed: Immune Electronically Signed on 03/05/2024 10:52 EDT Shalini Edward APRN Patient Care team information Care Team Personnel Name: BEA ALONZO APRN, V Position: No Access Member Role: Primary Care Physician Address: Address: [address] Care Team Related Persons Name: FAHAD TAVERAS Address: Home
--- OUTSIDE RECORDS SUMMARY | 2024-10-17 21:11 | XMS_ITS | Continuity of Care Document ---
Author Organization [facility] Address [address] [place] [address] Care Team Providers Care Automatic Tire Tester Name Role Phone BEA ALONZO APRN, V Primary Care Physician Encounter [facility] [id number] Date(s): 01/03/24 - 01/03/24 [facility] [address] [place], [place] [id number]- us Encounter Diagnosis Encounter for supervision of normal in multigravida in second trimester(Discharge Diagnosis) - 01/03/24 Encounter for supervision of other normal , second trimester(Final) - Weeks of gestation of not specified(Final) - Discharge Disposition: Home or Self Care Attending Physician: Shalini Edward APRN Admitting Physician: Shalini Edward APRN Allergies, Adverse Reactions, Alerts No Known Medication Allergies Assessment and Plan Future Appointments Appointment Date:02/02/2024 09:15:00 AM Scheduled Provider:Yfn Tejada MD Location:[facility] Appointment Type:OB Follow Up Medications [...] bone 2006 Completed Adenoidectomy 2002 Completed Results Orders for Microbiology Reports Name Date Urine Culture 01/03/24 Microbiology Reports TEST:Urine Culture STATUS:Order in Progress BODY SITE: SOURCE:Urine, Clean Catch COLLECTED DATE/TIME:01/03/24 3:10 PM PRELIMINARY REPORT No growth first am read Social History Social History Type Response Smoking Status Smoking tobacco use: Never tobacco user;Never entered on: 11/22/23 Sex Patient Care team information Care Team Personnel Name: BEA ALONZO APRN, V Position: No Access Member Role: Primary Care Physician Address: Address: [address] Care Team Related Persons Name: FAHAD TAVERAS
--- OUTSIDE RECORDS SUMMARY | 2024-10-17 21:11 | XMS_ITS | Continuity of Care Document ---
Author Organization [facility] Ambulatory Clinics Address [address] [place] [address] Care Team Providers Care Special Deputy Sheriff Name Role Phone BEA ALONZO APRN, V Primary Care Physician Encounter [facility] NBR [id number] Date(s): 05/23/24 - 05/23/24 [facility] Ambulatory Clinics [address] [place] [address]- Encounter Diagnosis Encounter for supervision of normal in multigravida in third trimester (Discharge Diagnosis) - 05/23/24 Diet controlled gestational diabetes mellitus(Discharge Diagnosis) - 05/23/24 Gestational diabetes mellitus in , diet controlled(Final) - 39 weeks gestation of (Final) - Discharge Disposition: Home or Self Care Attending Physician: Yfn Tejada MD Allergies, Adverse Reactions, Alerts No Known Medication Allergies Assessment and Plan Extracted from: Title:OB Extended Office Visit Author:Yfn logan MD Date:05/23/24 1.??Encounter for supervisio n of normal in multigravida in third trimester??Z34.83 ??Doing well.?? No problems?? Reports normal blood sugars.?? Follow up 1 week.? 2.??Diet controlled gestational diabetes mellitus??O24.410 Future Appointments Appointment Date:05/30/2024 04:00:00 PM Scheduled Provider:Yfn Tejada MD Location:[facility] Appointment Type:OB Follow Up Future [...] Daily, # 90 tab, 4 Refill(s), Pharmacy: [id number], 165.1, cm, 05/02/24 16:11:00 [...] instructions, # 1 EA, 1 Refill(s), Pharmacy: [id number] Start Date: 03/08/24 Status: Ordered freestyle freedom lite strips freestyle freedom lite strips, 4x daily testing. box of 100, Supply, See instructions, # 1 EA, 1 Refill(s), Pharmacy: [id number] Start Date: 03/08/24 Status: [...] [Reference Range]: 1 Protein Urine Dipstick Trace (05/23/24 8:44 AM) Glucose Urine Dipstick Negative (05/23/24 8:44 AM) Urine Color Urine Dipstick Yellow (05/23/24 8:44 AM) Urine Appearance Urine Dipstick Clear (05/23/24 8:44 AM) Vital Signs Most recent to oldest [Reference Range]: 1 Blood Pressure [90-140/60-90 mmHg] 106/7 0mmHg (05/23/24 8:44 AM) Mean Arterial Pressure, Cuff [65-140 mmH g] 82 mmHg (05/23/24 8:44 AM) Weight 64.4 kg (05/23/24 8:44 AM) Weight Measured (lbs) 141.978 lb (05/23/24 8:44 AM) Weight Dosing 64.400 kg (05/23/24 8:44 AM) Social History Social History Type Response Smoking Status Smoking tobacco use: Never tobacco user;Never entered on: 11/22/23 Sex Physician Outpatient Note * Yfn Tejada MD: PERFORM Event Display: Office Clinic Note Physician Authored Date: [id number] NITIN LOC L :1995 Age:28 years Sex:Female Visit Date:05/23/2024 Primary Care Physician: BEA ALONZO APRN, V Chief Complaint OB FU 39wks, 3d. No questions. Visit Vital Signs/Measurements Systolic Blood Kwdlpelq906 mmHg Diastolic Blood Tccsgqfk64 mmHg Wwivam38.4 kg Urine POC Protein Urine DipstickTrace Glucose Urine DipstickNegative Physical Exam Vitals & Measurements BP:??106/70?? WT:??64.4??kg?? Assessment/Plan 1.??Encounter for supervision of normal in multigravida in third trimester??Z34.83 ??Doing well.?? No problems?? Reports normal blood sugars.?? Follow up 1 week.?? 2.??Diet controlled gestational diabetes mellitus??O24.410 LMP/EGA/BRAD No qualifying data available. Gestational Age (EGA) and BRAD? * Note: EGA calculated as of 05/23/2024 ?? 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
--- OUTSIDE RECORDS SUMMARY | 2024-10-17 21:11 | XMS_ITS | Encounter Summary ---
Author Organization [facility] Address [address] [place] [address] Care Team Providers Care Aluminum Pool Installer Name Role Phone Unavailable Primary Care Provider Unavailabl e Encounter Details Date Type Department Care Team (Late st Contact Info) Description 10/15/2020 Lab Requisition [facility] Pathology & Laboratory Medicine - [address] [address] Outr Resulting Lab, Provider Social History Tobacco [...] Comments ZZCOVID-19 TEST [facility] PCR Today 10/14/2020 14:24 EST COVID-19 TESTING Routine 10/14/2020 14:2 4 EST documented in this encounter Results * COVID-19 TEST [facility] PCR (10/14/2020 14:24 EST) Swab ENTIRE NASOPHARYNX / Unknown 10/14/2020 14:24 EST 10/16/2020 7:21 EST us Provider Outr Resulting Lab MICROBIOLOGY - GENER AL ORDERABLES Final Result [facility] [address] [place] [address] * COVID-19 TESTING (10/14/2020 14:24 EST) COVID-19 rt-PCR Result Negative Negative 10/16/2020 13:45 EST [facility] Comment: This test has not [...] history, and epidemiological information. Performed on the NicOxher Fusion instrument Performing Lab [facility] Lab 10/16/2020 13:45 EST [facility] Swab 10/14/2020 14:2 4 EST 10/16/2020 7:21 EST us Provider Outr Resulting Lab MICROBIOLOGY - GENER AL ORDERABLES Final Result [facility] [address] [place] [address] documented in this encounter Visit Diagnoses Not on filedocumented in this encounter
--- OUTSIDE RECORDS SUMMARY | 2024-10-17 21:11 | XMS_ITS | Encounter Summary ---
Author Organization [facility] Address [address] [place] [address] Care Team Providers Care Repairer Auto Clocks Name Role Phone Unavailable Primary Care Provider Unavailabl e Encounter Details Date Type Department Care Team (Late st Contact Info) Description 03/25/2020 Lab Requisition [facility] Pathology & Laboratory Medicine - [facility] [address] [place] [address] Outr Resulting Lab, Provider Social History Tobacco Use Types Packs/Day Years Used Date Smoking Tobacco: Never Assessed Comments Unknown Sex and Gender Information Value Date Recorded Sex Assigned at Not on file Legal Sex Female 12:02 EDT Gender Identity Not on file Sexual Orientation Not on file documented as of this encounter Plan of Treatment Not on file documented as of this encounter Procedures Procedure Name Priority Date/Time Associated Diagnosis Comments DO NOT ORDER STANDALONE - BROAD COVID TEST Today 03/25/2020 7:39 EDT COVID-19 TESTING Routine 03/25/2020 7:39 EDT documented in this encounter Results * DO NOT ORDER STANDALONE - BROAD COVID TEST (03/25/2020 7:39 EDT) COVID-19 rt-PCR Result NEGATIVE Negative 03/27/2020 3:45 EDT [facility] Comment: 2019-novel Coronavirus (2019-nCoV) not detected by the qRT-PCR assay. Consider testing for other respiratory viruses or re-collecting for 2019-nCoV testing. Note: Optimum timing for peak viral levels during infections caused by 2019-nCoV have not been determined. Collection of multiple specimens from the same patient may be necessary to detect the virus. Limitations Positive results are indicative of active infection with SARS-CoV-2 but do not rule out bacterial infection or co-infection with other viruses. The agent detected may not be the definite cause of disease. In addition, detection of viral RNA may not indicate the presence of infectious virus or that SARS-CoV-2 is the causative agent for clinical symptoms. Negative results do not preclude SARS-CoV-2 infection and should not be used as the sole basis for patient management decisions. Negative results must be combined with clinical observations, patient history, and epidemiological information. False negative results may also occur if amplification inhibitors are present in the specimen or if inadequate numbers of organisms are present in the specimen. Optimum specimen types and timing for peak viral levels during infections caused by SARS-CoV-2 have not been fully determined. Collection of multiple specimens (types and time points) from the same patient may be necessary to detect the virus. The test was validated for use with upper respiratory specimens obtained via nasopharyngeal or oropharyngeal swabs in VTM, UTM, M4, M5, M6, saline, and MTM media. The performance of this test has not been established for other specimens. Specimens collected using other FDA recommended Specimen Collection Materials listed in the FDA COVID-19 [employer] communication (January 09, 2020) are processed with the caveat that they were not all validated for use with this test and the result must be interpreted in this context. Furthermore, a false negative results may occur if a specimen is improperly collected, transported or handled. If the virus mutates in the RT-PCR target region, SARS-CoV-2 may not be detected or may be detected less predictably. Inhibitors or other types of interference may produce a false negative result. An interference study evaluating the effect of common cold medications was not performed. This test is not FDA-cleared but its performance characteristics were established by our CLIA-certified, CAP-accredited, high complexity laboratory in accordance with CLIA regulations, [employer] (CAP) guidelines (Jan 02, 2020), and FDA guidance (Dec 14, 2019). This test is only for use under the Food and Drug Administration's Emergency Use Authorization. Swab ENTIRE NASOPHARYNX / Unknown 03/25/2020 7:39 EDT 03/25/2020 21:21 EDT us Provider Outr Resulting Lab MICROBIOLOGY - GENER AL ORDERABLES Final Result [facility] [place], [place] * COVID-19 TESTING (03/25/2020 7:39 EDT) [facility] COVID-19 rt-PCR Result NEGATIVE Negative 03/27/2020 7:31 EDT [facility] Comment: 2019-novel Coronavirus (2019-nCoV) not detected by the qRT-PCR assay. Consider testing for other respiratory viruses or re-collecting for 2019-nCoV testing. Note: Optimum timing for peak viral levels during infections caused by 2019-nCoV have not been determined. Collection of multiple specimens from the same patient may be necessary to detect the virus. Limitations Positive results are indicative of active infection with SARS-CoV-2 but do not rule out bacterial infection or co-infection with other viruses. The agent detected may not be the definite cause of disease. In addition, detection of viral RNA may not indicate the presence of infectious virus or that SARS-CoV-2 is the causative agent for clinical symptoms. Negative results do not preclude SARS-CoV-2 infection and should not be used as the sole basis for patient management decisions. Negative results must be combined with clinical observations, patient history, and epidemiological information. False negative results may also occur if amplification inhibitors are present in the specimen or if inadequate numbers of organisms are present in the specimen. Optimum specimen types and timing for peak viral levels during infections caused by SARS-CoV-2 have not been fully determined. Collection of multiple specimens (types and time points) from the same patient may be necessary to detect the virus. The test was validated for use with upper respiratory specimens obtained via nasopharyngeal or oropharyngeal swabs in VTM, UTM, M4, M5, M6, saline, and MTM media. The performance of this test has not been established for other specimens. Specimens collected using other FDA recommended Specimen Collection Materials listed in the FDA COVID-19 [employer] communication (January 09, 2020) are processed with the caveat that they were not all validated for use with this test and the result must be interpreted in this context. Furthermore, a false negative results may occur if a specimen is improperly collected, transported or handled. If the virus mutates in the RT-PCR target region, SARS-CoV-2 may not be detected or may be detected less predictably. Inhibitors or other types of interference may produce a false negative result. An interference study evaluating the effect of common cold medications was not performed. This test is not FDA-cleared but its performance characteristics were established by our CLIA-certified, CAP-accredited, high complexity laboratory in accordance with CLIA regulations, [employer] (CAP) guidelines (Jan 02, 2020), and FDA guidance (Dec 14, 2019). This test is only for use under the Food and Drug Administration's Emergency Use Authorization. Performing Lab [facility] [place] 03/27/2020 7:31 EDT [facility] Swab 03/25/2020 7:39 EDT 03/25/2020 21:21 EDT us Provider Outr Resulting Lab MICROBIOLOGY - GENER AL ORDERABLES Final Result [facility] [address] [place] [address] [facility] [place] [place] documented in this encounter Visit Diagnoses Not on filedocumented in this encounter
--- OUTSIDE RECORDS SUMMARY | 2024-10-17 21:11 | XMS_ITS | Referral Summary ---
Author Organization [facility] Address [address] [place] [address] Care Team Providers Care Customer Service Supervisor Name Role Phone Unavailable Primary Care Provider [...] Orientation Not on file Plan of Treatment Not on file
--- OUTSIDE RECORDS SUMMARY | 2024-10-17 21:11 | XMS_ITS | Continuity of Care Document ---
Author Organization [facility] Address [address] [place] [address] Care Team Providers Care Merchandise Collector Name Role Phone BEA ALONZO APRN, V Primary Care Physician Encounter [facility] [id number] Date(s): 02/02/24 - 02/02/24 [facility] [address] [place] [address]- Encounter Diagnosis Encounter for supervision of normal in multigravida in second trimester(Discharge Diagnosis) - 02/02/24 Discharge Disposition: Home or Self Care Attending Physician: Yfn Tejada MD Referring Physician: BEA ALONZO APRN, V Allergies, Adverse Reactions, Alerts No Known Medication Allergies Assessment and Plan Extracted from: Title:OB Extended Office Visit Author:Yfn logan MD Date:02/02/24 1.??Encounter for supervisio n of normal in multigravida in second trimester??Z34.82 Doing well.?? No problems.?? Has difficulty with reflux.?? Omeprazole ok Follow up 4 weeks. GCT next visit.? Future Appointments Appointment Date:03/05/2024 08:45:00 AM Scheduled Provider:Shalini Edward APRN Location:[facility] Appointment Type:OB Follow Up Medications [...] [Reference Range]: 1 Protein Urine Dipstick Trace (02/02/24 9:24 AM) Glucose Urine Dipstick Negative (02/02/24 9:24 AM) Urine Color Urine Dipstick Pale yellow (02/02/24 9:24 AM) Urine Appearance Urine Dipstick Clear (02/02/24 9:24 AM) Vital Signs Most recent to oldest [Reference Range]: 1 Blood Pressure [90-140/60-90 mmHg] 112/8 0mmHg (02/02/24 9:24 AM) Mean Arterial Pressure, Cuff [65-140 mmH g] 91 mmHg (02/02/24 9:24 AM) Weight 62.90 kg (02/02/24 9:24 AM) Weight Measured (lbs) 138.671 lb (02/02/24 9:24 AM) Weight Dosing 62.900 kg (02/02/24 9:24 AM) Social History Social History Type Response Smoking Status Smoking tobacco use: Never tobacco user;Never entered on: 11/22/23 Sex Physician Outpatient Note * Yfn Tejada MD: PERFORM Event Display: Office Clinic Note Physician Authored Date: [id number] LOC [place] :1995 Age:28 years Sex:Female Visit Date:02/02/2024 Primary Care Physician: BEA ALONZO APRN, V Chief Complaint OB FU 23wks, 4d. Omeprazole for acid reflux, wondering if okay for her to take. Visit Vital Signs/Measurements Systolic Blood Iwwvmuqn734 mmHg Diastolic Blood Dxtuujzm30 mmHg Xaqlvo71.90 kg Urine POC Protein Urine DipstickTrace Glucose Urine DipstickNegative Physical Exam Vitals & Measurements BP:??112/80?? WT:??62.90??kg?? Assessment/Plan 1.??Encounter for supervision of normal in multigravida in second trimester??Z34.82 Doing well.?? No problems.?? Has difficulty with reflux.?? Omeprazole ok Follow up 4 weeks. GCT next visit.?? LMP/EGA/BRAD No qualifying data available. Gestational Age (EGA) and BRAD? * Note: EGA calculated as of 02/02/2024 ?? BRAD:??05/27/2024?EGA*:??23 weeks 4 days ?Type:??Authoritative?Method Date:??08/21/2023 ?Method:??Last Menstrual [...] ? Sex:??Female?Wt:?3629 g ?Child's Name:??Jerica ?Hospital:[facility] ?Comment:??gestational diabetes, diet controlled Risk [...] oral tablet, 200 mg= 1 tab, Daily Multivitamins Allergies No Known Medication Allergies Social History Alcohol Past, Beer Electronic Cigarette/Vaping Electronic Cigarette Use: Never. Employment/School Employed, Work/School description: Full-time, RN at [employer] Exercise Home/Environment Lives with Children, [...] Performed: 11/22/23 Rubella,Transcribed: Immune Electronically Signed on 02/02/24 09:54 AM Yfn Tejada MD Patient Care team information Care Team Personnel Name: BEA ALONZO APRN, V Position: No Access Member Role: Primary Care Physician Address: Address: [address] Care Team Related Persons Name: FAHAD TAVERAS
== END 2024-10-17 21:10 | disposition home or self-care (01) ==
LOC: LBN 21:09
PROVIDERS: PCP Nurse Practitioner Family; Visit Provider Nurse Practitioner Family
DX: L65.9 Nonscarring hair loss, unspecified (principal)
CPT/HCPCS: 85027; 84443